=== PATIENT | female | born 1935 | race Caucasian/White ===

== ENCOUNTER 2016-05-12 19:58 | Inpatient (IN) | payer MEDICARE ==
[~2016-05-12] VITALS: Ht 167.6 cm; Wt 130.8 kg
[~2016-05-12 19:58] MED LIST: ALLO100 PO; ALLO100T PO; AMIO200T PO; BUME2TAB PO; CARV6.25 PO; KLOR20TA6 PO; LEVO.1 PO; LORTA5 PO; O2; OXYC-360 PO; PARO10TA PO; SPIR25 PO; SPIR25TA PO; SYNT100T PO; WARF-60 PO; WARF5TAB PO; WARF6 PO; bedside commode
[2016-05-12] MEDS ORDERED: SODIUM CHLORIDE 0.9% FLUSH 5 ML FLUSH IVF PRN (20:00)
[2016-05-12] MEDS ORDERED: FUROSEMIDE 40 MG/4 ML VIAL IVP ONE (20:00)
--- NOTE | 2016-05-12 20:09 | PD ---
HPI Chief Complaint: respiratory complaint Time Seen by Provider: 20:04 Travel History International Travel<30 days: No Contact w/Intl Traveler<30days: No Traveled to known affect area: No History of Present Illness HPI 80-year-old female presents to the emergency department by EMS transport from home for 6 hours of shortness of breath. Shortness of breath has been progressive. Patient has history of COPD and CHF. Patient uses supplemental oxygen 2 L per minute nasal cannula at all times at home. According to EMS her O2 saturations on 2 L/m nasal cannula was 86%. Patient was identified to have diffuse expiratory wheezes and diminished breath sounds and was placed on supplemental oxygen updraft treatments 2 and administer Solu-Medrol 125 mg. Patient's had no recent fever chills or productive cough. She denies chest pain. No report of referred neck jaw back shoulder arm or abdominal pain. No report of new lower from a pain or swelling. Patient is able to relay her history although does continue to complain of some shortness of breath. PFSH Past Medical History Narrative Medical CHF COPD mitral valve replacement endocarditis atrial fibrillation Coumadin therapy diabetes bowel obstruction renal insufficiency hypertension gouty arthritis hysterectomy hypothyroidism sleep apnea cholecystectomy appendectomy partial colectomy polypectomy malignant rectal cancer excision no tobacco use no alcohol use no substance use nursing notes reviewed Arthritis: Yes Asthma: No Atrial Fibrillation: Yes Heart Rhythm Problems: Yes (A-FIB) Cardiac Catheterization: Yes Cardiovascular Problems: Yes (MVR DUE TO ENDOCARDITIS) High Cholesterol: Yes Chest Pain: No Congestive Heart Failure: Yes COPD: Yes Diabetes: Yes Gastrointestinal Disorders: Yes (BOWEL OBSTRUCTION) Gout: Yes Genitourinary: Yes (RENAL INSUFFICIENCY A COMPLICATION OF HEART SURGERY) Hiatal Hernia: Yes Hypertension: Yes Immune Disorder: No Musculoskeletal: Yes (OSTEOARTHRITIS) Neurologic: No Psychiatric: No Reproductive: Yes (HYSTRECTOMY IN 1973) Respiratory: Yes Myocardial Infarction: No Pneumonia: Yes Renal Failure: Yes (CHRONIC RENAL INSUFFICENCY) Sleep Apnea: Yes Thyroid Disease: Yes Tubal Ligation: Yes Past Surgical History Abdominal Surgery: Yes (GALLBLADDER REMOVED 2000) Appendectomy: Yes Cardiac Surgery: Yes (MITRAL VALVE REPLACEMENT S/P ENDOCARDITIS) Cholecystectomy: Yes (2000) Coronary Artery Bypass Graft: No Ear Surgery: No Endocrine Surgery: No Eye Surgery: Yes (CATARACTS REMOVED 1998/ 2000/ 2001) Genitourinary Surgery: No Gynecologic Surgery: Yes (HYSTRECTOMY- 1973) Hysterectomy: Yes Oral Surgery: Yes (PLATES) Thoracic Surgery: No Tonsillectomy: Yes Other Surgery: Yes (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, COLON RESECTION, POLYPECTOMY) Social History Alcohol Use: No Tobacco Use: No Substance Use: No Allergies-Medications (Allergen,Severity, Reaction): Coded Allergies: Benzodiazepines (Verified Allergy, Severe, RAPID HEART BEAT, 05/12/16) Valium (Verified Allergy, Severe, Anxiety, 05/12/16) Clindamycin (Verified Adverse Reaction, Intermediate, chest pain, 05/12/16) Reported Meds & Prescriptions Reported Meds & Active Scripts Active Zyloprim (Allopurinol) 100 Mg Tab 100 Mg PO DAILY Bumex (Bumetanide) 2 Mg Tab 2 Mg PO DAILY 90 Days Synthroid 100 mcg (Levothyroxine Sodium) 100 Mcg Tab 100 Mcg PO DAILY 90 Days Coreg 6.25 mg (Carvedilol) 6.25 Mg Tab 6.25 Mg PO BID 90 Days [bedside commode] Dx: 278.01, 428 Reported Warfarin 2.5 Mg Tab 2.5 Mg PO SUNDAY Warfarin Sodium 5 Mg Tab 5 Mg PO EVERY DAY EXCEPT SUN Spironolactone 25 Mg Tab 25 Mg PO DAILY Hydrocodone/Acetaminophen 5 mg/325 mg 1 Tab Tab 1 Tab PO Q6H PRN Amiodarone Hcl (Amiodarone HCl) 200 Mg Tab 200 Mg PO DAILY Paroxetine Hcl 10 Mg Tab 10 Mg PO DAILYPRN K-Dur (Potassium Chloride) 20 Meq Tabcr 20 Meq PO DAILY [O2] 2 L PRN PRN Review of Systems Except as stated in HPI: all other systems reviewed are Neg General / Constitutional: No: Fever, Chills HENT: No: Congestion Cardiovascular: No: Chest Pain or Discomfort Respiratory: Positive: Shortness of Breath, Wheezing Gastrointestinal: No: Nausea, Vomiting, Abdominal Pain Genitourinary: No: Flank Pain Musculoskeletal: No: Myalgias, Arthralgias Skin: No Rash Neurologic: No: Weakness Psychiatric: No: Anxiety Hematologic/Lymphatic: No: Lymph Node Enlargement Physical Exam Narrative GENERAL: Well-developed well-nourished obese female in moderate respiratory distress able to convey her own history and speak and complete sentences. GCS 15. SKIN: Warm and dry. HEAD: Normocephalic. EYES: No scleral icterus. No injection or drainage. NECK: Supple, trachea midline. No JVD or lymphadenopathy. CARDIOVASCULAR: Regular rate and rhythm without murmurs, gallops, or rubs. RESPIRATORY: Breath sounds equal bilaterally markedly diminished bilaterally with extra wheezes and few rales right base. No accessory muscle use. GASTROINTESTINAL: Abdomen soft, non-tender, nondistended. MUSCULOSKELETAL: No cyanosis, or edema. BACK: Nontender without obvious deformity. No CVA tenderness. Data Data Last Documented VS Vital Signs Date Time Temp Pulse Resp B/P Pulse Ox O2 Delivery O2 Flow Rate FiO2 05/12/16 23:31 80 24 128/74 100 BiPAP 100 05/12/16 20:22 98.0 05/12/16 20:10 6.00 Orders Complete Blood Count With Diff (05/12/16 20:00) Basic Metabolic Panel (Bmp) (05/12/16 20:00) B-Type Natriuretic Peptide (05/12/16 20:00) Act Partial Throm Time (Ptt) (05/12/16 20:00) Prothrombin Time / Inr (Pt) (05/12/16 20:00) Magnesium (Mg) (05/12/16 20:00) Ckmb (Isoenzyme) Profile (05/12/16 20:00) Troponin I (05/12/16 20:00) Iv Access Insert/Monitor (05/12/16 20:00) Electrocardiogram (05/12/16 20:00) Ecg Monitoring (05/12/16 20:00) Oximetry (05/12/16 20:00) Oxygen Administration (05/12/16 20:00) Chest, Single Ap (05/12/16 20:00) Sodium Chloride 0.9% Flush (Ns Flush) (05/12/16 20:00) Furosemide Inj (Lasix Inj) (05/12/16 20:00) Albuterol-Ipratropium Neb (Duoneb Neb) (05/12/16 20:00) Urinary Catheter Insert/Apply (05/12/16 20:34) Arterial Blood Gas (Abg) (05/12/16 ) Albuterol-Ipratropium Neb (Duoneb Neb) (05/12/16 23:15) Resp Bipap / Cpap Non Invas Vt (05/12/16 ) Piperacil-Tazo 4.5 Gm Premix (Zosyn 4.5 (05/12/16 23:15) Blood Culture (05/12/16 23:05) Labs Laboratory Tests Test 05/12/16 20:20 White Blood Count 7.4 TH/MM3 Red Blood Count 3.91 MIL/MM3 Hemoglobin 12.9 GM/DL Hematocrit 38.8 % Mean Corpuscular Volume 99.3 FL Mean Corpuscular Hemoglobin 32.9 PG Mean Corpuscular Hemoglobin 33.1 % Concent Red Cell Distribution Width 16.1 % Platelet Count 186 TH/MM3 Mean Platelet Volume 10.0 FL Neutrophils (%) (Auto) 80.2 % Lymphocytes (%) (Auto) 7.8 % Monocytes (%) (Auto) 10.1 % Eosinophils (%) (Auto) 1.2 % Basophils (%) (Auto) 0.7 % Neutrophils # (Auto) 5.9 TH/MM3 Lymphocytes # (Auto) 0.6 TH/MM3 Monocytes # (Auto) 0.7 TH/MM3 Eosinophils # (Auto) 0.1 TH/MM3 Basophils # (Auto) 0.1 TH/MM3 CBC Comment DIFF FINAL Differential Comment Prothrombin Time 12.5 SEC Prothromb Time International 1.1 RATIO Ratio Activated Partial 23.3 SEC Thromboplast Time B-Type Natriuretic Peptide 191 PG/ML MDM Medical Decision Making Medical Screen Exam Complete: Yes Emergency Medical Condition: Yes Medical Record Reviewed: Yes Interpretation(s) EKG atrial fibrillation with controlled ventricular rate of 78 right bundle branch block pattern without acute ST elevation or acute injury pattern change noted Differential Diagnosis Dyspnea, exacerbation COPD, CHF, PE, pneumonia, ACS Narrative Course 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 Patient continues to deny any chest pain. O2 saturation on 2 L in the emergency department is 90% supplemental oxygen increased to 4 L/m nasal cannula @ 8:56 patient resting comfortably without work of breathing and O2 sats 92% 4 L /M NC @ 2135 patient at rest improved but marked dyspnea with minial exertion --plan for admission for CHF and copd exacerbation Diagnosis Primary Impression: COPD Additional Impressions: CHF (congestive heart failure) Qualified Code: I50.9 - Acute on chronic congestive heart failure, unspecified congestive heart failure type Pulmonary infiltrate Admitting Information Admitting Physician Requests: Admit Tasneem Alexander MD May 12, 2016 20:09
[2016-05-12 20:10] VITALS: O2SAT 97
[2016-05-12] MEDS ORDERED: WARF-18 PO (20:15)
[2016-05-12 20:18] VITALS: RESP 26; O2SAT 97
[2016-05-12 20:22] VITALS: BP 167/70; RESP 26; TEMP 98; O2SAT 97
[2016-05-12] MEDS: RESP: ALBUTEROL 2.5 MG/IPRATROPIUM 0.5 MG NEB (SCH) INH (20:22)
[2016-05-12 21:22] LABS: APTT (PATIENT) 23.3 SEC (24.3-30.1); INTERNATIONAL NORMALIZED RATIO 1.1 RATIO; PROTHROMBIN TIME - PATIENT 12.5 SEC (9.8-11.6)
--- NOTE | 2016-05-12 21:37 | RADRPT ---
EXAM DATE/TIME: 05/12/2016 20:13 [facility] COMPARISON: No previous studies available for comparison. INDICATIONS : SOB. MEDICAL HISTORY : Chronic obstructive pulmonary disease. SURGICAL HISTORY : CABG. ENCOUNTER: Initial ACUITY: 2 days PAIN SCORE: 0/10 LOCATION: chest FINDINGS: Heart size enlarged. Bilateral airspace disease predominantly left base and right upper lobe. Median sternotomy wires. No pneumothorax. Small effusions. CONCLUSION: 1. Global cardiomegaly with bilateral airspace disease most consolidative in the left lung base and r ight upper lobe. Primary differential diagnosis includes pneumonia and mild edema. Cyrus Espinoza MD on May 12, 2016 at 21:35 Board Certified Radiologist. This report was verified electronically.
[2016-05-12 21:39] LABS: AUTOMATED NEUTROPHIL # 5.9 TH/MM3 (1.8-7.7); BASOPHIL # 0.1 TH/MM3 (0-0.2); BASOPHIL % 0.7 % (0.0-2.0); EOSINOPHIL # 0.1 TH/MM3 (0-0.4); EOSINOPHIL % 1.2 % (0.0-4.0); HEMATOCRIT 38.8 % (35.0-46.0); HEMO FLAGS DIFF FINAL; LYMPH % 7.8 % (9.0-44.0); LYMPHOCYTE # 0.6 TH/MM3 (1.0-4.8); MEAN CELL VOLUME 99.3 FL (80.0-100.0); MEAN CORPUSCULAR HEMOGLOBIN 32.9 PG (27.0-34.0); MEAN CORPUSCULAR HGB CONC 33.1 % (32.0-36.0); MONO % 10.1 % (0.0-8.0); NEUT % 80.2 % (16.0-70.0); PLATELET COUNT 186 TH/MM3 (150-450); RED BLOOD COUNT 3.91 MIL/MM3 (4.00-5.30); RED CELL DISTRIBUTION WIDTH 16.1 % (11.6-17.2); WHITE BLOOD COUNT 7.4 TH/MM3 (4.0-11.0)
[2016-05-12 23:00] VITALS: O2SAT 100
[2016-05-12] MEDS ORDERED: RESP: ALBUTEROL 2.5 MG/IPRATROPIUM 0.5 MG NEB (SCH) NEB ONE (23:15)
[2016-05-12] MEDS ORDERED: PIPERACIL-TAZO 4.5 GM PREMIX 100 ML IV ONE (23:15)
[2016-05-12 23:31] VITALS: BP 128/74; PULSE 80; RESP 24; O2SAT 100
[2016-05-13] VITALS (13 sets, daily range): BP systolic 101–130; BP diastolic 50–77; PULSE 71–89; RESP 20–22; TEMP 97.7–98.7; O2SAT 91–99
[2016-05-13 00:11] LABS: BLOOD GAS BASE EXCESS 6.4 mmol/L (-2-2); BLOOD GAS CARBOXYHEMOGLOBIN 2.6 % (0-4); BLOOD GAS HCO3 32 mmol/L (22-26); BLOOD GAS METHEMOGLOBIN 1.7 % (0-2); BLOOD GAS O2 HGB SATURATION 96 % (90-100); BLOOD GAS OXYGEN CONTENT 17.8 Vol % (12.0-20.0); BLOOD GAS PCO2 58 mmHg (38-42); BLOOD GAS PO2 231 mmHG (61-120); BLOOD GAS TOTAL HGB 12.9 G/DL (12.0-16.0); TEMP CORR TO 98.6
[2016-05-13 00:11] LABS: BICARBONATE 32.3 MEQ/L (21.0-32.0); MAGNESIUM 2.1 MG/DL (1.5-2.5)
[2016-05-13 00:14] LABS: CRITICAL VALUE YES; OXYGEN DEVICE BiPAP
[2016-05-13 00:15] LABS: DRAW SITE LT RADIAL; FIO2 100 %; NUMBER OF ARTERIAL PUNCTURES 1; STAT YES; ULNAR PULSE PRESENT; VENT SETTINGS IPAP 14 /EPAP 5
[2016-05-13] MEDS ORDERED: BUMETANIDE INJ 1 MG/4 ML VIAL IV PUSH ONE (00:15)
[2016-05-13] MEDS ORDERED: SODIUM CHLORIDE 0.9% FLUSH 5 ML FLUSH IVF PRN ×2 (00:15→04:15)
[2016-05-13 00:16] LABS: POTASSIUM 5.2 MEQ/L (3.5-5.1)
[2016-05-13 01:01] LABS: BLOOD, URINE NEG (NEG); GLUCOSE,URINE NEG (NEG); KETONE, URINE NEG (NEG); MUCUS URINE FEW /lpf (OCC); NITRITE,URINE NEG (NEG); PH, URINE 5.5 (5.0-8.5); SQUAMOUS EPITHELIAL CELL URINE 1 /hpf (0-5); URINE COLOR YELLOW (YELLW/STRAW)
[2016-05-13 01:03] LABS: COMMENT (UR) CATH-CULT NOT IND; CULTURE IF INDICATED CATH CULTURE NOT IND
[2016-05-13] MEDS ORDERED: ONDANSETRON HCL 4 MG/2 ML VIAL IV PUSH ONE (01:30)
[2016-05-13] MEDS ORDERED: MORPHINE SULFATE 4 MG/ML INJ IV PUSH ONE (01:30)
[2016-05-13] MEDS ORDERED: CHLORHEXIDINE GLUCONATE 2 % 1 PACK (2 CLOTHS) TOP PRN (04:15)
[2016-05-13] MEDS ORDERED: ACETAMINOPHEN 325 MG TAB PO PRN (04:15)
[2016-05-13] MEDS ORDERED: MISCELLANEOUS NURSING INFORMATION XX SCH (04:15)
--- NOTE | 2016-05-13 04:41 | PD.CONS ---
[facility] Service Critical Care Medicine Consult Requested By Primary Care Physician Isac Chanel MD History of Present Illness HPI 80-year-old female presents to the emergency department by EMS transport from home for 6 hours of shortness of breath. Shortness of breath has been progressive. Patient has history of COPD and CHF. Patient uses supplemental oxygen 2 L per minute nasal cannula at all times at home. According to EMS her O2 saturations on 2 L/m nasal cannula was 86%. Patient was identified to have diffuse expiratory wheezes and diminished breath sounds and was placed on supplemental oxygen updraft treatments 2 and administer Solu-Medrol 125 mg. Patient's had no recent fever chills or productive cough. She denies chest pain. No report of referred neck jaw back shoulder arm or abdominal pain. No report of new lower from a pain or swelling. Patient is able to relay her history although does continue to complain of some shortness of breath. Patient was initiated on BiPAP. She was accepted by critical care medicine service for admission. When I evaluated the patient she was on BiPAP with full facemask. She had diuresed him 1 with Bumex. Stated that she is sleeping better. Denied any chest pain currently at the time of my evaluation. History PFSH Past Medical History Narrative Medical CHF COPD mitral valve replacement endocarditis atrial fibrillation Coumadin therapy diabetes bowel obstruction renal insufficiency hypertension gouty arthritis hysterectomy hypothyroidism sleep apnea cholecystectomy appendectomy partial colectomy polypectomy malignant rectal cancer excision no tobacco use no alcohol use no substance use nursing notes reviewed Arthritis: Yes Asthma: No Atrial Fibrillation: Yes Heart Rhythm Problems: Yes (A-FIB) Cardiac Catheterization: Yes Cardiovascular Problems: Yes (MVR DUE TO ENDOCARDITIS) High Cholesterol: Yes Chest Pain: No Congestive Heart Failure: Yes COPD: Yes Diabetes: Yes Gastrointestinal Disorders: Yes (BOWEL OBSTRUCTION) Gout: Yes Genitourinary: Yes (RENAL INSUFFICIENCY A COMPLICATION OF HEART SURGERY) Hiatal Hernia: Yes Hypertension: Yes Immune Disorder: No Musculoskeletal: Yes (OSTEOARTHRITIS) Neurologic: No Psychiatric: No Reproductive: Yes (HYSTRECTOMY IN 1973) Respiratory: Yes Myocardial Infarction: No Pneumonia: Yes Renal Failure: Yes (CHRONIC RENAL INSUFFICENCY) Sleep Apnea: Yes Thyroid Disease: Yes Tubal Ligation: Yes Past Surgical History Abdominal Surgery: Yes (GALLBLADDER REMOVED 2000) Appendectomy: Yes Cardiac Surgery: Yes (MITRAL VALVE REPLACEMENT S/P ENDOCARDITIS) Cholecystectomy: Yes (2000) Coronary Artery Bypass Graft: No Ear Surgery: No Endocrine Surgery: No Eye Surgery: Yes (CATARACTS REMOVED 2001) Genitourinary Surgery: No Gynecologic Surgery: Yes (HYSTRECTOMY- 1974) Hysterectomy: Yes Oral Surgery: Yes (PLATES) Thoracic Surgery: No Tonsillectomy: Yes Other Surgery: Yes (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, COLON RESECTION, POLYPECTOMY) Social History Alcohol Use: No Tobacco Use: No Substance Use: No Allergies-Medications Allergies-Medications (Allergen,Severity, Reaction): Coded Allergies: Benzodiazepines (Verified Allergy, Severe, RAPID HEART BEAT, 05/12/16) Valium (Verified Allergy, Severe, Anxiety, 05/12/16) Clindamycin (Verified Adverse Reaction, Intermediate, chest pain, 05/12/16) Reported Meds & Prescriptions Reported Meds & Active Scripts Active Zyloprim (Allopurinol) 100 Mg Tab 100 Mg PO DAILY Bumex (Bumetanide) 2 Mg Tab 2 Mg PO DAILY 90 Days Synthroid 100 mcg (Levothyroxine Sodium) 100 Mcg Tab 100 Mcg PO DAILY 90 Days Coreg 6.25 mg (Carvedilol) 6.25 Mg Tab 6.25 Mg PO BID 90 Days [bedside commode] Dx: 278.01, 428 Reported Warfarin 2.5 Mg Tab 2.5 Mg PO SUNDAY Warfarin Sodium 5 Mg Tab 5 Mg PO EVERY DAY EXCEPT SUN Spironolactone 25 Mg Tab 25 Mg PO DAILY Hydrocodone/Acetaminophen 5 mg/325 mg 1 Tab Tab 1 Tab PO Q6H PRN Amiodarone Hcl (Amiodarone HCl) 200 Mg Tab 200 Mg PO DAILY Paroxetine Hcl 10 Mg Tab 10 Mg PO DAILYPRN K-Dur (Potassium Chloride) 20 Meq Tabcr 20 Meq PO DAILY [O2] 2 L PRN PRN ROS Review of Systems Except as stated in HPI: all other systems reviewed are Neg General / Constitutional: No: Fever, Chills HENT: No: Congestion Cardiovascular: No: Chest Pain or Discomfort Respiratory: Positive: Shortness of Breath, Wheezing Gastrointestinal: No: Nausea, Vomiting, Abdominal Pain Genitourinary: No: Flank Pain Musculoskeletal: No: Myalgias, Arthralgias Skin: No Rash Neurologic: No: Weakness Psychiatric: No: Anxiety Hematologic/Lymphatic: No: Lymph Node Enlargement Past Family Social History Allergies: Coded Allergies: Benzodiazepines (Verified Allergy, Severe, RAPID HEART BEAT, 05/12/16) Valium (Verified Allergy, Severe, Anxiety, 05/12/16) Clindamycin (Verified Adverse Reaction, Intermediate, chest pain, 05/12/16) Physical Exam Vital Signs Vital Signs Date Time Temp Pulse Resp B/P Pulse Ox O2 Delivery O2 Flow Rate FiO2 05/13/16 04:09 97 60 05/13/16 02:47 18 05/13/16 01:52 82 22 102/75 97 BiPAP 100 05/13/16 00:10 95 50 05/12/16 23:31 80 24 128/74 100 BiPAP 100 05/12/16 23:00 100 100 05/12/16 20:31 26 98 Aerosol Mask 05/12/16 20:22 98.0 26 167/70 97 05/12/16 20:18 26 97 Aerosol Mask 05/12/16 20:18 Aerosol Mask 05/12/16 20:10 97 Nasal Cannula 6.00 Physical Exam Narrative GENERAL: Well-developed well-nourished obese female in moderate respiratory distress able to convey her own history and speak and complete sentences. GCS 15. SKIN: Warm and dry. HEAD: Normocephalic. EYES: No scleral icterus. No injection or drainage. NECK: Supple, trachea midline. No JVD or lymphadenopathy. CARDIOVASCULAR: Regular rate and rhythm without murmurs, gallops, or rubs. RESPIRATORY: Breath sounds equal bilaterally markedly diminished bilaterally with extra wheezes and few rales right base. No accessory muscle use. GASTROINTESTINAL: Abdomen soft, non-tender, nondistended. MUSCULOSKELETAL: No cyanosis, or edema. BACK: Nontender without obvious deformity. No CVA tenderness. Laboratory Laboratory Tests Test 05/12/16 05/12/16 05/12/16 20:20 23:20 23:59 White Blood Count 7.4 Red Blood Count 3.91 Hemoglobin 12.9 Hematocrit 38.8 Mean Corpuscular Volume 99.3 Mean Corpuscular Hemoglobin 32.9 Mean Corpuscular Hemoglobin 33.1 Concent Red Cell Distribution Width 16.1 Platelet Count 186 Mean Platelet Volume 10.0 Neutrophils (%) (Auto) 80.2 Lymphocytes (%) (Auto) 7.8 Monocytes (%) (Auto) 10.1 Eosinophils (%) (Auto) 1.2 Basophils (%) (Auto) 0.7 Neutrophils # (Auto) 5.9 Lymphocytes # (Auto) 0.6 Monocytes # (Auto) 0.7 Eosinophils # (Auto) 0.1 Basophils # (Auto) 0.1 CBC Comment DIFF FINAL Differential Comment Prothrombin Time 12.5 Prothromb Time International 1.1 Ratio Activated Partial 23.3 Thromboplast Time B-Type Natriuretic Peptide 191 Urine Color YELLOW Urine Turbidity CLEAR Urine pH 5.5 Urine Specific [place] 1.024 Urine Protein 30 Urine Glucose (UA) NEG Urine Ketones NEG Urine Occult Blood NEG Urine Nitrite NEG Urine Bilirubin NEG Urine Urobilinogen 2.0 Urine Leukocyte Esterase NEG Urine RBC 1 Urine WBC 1 Urine Squamous Epithelial 1 Cells Urine Mucus FEW Microscopic Urinalysis Comment CATH-CULT NOT IND Sodium Level 138 Potassium Level 5.2 Chloride Level 97 Carbon Dioxide Level 32.3 Anion Gap 9 Blood Urea Nitrogen 30 Creatinine 1.42 Estimat Glomerular Filtration 35 Rate Random Glucose 150 Calcium Level 8.9 Magnesium Level 2.1 Total Creatine Kinase 66 Troponin I 0.03 Blood Gas Puncture Site LT RADIAL Blood Gas Patient Temperature 98.6 Blood Gas HCO3 32 Blood Gas Base Excess 6.4 Blood Gas Oxygen Saturation 96 Arterial Blood pH 7.36 Arterial Blood Partial 58 Pressure CO2 Arterial Blood Partial 231 Pressure O2 Arterial Blood Oxygen Content 17.8 Arterial Blood 2.6 Carboxyhemoglobin Arterial Blood Methemoglobin 1.7 Blood Gas Hemoglobin 12.9 Oxygen Delivery Device BiPAP Blood Gas Ventilator Setting IPAP 14 /EPAP 5 Blood Gas Inspired Oxygen 100 Date/Time Procedure Status Source Growth 05/12/16 23:55 Aerobic Blood Culture Received Blood Peripheral Pending 05/12/16 23:55 Anaerobic Blood Culture Received Blood Peripheral Pending Result Diagram: 05/12/16201905/12/16 2320 Imaging Last Impressions Chest X-Ray 05/12/161999 Signed Impressions: Service Date/Time: Thursday, May 12, 2016 20:13 - CONCLUSION: 1. Global cardiomegaly with bilateral airspace disease most consolidative in the left lung base and right upper lobe. Primary differential diagnosis includes pneumonia and mild edema. Cyrus Espinoza MD Assessment and Plan Assessment and Plan 80-year-old female with: Acute respiratory failure requiring BiPAP CHF Suspected pneumonia COPD A. fib Diabetes mellitus Hypertension Gout History of mitral valve replacement for endocarditis History of A. fib Plan: Neuro: Follow neuro status, pain medications as needed. Cardiovascular: Diuresis with Bumex, strict intake output, watch for hypotension. Continue amiodarone, Coreg. Continue Coumadin for anticoagulation Pulmonary: Continue BiPAP for noninvasive positive pressure ventilation. Bronchodilators, Solu-Medrol GI/liver: Nothing by mouth for now. If respiratory status improves, initiated. Diet in a.m. /renal: Diurese with Bumex, strict intake output, monitor and replete electrolytes, follow BUN/creatinine ID: Empiric antibiotic coverage with IV cefepime for suspected pneumonia Endocrine: SSI for glycemic control Heme: Follow CBC Prophylaxis: PPI/SCDs/heparin. Coumadin to be continued. Condition critical Time spent on critical care excluding procedures 50 minutes Jayden Lawrence MD May 13, 2016 04:41
[2016-05-13] MEDS ORDERED: PARoxetine HCL 20 MG TAB PO PRN (04:45)
[2016-05-13] MEDS: LEVOTHYROXINE SODIUM 100 MCG TAB PO SCH (06:00)
[2016-05-13] MEDS: CEFEPIME INJ 1,000 MG in SODIUM CHLORIDE 0.9% INJ 100 ML IV SCH ×3 (06:04→21:06)
[2016-05-13] MEDS: HEPARIN SODIUM - SQ 10,000 UNITS/ML VIAL SQ SCH ×3 (06:04→21:05)
[2016-05-13] MEDS: INSULIN ASPART SUPPLEMENTAL SCALE SQ SCH ×4 (06:12→21:00)
[2016-05-13] MEDS: CHLORHEXIDINE 0.12% (ORAL KIT) 15 ML CUP MT SCH ×2 (08:00→20:00)
[2016-05-13] MEDS: BUMETANIDE INJ 1 MG/4 ML VIAL IV PUSH SCH ×2 (08:38→18:17)
[2016-05-13] MEDS: PANTOPRAZOLE SODIUM 40 MG VIAL IV SCH (08:38)
[2016-05-13] MEDS: SPIRONOLACTONE 25 MG TAB PO SCH (08:39)
[2016-05-13] MEDS: AMIODARONE 200 MG TAB PO SCH (08:39)
[2016-05-13] MEDS: methylPREDNISolone SOD SUCC 125 MG/2 ML VIAL IV PUSH SCH ×2 (08:39→21:05)
[2016-05-13] MEDS: CARVEDILOL 6.25 MG TAB PO SCH ×2 (08:39→21:07)
[2016-05-13] MEDS: ALLOPURINOL 100 MG TAB PO SCH (08:40)
[2016-05-13] MEDS: SODIUM CHLORIDE 0.9% FLUSH 5 ML FLUSH IVF SCH ×2 (08:40→21:07)
[2016-05-13] MEDS ORDERED: SODIUM CHLORIDE 0.9% FLUSH 5 ML FLUSH IVF SCH (09:00)
[2016-05-13 09:06] LABS: AUTOMATED NEUTROPHIL # 5.3 TH/MM3 (1.8-7.7); BASOPHIL % 0.3 % (0.0-2.0); HEMATOCRIT 38.1 % (35.0-46.0); HEMO FLAGS DIFF FINAL; LYMPH % 3.3 % (9.0-44.0); LYMPHOCYTE # 0.2 TH/MM3 (1.0-4.8); MEAN CELL VOLUME 99.9 FL (80.0-100.0); MEAN CORPUSCULAR HEMOGLOBIN 32.3 PG (27.0-34.0); MEAN CORPUSCULAR HGB CONC 32.4 % (32.0-36.0); MONO % 1.4 % (0.0-8.0); PLATELET COUNT 155 TH/MM3 (150-450); RED BLOOD COUNT 3.81 MIL/MM3 (4.00-5.30); RED CELL DISTRIBUTION WIDTH 15.9 % (11.6-17.2); WHITE BLOOD COUNT 5.6 TH/MM3 (4.0-11.0)
[2016-05-13 09:17] LABS: INTERNATIONAL NORMALIZED RATIO 1.2 RATIO; PROTHROMBIN TIME - PATIENT 12.9 SEC (9.8-11.6)
[2016-05-13 09:43] LABS: BICARBONATE 33.8 MEQ/L (21.0-32.0); MAGNESIUM 2.1 MG/DL (1.5-2.5); POTASSIUM 4.9 MEQ/L (3.5-5.1)
[2016-05-13] MEDS: ACETAMINOPHEN/HYDROcodone 325 MG/5 MG TAB PO PRN (18:17)
[2016-05-13] MEDS: WARFARIN SOD 5 MG TAB PO SCH (18:19)
[2016-05-14] VITALS (12 sets, daily range): BP systolic 105–144; BP diastolic 57–65; PULSE 55–75; RESP 20; TEMP 98–98.8; O2SAT 89–95
[2016-05-14] MEDS: CHLORHEXIDINE GLUCONATE 2 % 1 PACK (2 CLOTHS) TOP SCH (04:00)
[2016-05-14] MEDS: HEPARIN SODIUM - SQ 10,000 UNITS/ML VIAL SQ SCH ×3 (05:26→21:17)
[2016-05-14] MEDS: CEFEPIME INJ 1,000 MG in SODIUM CHLORIDE 0.9% INJ 100 ML IV SCH ×3 (05:26→21:18)
[2016-05-14] MEDS: LEVOTHYROXINE SODIUM 100 MCG TAB PO SCH (05:27)
[2016-05-14] MEDS: INSULIN ASPART SUPPLEMENTAL SCALE SQ SCH ×4 (05:59→21:18)
[2016-05-14 06:09] LABS: AUTOMATED NEUTROPHIL # 6.7 TH/MM3 (1.8-7.7); BASOPHIL % 0.1 % (0.0-2.0); HEMATOCRIT 37.5 % (35.0-46.0); HEMO FLAGS DIFF FINAL; LYMPH % 3.3 % (9.0-44.0); LYMPHOCYTE # 0.2 TH/MM3 (1.0-4.8); MEAN CELL VOLUME 100.7 FL (80.0-100.0); MEAN CORPUSCULAR HEMOGLOBIN 31.8 PG (27.0-34.0); MEAN CORPUSCULAR HGB CONC 31.6 % (32.0-36.0); MONO % 4.8 % (0.0-8.0); NEUT % 91.8 % (16.0-70.0); PLATELET COUNT 146 TH/MM3 (150-450); RED BLOOD COUNT 3.73 MIL/MM3 (4.00-5.30); WHITE BLOOD COUNT 7.3 TH/MM3 (4.0-11.0)
[2016-05-14 06:20] LABS: ALT (GPT) 22 U/L (10-53); ANION GAP 6 MEQ/L (5-15); AST (GOT) 19 U/L (15-37); BICARBONATE 33.4 MEQ/L (21.0-32.0); BLOOD UREA NITROGEN 46 MG/DL (7-18); CHLORIDE 98 MEQ/L (98-107); GLOMERULAR FILTRATION RATE 26 ML/MIN (>89); POTASSIUM 4.8 MEQ/L (3.5-5.1); SODIUM (NA) 137 MEQ/L (136-145)
[2016-05-14 06:23] LABS: ALKALINE PHOSPHATASE 48 U/L (45-117); TOTAL BILIRUBIN ADULT 0.7 MG/DL (0.2-1.0)
[2016-05-14] MEDS: ACETAMINOPHEN/HYDROcodone 325 MG/5 MG TAB PO PRN ×3 (06:38→19:39)
[2016-05-14] MEDS: CHLORHEXIDINE 0.12% (ORAL KIT) 15 ML CUP MT SCH ×2 (08:00→20:00)
[2016-05-14] MEDS: BUMETANIDE INJ 1 MG/4 ML VIAL IV PUSH SCH (09:02)
[2016-05-14] MEDS: SODIUM CHLORIDE 0.9% FLUSH 5 ML FLUSH IVF SCH ×2 (09:02→21:00)
[2016-05-14] MEDS: methylPREDNISolone SOD SUCC 125 MG/2 ML VIAL IV PUSH SCH ×2 (09:02→21:17)
[2016-05-14] MEDS: PANTOPRAZOLE SODIUM 40 MG VIAL IV SCH (09:02)
[2016-05-14] MEDS: CARVEDILOL 6.25 MG TAB PO SCH ×2 (09:03→21:00)
[2016-05-14] MEDS: SPIRONOLACTONE 25 MG TAB PO SCH (09:03)
[2016-05-14] MEDS: ALLOPURINOL 100 MG TAB PO SCH (09:03)
[2016-05-14] MEDS: AMIODARONE 200 MG TAB PO SCH (09:03)
--- NOTE | 2016-05-14 09:14 | HHI.CCPN ---
Subjective Remarks/Hospital Course 80-year-old female presents to the emergency department by EMS transport from home for 6 hours of shortness of breath. Shortness of breath has been progressive. Patient has history of COPD and CHF. Patient uses supplemental oxygen 2 L per minute nasal cannula at all times at home. According to EMS her O2 saturations on 2 L/m nasal cannula was 86%. Patient was identified to have diffuse expiratory wheezes and diminished breath sounds and was placed on supplemental oxygen updraft treatments 2 and administer Solu-Medrol 125 mg. Patient's had no recent fever chills or productive cough. She denies chest pain. No report of referred neck jaw back shoulder arm or abdominal pain. No report of new lower from a pain or swelling. Patient is able to relay her history although does continue to complain of some shortness of breath. Patient was initiated on BiPAP. She was accepted by critical care medicine service for admission. When I evaluated the patient she was on BiPAP with full facemask. She had diuresed him 1 with Bumex. Stated that she is sleeping better. Denied any chest pain currently at the time of my evaluation. 05/14 Patient was on BIPAP from 11p to 5am. Now on 50% VM. Afebrile. Objective Vital Signs Date Time Temp Pulse Resp B/P Pulse Ox O2 Delivery O2 Flow Rate FiO2 05/14/16 08:00 75 05/14/16 08:00 98.0 20 115/65 89 05/14/16 08:00 Venturi Mask 50 05/14/16 05:40 6.00 Intake and Output 05/13/16 05/13/16 05/14/16 08:00 16:00 00:00 Intake Total 100 ml 1000 ml Output Total 1000 ml 425 ml Balance -900 ml 575 ml Result Diagram: 05/14/16 0536 05/14/16 0536 Other Results Laboratory Tests Test 05/14/16 05:36 White Blood Count 7.3 TH/MM3 Red Blood Count 3.73 MIL/MM3 Hemoglobin 11.9 GM/DL Hematocrit 37.5 % Mean Corpuscular Volume 100.7 FL Mean Corpuscular Hemoglobin 31.8 PG Mean Corpuscular Hemoglobin 31.6 % Concent Red Cell Distribution Width 16.0 % Platelet Count 146 TH/MM3 Mean Platelet Volume 9.3 FL Neutrophils (%) (Auto) 91.8 % Lymphocytes (%) (Auto) 3.3 % Monocytes (%) (Auto) 4.8 % Eosinophils (%) (Auto) 0.0 % Basophils (%) (Auto) 0.1 % Neutrophils # (Auto) 6.7 TH/MM3 Lymphocytes # (Auto) 0.2 TH/MM3 Monocytes # (Auto) 0.4 TH/MM3 Eosinophils # (Auto) 0.0 TH/MM3 Basophils # (Auto) 0.0 TH/MM3 CBC Comment DIFF FINAL Differential Comment Sodium Level 137 MEQ/L Potassium Level 4.8 MEQ/L Chloride Level 98 MEQ/L Carbon Dioxide Level 33.4 MEQ/L Anion Gap 6 MEQ/L Blood Urea Nitrogen 46 MG/DL Creatinine 1.87 MG/DL Estimat Glomerular Filtration 26 ML/MIN Rate Random Glucose 145 MG/DL Calcium Level 8.4 MG/DL Total Bilirubin 0.7 MG/DL Aspartate Amino Transf 19 U/L (AST/SGOT) Alanine Aminotransferase 22 U/L (ALT/SGPT) Alkaline Phosphatase 48 U/L Total Protein 6.5 GM/DL Albumin 3.1 GM/DL Imaging Last Impressions Chest X-Ray 05/12/161999 Signed Impressions: Service Date/Time: Thursday, May 12, 2016 20:13 - CONCLUSION: 1. Global cardiomegaly with bilateral airspace disease most consolidative in the left lung base and right upper lobe. Primary differential diagnosis includes pneumonia and mild edema. Cyrus Espinoza MD Objective Remarks GENERAL: Patient is 80 yo lying in bed in mild resp distress SKIN: Warm and dry. HEAD: Normocephalic. EYES: No scleral icterus. No injection or drainage. NECK: Supple, trachea midline. No JVD or lymphadenopathy. CARDIOVASCULAR: Regular rate and rhythm without murmurs, gallops, or rubs. RESPIRATORY: Breath sounds equal bilaterally. No accessory muscle use. GASTROINTESTINAL: Abdomen soft, non-tender, nondistended. MUSCULOSKELETAL: No cyanosis, or edema. Neuro: Awake and alert A/P Assessment and Plan 80-year-old female with: Acute respiratory failure requiring BiPAP CHF Suspected pneumonia Gram positive bacteremia COPD A. fib Diabetes mellitus Hypertension Gout History of mitral valve replacement for endocarditis History of A. fib Plan: Neuro: Awake and alert, Monitor neuro status, CV: Monitor HR and BP keep MAP>65mmHg. Continue Amiodarone 200mg daily, Coreg 6.25mg BID. Continue Coumadin for anticoagulation Check 2D echo to eval LV function Pulm: Wean down oxygen as adriano keep sat >92% Bronchodilators, solumederol 60mg Q12 NIPPV PRN for resp distress GI/liver: On PO diet /renal: Monitor renal function, I/O's, electrolytes replacement as needed Decrease Bumex 1mg daily, renal function worse today with Cr: 1.87 from 1.58 ID: Empiric antibiotic coverage with IV cefepime for suspected pneumonia Add Vancomycin, pharmacy to dose per renal function. check BC x 2 sets 05/12 BC 05/27 bottles: [facility] Endocrine: SSI for glycemic control Heme: Monitor CBC, INR/PT- on coumadin Prophylaxis: PPI/SCDs/heparin. On Coumadin monitor INR/PT PT eval and treat Level 3 Lilly Kenney MD May 14, 2016 09:14
[2016-05-14] MEDS ORDERED: VANCOMYCIN INJ 1,000 MG in SODIUM CHLOR 0.9% 250 ML INJ 250 ML IV ONE (09:15)
[2016-05-14] MEDS ORDERED: Vancomycin Consult Pharmacy 1 EA OTHER SCH (09:15)
[2016-05-14 10:41] LABS: INTERNATIONAL NORMALIZED RATIO 1.3 RATIO
[2016-05-14] MEDS: RESP: ALBUTEROL 2.5 MG/IPRATROPIUM 0.5 MG NEB (SCH) NEB ×4 (11:36→23:32)
[2016-05-14] MEDS: WARFARIN SOD 5 MG TAB PO SCH (17:00)
[2016-05-15] VITALS (14 sets, daily range): BP systolic 113–137; BP diastolic 55–76; PULSE 53–61; RESP 18–24; TEMP 97.5–98.4; O2SAT 92–96
[2016-05-15] MEDS: CHLORHEXIDINE GLUCONATE 2 % 1 PACK (2 CLOTHS) TOP SCH ×2 (04:00→22:45)
[2016-05-15] MEDS: RESP: ALBUTEROL 2.5 MG/IPRATROPIUM 0.5 MG NEB (SCH) NEB ×3 (04:12→11:40)
[2016-05-15] MEDS: ACETAMINOPHEN/HYDROcodone 325 MG/5 MG TAB PO PRN ×4 (05:04→16:44)
[2016-05-15] MEDS: LEVOTHYROXINE SODIUM 100 MCG TAB PO SCH (05:04)
[2016-05-15] MEDS: HEPARIN SODIUM - SQ 10,000 UNITS/ML VIAL SQ SCH ×3 (05:04→20:04)
[2016-05-15] MEDS: CEFEPIME INJ 1,000 MG in SODIUM CHLORIDE 0.9% INJ 100 ML IV SCH ×3 (05:04→22:45)
--- NOTE | 2016-05-15 05:26 | RADRPT ---
EXAM DATE/TIME: 05/15/2016 04:54 [place] COMPARISON: CHEST SINGLE AP, May 12, 2016, 20:13. INDICATIONS : Shortness of breath, possible pulmonary disease. MEDICAL HISTORY : Chronic obstructive pulmonary disease. SURGICAL HISTORY : CABG. ENCOUNTER: Subsequent ACUITY: 4 - 6 days PAIN SCORE: 0/10 LOCATION: Bilateral chest FINDINGS: There continues to be consolidation in the left lower lung which is stable compared to prior study. T he right lung is grossly clear and well-aerated. The previously noted infiltrate in the right upper l mabel has resolved. No new infiltrates are demonstrated. There is evidence of previous cardiothoracic s urgery. Heart size is enlarged but stable. The bony structures are stable. CONCLUSION: 1. The previously noted infiltrate in the right upper lung has resolved. 2. Stable parenchymal consolidation the left lung base. Gerard Quick MD on May 15, 2016 at 5:23 Board Certified Radiologist. This report was verified electronically.
[2016-05-15] MEDS: INSULIN ASPART SUPPLEMENTAL SCALE SQ SCH ×4 (06:14→20:03)
[2016-05-15 07:19] LABS: AUTOMATED NEUTROPHIL # 7.7 TH/MM3 (1.8-7.7); HEMATOCRIT 36.7 % (35.0-46.0); HEMO FLAGS DIFF FINAL; INTERNATIONAL NORMALIZED RATIO 1.5 RATIO; LYMPH % 2.6 % (9.0-44.0); LYMPHOCYTE # 0.2 TH/MM3 (1.0-4.8); MEAN CELL VOLUME 99.1 FL (80.0-100.0); MEAN CORPUSCULAR HEMOGLOBIN 32.2 PG (27.0-34.0); MEAN CORPUSCULAR HGB CONC 32.5 % (32.0-36.0); MONO % 4.2 % (0.0-8.0); NEUT % 93.2 % (16.0-70.0); PLATELET COUNT 174 TH/MM3 (150-450); PROTHROMBIN TIME - PATIENT 16.5 SEC (9.8-11.6); RED CELL DISTRIBUTION WIDTH 15.9 % (11.6-17.2); WHITE BLOOD COUNT 8.2 TH/MM3 (4.0-11.0)
[2016-05-15 07:44] LABS: BICARBONATE 29.3 MEQ/L (21.0-32.0); POTASSIUM 4.8 MEQ/L (3.5-5.1)
[2016-05-15] MEDS: CHLORHEXIDINE 0.12% (ORAL KIT) 15 ML CUP MT SCH ×2 (08:00→20:00)
[2016-05-15] MEDS: ALLOPURINOL 100 MG TAB PO SCH (08:51)
[2016-05-15] MEDS: PANTOPRAZOLE SODIUM 40 MG VIAL IV SCH (08:51)
[2016-05-15] MEDS: AMIODARONE 200 MG TAB PO SCH (08:51)
[2016-05-15] MEDS: methylPREDNISolone SOD SUCC 125 MG/2 ML VIAL IV PUSH SCH (08:51)
[2016-05-15] MEDS: BUMETANIDE INJ 1 MG/4 ML VIAL IV PUSH SCH (08:51)
[2016-05-15] MEDS: SPIRONOLACTONE 25 MG TAB PO SCH (08:51)
[2016-05-15] MEDS: SODIUM CHLORIDE 0.9% FLUSH 5 ML FLUSH IVF SCH ×2 (08:52→20:04)
[2016-05-15] MEDS: CARVEDILOL 6.25 MG TAB PO SCH ×2 (09:00→20:04)
--- NOTE | 2016-05-15 09:50 | HHI.CCPN ---
Subjective Remarks/Hospital Course 80-year-old female presents to the emergency department by EMS transport from home for 6 hours of shortness of breath. Shortness of breath has been progressive. Patient has history of COPD and CHF. Patient uses supplemental oxygen 2 L per minute nasal cannula at all times at home. According to EMS her O2 saturations on 2 L/m nasal cannula was 86%. Patient was identified to have diffuse expiratory wheezes and diminished breath sounds and was placed on supplemental oxygen updraft treatments 2 and administer Solu-Medrol 125 mg. Patient's had no recent fever chills or productive cough. She denies chest pain. No report of referred neck jaw back shoulder arm or abdominal pain. No report of new lower from a pain or swelling. Patient is able to relay her history although does continue to complain of some shortness of breath. Patient was initiated on BiPAP. She was accepted by critical care medicine service for admission. When I evaluated the patient she was on BiPAP with full facemask. She had diuresed him 1 with Bumex. Stated that she is sleeping better. Denied any chest pain currently at the time of my evaluation. 05/14 Patient was on BIPAP from 11p to 5am. Now on 50% VM. Afebrile. 05/15: Off BiPAP now on high flow nasal cannula 40%. Chest x-ray on my review continues to show bibasilar infiltrates. Will check CT of the chest to better evaluate for infiltrate versus effusion. OOB to chair today Objective Vital Signs Date Time Temp Pulse Resp B/P Pulse Ox O2 Delivery O2 Flow Rate FiO2 05/15/16 07:30 98.0 53 20 127/67 93 05/15/16 07:17 High Flow Nasal Cannula 40.00 80 Intake and Output 05/14/16 05/14/16 05/15/16 08:00 16:00 00:00 Intake Total 640 ml Output Total 350 ml Balance 290 ml Result Diagram: 05/15/16 0540 05/15/1640 Imaging Last Impressions Chest X-Ray 05/12/161999 Signed Impressions: Service Date/Time: Thursday, May 12, 2016 20:13 - CONCLUSION: 1. Global cardiomegaly with bilateral airspace disease most consolidative in the left lung base and right upper lobe. Primary differential diagnosis includes pneumonia and mild edema. Cyrus Espinoza MD Objective Remarks GENERAL: Patient is 80 yo lying in bed in mild resp distress SKIN: Warm and dry. HEAD: Normocephalic. EYES: No scleral icterus. No injection or drainage. NECK: Supple, trachea midline. No JVD or lymphadenopathy. CARDIOVASCULAR: Regular rate and rhythm without murmurs, gallops, or rubs. RESPIRATORY: Breath sounds equal bilaterally. No accessory muscle use. Diminished air entry at bilateral bases GASTROINTESTINAL: Abdomen soft, non-tender, nondistended. MUSCULOSKELETAL: No cyanosis, or edema. Neuro: Awake and alert. No focal deficits Urinary Catheter: Yes Assessment to: Continue A/P Assessment and Plan 80-year-old female with: Acute respiratory failure requiring BiPAP Congestive heart failure, systolic Suspected pneumonia Gram positive bacteremia COPD Cardiomyopathy A. fib Diabetes mellitus Hypertension Gout History of mitral valve replacement for endocarditis History of A. fib Plan: Neuro: -Awake and alert, Monitor neuro status, CV: -Monitor HR and BP keep MAP>65mmHg. -Continue Amiodarone 200mg daily, Coreg 6.25mg BID. Continue Coumadin for anticoagulation -Check 2D echo to eval LV function. 2-D echo in 2007 showed EF 435-40% Pulm: -Wean down oxygen as adriano keep sat >92% -Bronchodilators, solumederol 60mg Q12 -NIPPV PRN for resp distress -Pulmonology consulted, continue broad-spectrum antibiotic GI/liver: -On PO diet /renal: -Monitor renal function, I/O's, electrolytes replacement as needed Bumex 1mg daily, renal function worse today with Cr: 2.1 from 1.87. Patient had CKD ID: -Empiric antibiotic coverage with IV cefepime, Vanc for suspected pneumonia -ID consulted for GPC in blood 3/4 bottles, await 2 D Echo Endocrine: -SSI for glycemic control Heme: -Monitor CBC, INR/PT- on coumadin Prophylaxis: -PPI/SCDs. On Coumadin monitor INR/PT PT eval and treat Level 3. Consult [facility] Dr. Ayala to assume care in Katy Aguilar MD May 15, 2016 09:50
[2016-05-15] MEDS ORDERED: PNEUMOCOCCAL POLYVALENT INJ 25 MCG/0.5 ML SYR IM ONE (10:00)
[2016-05-15] MEDS ORDERED: VANCOMYCIN INJ 1,500 MG in SODIUM CHLORID 0.9% 500 ML INJ 500 ML IV ONE (11:00)
--- NOTE | 2016-05-15 11:27 | PD.CONS ---
History of Present Illness Service Infectious disease Consult Requested By Dr Sammy Aguilar Reason for Consult Evaluate patient with positive blood culture Primary Care Physician Isac Chanel MD Diagnoses: History of Present Illness Patient seen and examined. Records reviewed. Patient is an 80-year-old female, with known history of oxygen dependent COPD, uses 4 L of nasal O2 24 hours a day, percent to the hospital with an acute onset of severe shortness of breath. States that she's been having on and off worsening of her shortness of breath over the last 5 days. She really didn't pay too much attention to it, and most of the time she is not doing anything that would require exertion. She walks around in the house with a cane and a walker, and she stays in the house and goes out mostly when she has a doctor's appointment. On the day of admission however she had severe shortness of breath and she was panting, so she was taken to the hospital for further evaluation and treatment. Her chest x-ray showed bibasilar consolidation. She has not been febrile. She denies any significant cough or congestion. Denies any chest pain. Has not really had any nausea or vomiting or any syncopal episode. Patient did note that she was getting dizzy when she was at home during her severe shortness of breath. She has not had any diaphoresis. Her white count on admission was normal. She has not been febrile. 2 blood cultures were done and they are now reported as growing gram-positive cocci. One of the blood culture has quite negative staph and the other blood culture is still pending. A shunt continues to be short of breath. However she is on facemask and prior to that she had been requiring BiPAP. She gets short of breath just with talking. 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 Infectious disease consultation has been requested to evaluate the patient with positive blood culture. Review of Systems Constitutional: COMPLAINS OF: Fatigue, DENIES: Fever, Chills, Night Sweats Eyes: DENIES: Eye pain Ears, nose, mouth, throat: DENIES: Nasal discharge, Oral lesions, Throat pain, Ear Pain, Sinus Pain, Toothache Respiratory: COMPLAINS OF: Shortness of breath, DENIES: Cough, Sputum production Cardiovascular: COMPLAINS OF: Dyspnea on Exertion, Lower Extremity Edema, DENIES: Chest pain, Palpitations, Syncope Gastrointestinal: DENIES: Abdominal pain, Diarrhea, Nausea, Vomiting, Difficulty Swallowing Genitourinary: DENIES: Urgency, Dysuria Musculoskeletal: COMPLAINS OF: Joint Swelling, DENIES: Muscle aches Integumentary: DENIES: Rash Neurologic: DENIES: Headache Psychiatric: DENIES: Anxiety, Confusion Past Family Social History Allergies: Coded Allergies: Benzodiazepines (Verified Allergy, Severe, RAPID HEART BEAT, 05/12/16) Valium (Verified Allergy, Severe, Anxiety, 05/12/16) Clindamycin (Verified Adverse Reaction, Intermediate, chest pain, 05/12/16) Past Medical History COPD, O2 dependent CHF Hypothyroidism History of arrhythmia Hypertension Renal insufficiency Lower extremity edema History of rectal cancer History of precancerous colonic polyp Past Surgical History MVR for endocarditis in 1990 Tonsillectomy Appendectomy Hysterectomy Partial colectomy for precancerous polyp Transanal resection of rectal cancer Exploratory laparotomy, lysis of adhesion, cholecystectomy, and repair of ventral hernia back in 2007 Active Ordered Medications Tylenol [place] Albuterol Allopurinol Cordarone Bumex Coreg Cefepime Heparin Insulin Synthroid Solu-Medrol Protonix [place] Aldactone Vancomycin Coumadin Social History Lives alone at home History of smoking quit when she was in her 40s Alcohol abuse No illicit drug use Physical Exam Vital Signs Vital Signs Date Time Temp Pulse Resp B/P Pulse Ox O2 Delivery O2 Flow Rate FiO2 05/15/16 10:15 95 Partial Non-Rebreather 70 05/15/16 07:30 98.0 53 20 127/67 93 05/15/16 07:17 93 High Flow Nasal Cannula 40.00 80 05/15/16 07:00 93 4.00 80 05/15/16 07:00 53 05/15/16 03:00 95 4.00 40 05/15/16 03:00 97.9 54 20 113/60 95 05/15/16 03:00 54 05/14/16 23:00 55 05/14/16 23:00 98.0 66 20 144/57 95 05/14/16 23:00 88 4.00 40 05/14/16 20:40 18 05/14/16 19:28 94 High Flow Nasal Cannula 40.00 80 05/14/16 19:00 91 4.00 40 05/14/16 19:00 57 05/14/16 19:00 98.3 57 20 129/57 91 05/14/16 16:00 58 05/14/16 16:00 98.8 58 20 105/60 90 05/14/16 16:00 90 Nasal Cannula 80 05/14/16 12:20 94 High Flow Nasal Cannula 40.00 80 05/14/16 12:00 92 Nasal Cannula 80 05/14/16 12:00 98.1 73 20 110/60 89 05/14/16 12:00 73 Physical Exam GENERAL: This is an obese, well-developed female, awake and alert, SOB at rest , on face mask. SKIN: Cool and dry. No generalized rash, no ecchymosis, no embolic lesions noted. HEAD: Atraumatic. Normocephalic. No temporal or scalp tenderness. EYES: [place] conjunctivae, no petechia or subconjunctival hemorrhage. Pupils equal round and reactive. Extraocular motions intact. No scleral icterus. No injection or drainage. ENT: Nose without bleeding, or purulent drainage. Moist oral mucosa. Throat without erythema, or exudate. Uvula midline. Airway patent. NECK: Trachea midline. No JVD or lymphadenopathy. Supple, nontender, no meningeal signs. CARDIOVASCULAR: Regular rate and rhythm without murmurs, gallops, or rubs. Soft heart sounds. RESPIRATORY: Breath sounds equal bilaterally. No wheezes, or rhonchi heard. Has decreased BS at bases GASTROINTESTINAL: Abdomen soft, obese, non-tender, nondistended. Healed scars compatible with her surgical history. Bowel sounds are present and hypoactive. No guarding. No rebound. MUSCULOSKELETAL: Extremities without clubbing, cyanosis. She has brownish pigmentation in both legs. Has bilateral pitting edema. No joint tenderness. No calf tenderness. Negative Homans sign bilaterally. NEUROLOGICAL: Awake and alert. Cranial nerves II through XII intact. Motor and sensory grossly within normal limits. Five out of 5 muscle strength in all muscle groups. Normal speech. PSYCH: Appropriate affect, calm and cooperative LINE: PIV with no evidence of infection : Tavares cath in place, urine looks clear Laboratory Laboratory Tests Test 05/14/16 05/15/16 15:43 05:40 Total Creatine Kinase 22 Troponin I 0.03 White Blood Count 8.2 Red Blood Count 3.70 Hemoglobin 11.9 Hematocrit 36.7 Mean Corpuscular Volume 99.1 Mean Corpuscular Hemoglobin 32.2 Mean Corpuscular Hemoglobin 32.5 Concent Red Cell Distribution Width 15.9 Platelet Count 174 Mean Platelet Volume 9.7 Neutrophils (%) (Auto) 93.2 Lymphocytes (%) (Auto) 2.6 Monocytes (%) (Auto) 4.2 Eosinophils (%) (Auto) 0.0 Basophils (%) (Auto) 0.0 Neutrophils # (Auto) 7.7 Lymphocytes # (Auto) 0.2 Monocytes # (Auto) 0.3 Eosinophils # (Auto) 0.0 Basophils # (Auto) 0.0 CBC Comment DIFF FINAL Differential Comment Prothrombin Time 16.5 Prothromb Time International 1.5 Ratio Sodium Level 134 Potassium Level 4.8 Chloride Level 96 Carbon Dioxide Level 29.3 Anion Gap 9 Blood Urea Nitrogen 59 Creatinine 2.11 Estimat Glomerular Filtration 22 Rate Random Glucose 141 Calcium Level 8.0 Random Vancomycin Level 7.6 Date/Time Procedure Status Source Growth 05/14/16 10:50 Gram Stain - Final Resulted Sputum Expectorated Sputum 05/14/16 10:50 Sputum Culture Resulted Sputum Expectorated Sputum Pending 05/14/16 10:06 Aerobic Blood Culture Received Blood Peripheral Pending 05/14/16 10:06 Anaerobic Blood Culture Received Blood Peripheral Pending 05/12/16 23:55 Aerobic Blood Culture - Final Resulted Blood Peripheral Staph Sp Coagulase Negative 05/12/16 23:55 Anaerobic Blood Culture - Preliminary Resulted Staph Sp Coagulase Negative 05/12/16 23:20 Aerobic Blood Culture - Preliminary Resulted Blood Peripheral NO GROWTH IN 2 DAYS 05/12/16 23:20 Anaerobic Blood Culture - Preliminary Resulted Gram Positive Cocci Result Diagram: 05/15/16 0540 05/15/16 0540 Imaging RADIOLOGY STUDIES/FILMS REVIEWED Chest X-Ray 05/15/16 0000 Signed Impressions: Service Date/Time: Sunday, May 15, 2016 04:54 - CONCLUSION: 1. The previously noted infiltrate in the right upper lung has resolved. 2. Stable parenchymal consolidation the left lung base. Gerard Quick MD Chest X-Ray 05/12/161999 Signed Impressions: Service Date/Time: Thursday, May 12, 2016 20:13 - CONCLUSION: 1. Global cardiomegaly with bilateral airspace disease most consolidative in the left lung base and right upper lobe. Primary differential diagnosis includes pneumonia and mild edema. Cyrus Espinoza MD Assessment and Plan Assessment and Plan IMPRESSION Positive BC, first set with 2 different Coag Neg Staph, second set still pending - likely contaminants Respiratory failure, has bilateral basilar consolidation, ?effusion, possibly due to CHF, ?exac COPD - not really having any significant PNA symptoms COPD, O2 dependent S/P MVR 1990, with tissue valve, ? if with problems Obesity RECOMMENDATION Follow C/S Agree with echo Patient in Vanco and Cefepime Check legionella and pneumococcal Ag Add Zithromax Agree with CT chest Monitor progress I will adjust Abx once work-up is completed I will follow along with you Thank you for this consultation Discussed Condition With Explained plan to patient D/W Charleen Black MD May 15, 2016 11:27
[2016-05-15] MEDS: AZITHROMYCIN 250 MG TAB PO SCH (13:58)
[2016-05-15] MEDS: WARFARIN SOD 5 MG TAB PO SCH (16:39)
--- NOTE | 2016-05-15 17:31 | MB ---
cc: CAROL TOM DATE OF CONSULTATION 05/15/2016 HISTORY OF THE PRESENT ILLNESS Ms. Michaels is an 80-year-old white female with a prior history of congestive heart failure, previous mitral valve replacement for endocarditis in 1990 and regular follow up with Dr. Zaldivar for her heart problems. She presented on May 12 with a 4-6 week history of gradually progressive dyspnea culminating in significant shortness of breath the day of admission. She also had increasing edema, orthopnea, PND, had been sleeping upright most of the time. She really did not experience much cough, certainly no purulent sputum. She has had no hemoptysis. She is on chronic anticoagulation after the valve surgery but on presentation her INR was 1.1. On presentation she was felt to be in heart failure and possibly have underlying COPD and pneumonia so was started on broad-spectrum antibiotics. Initial cultures revealed a staph organism and infectious disease is being consulted because of the valve and previous history of endocarditis. Two subsequent blood cultures have been negative. Her pulmonary history is rather vague. She was a former smoker of one to two packs per day for about 15-20 years but quit smoking at 38 and has never been hospitalized specifically for an exacerbation of COPD. She is not followed by a tentmaker regularly and is on no bronchodilators at home. She does use oxygen at home but it sounds like that may have been related to a diagnosis of obstructive sleep apnea many years ago when she did not tolerate C-PAP at night and was prescribed oxygen. She is feeling much better since admission post diuresis with antibiotics. She has also been on bronchodilators and IV corticosteroids. The patient has a longstanding history of obesity. LABORATORY DATA Initial labs included an arterial blood gas with pH 7.36, pCO2 58, pO2 of 231 that was on BiPap. She clearly has a compensated respiratory acidosis with a carbon dioxide of 33.8 on presentation. She also has underlying renal insufficiency presented with a creatinine of 1.6. Estimated GFR of 31. PAST MEDICAL HISTORY In addition to that noted above she has had: 1. Chronic atrial fibrillation. 2. Diabetes. 3. Renal insufficiency. 4. Hypertension. 5. She has had a previous hysterectomy. 6. She is hypothyroid. 7. She has had a cholecystectomy. 8. Appendectomy. 9. And some type of rectal tumor many years ago at about 28 years of age. ALLERGIES BENZODIAZEPINES, CLINDAMYCIN, VALIUM. MEDICATIONS Reviewed in the EMR. REVIEW OF SYSTEMS Other than that noted above she has had no chest pain or hemoptysis. No fever. No night sweats. No abdominal complaints. No pain, nausea, vomiting or recent change in bowel habits. There has been no recent travel. She has no animals at home. She lives alone. PHYSICAL EXAMINATION GENERAL: An obese white female lying comfortably at rest on a partial non-rebreather mask. VITAL SIGNS: She is afebrile. Blood pressure is 127/67, her pulse is 53, respirations are 18 and saturation is 95%. HEENT: Sclerae anicteric. Mucous membranes are moist. NECK: Veins are not distended. CHEST: Somewhat diminished at the bases but she has no wheezes, no congestion. Soft systolic murmur is noted. ABDOMEN: Very large soft, nontender, chronic venous stasis changes in the legs but minimal pitting edema pretibial. IMAGING Chest x-ray reveals probable bilateral lower lobe pleural effusions, infiltrates cannot be excluded. Heart is enlarged. Echocardiogram reveals an EF of 35%. Upper lobes are clear. White count was 7400 on presentation, 8200 presently. She has been started on subcu heparin prophylactically and Coumadin was resumed. DISCUSSION Mrs. Michaels presents with respiratory insufficiency, hypercarbia that appears chronic whether this is related to COPD from a distant prior smoking history, obesity hypoventilation is not clear at this point. It appears as though she probably presented with an element of heart failure and her blood cultures have been positive. I am going to cut back on her steroids and continue p.r.n. aerosol treatments, wean her oxygen as able and a noncontrast CT has been ordered to see if she has basilar infiltrates or if these basilar densities are predominantly related to fluid. Further diagnostic and/or therapeutic range will depend on her ongoing clinical course and response to therapy. R. MD DELANEY Gomez/PATRICIA /12:29 PM /5:05 PM
--- NOTE | 2016-05-15 18:56 | EKG ---
Date Performed: 05/14/2016 Time Performed: 15:16:42 PTAGE: 80 years EKG: Atrial fibrillation with slow ventricular response Right axis deviation Right bundle branch block Lateral infarct - age undetermined Inferior ST-T changes may be due to myocardial ischemia Low QRS voltages in limb leads Compared to prior tracing no significant change Abnormal ECG PREVIOUS TRACING : 05/12/2016 20.11 DOCTOR: Bao Hudson Interpretating Date/Time 05/15/2016 18:55:46
--- NOTE | 2016-05-15 20:08 | EC ---
Study Study Date:05/15/2016 STUDY CONCLUSIONS SUMMARY - Left ventricle: The cavity size was mildly dilated. Wall thickness was increased in a pattern of mild LVH. Systolic function was moderately reduced. The estimated ejection fraction was 35%. Wall motion was normal; there were no regional wall motion abnormalities. - Aortic valve: Mildly calcified annulus. Trileaflet; mildly thickened, mildly calcified leaflets. Mild regurgitation. 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 - Left atrium: The atrium was mildly dilated. - Right ventricle: The cavity size was severely dilated. Wall thickness was normal. - Right atrium: The atrium was dilated. - Tricuspid valve: Wide-open regurgitation. If LV function is below 40, please consider prescribing an ACEI or ARB or document rationale for non-use. PROCEDURE DATA STUDY STATUS: Elective. Procedure: Transthoracic echocardiography. Image quality was good. Scanning was performed from the parasternal, apical, and subcostal acoustic windows. Study completion: The patient tolerated the procedure well. Transthoracic echocardiography. M-mode, complete 2D, complete spectral Doppler, and color Doppler. Weight: Weight: 294.4lb. Patient status: Inpatient. CARDIAC ANATOMY LEFT VENTRICLE: The cavity size was mildly dilated. Wall thickness was increased in a pattern of mild LVH. Systolic function was moderately reduced. The estimated ejection fraction was 35%. Wall motion was normal; there were no regional wall motion abnormalities. AORTIC VALVE: Mildly calcified annulus. Trileaflet; mildly thickened, mildly calcified leaflets. Doppler: Transvalvular velocity was within the normal range. There was no stenosis. Mild regurgitation. Valve area: 2.09cm^2(VTI). Valve area: 2.28cm^2 (Vmax). Mean gradient: 4mm Hg (S). AORTA: Aortic root: The aortic root was normal in size. MITRAL VALVE: At least moderate stenosis of mitral valve prosthesis. Doppler: No regurgitation. Valve area by pressure half-time: 0.71cm^2. Valve area by continuity equation (using LVOT flow): 0.5cm^2. Mean gradient: 13mm Hg (D). Peak gradient: 22mm Hg (D). LEFT ATRIUM: The atrium was mildly dilated. RIGHT VENTRICLE: The cavity size was severely dilated. Wall thickness was normal. PULMONIC VALVE: Doppler: Transvalvular velocity was within the normal range. There was no evidence for stenosis. No regurgitation. TRICUSPID VALVE: Structurally normal valve. Doppler: Transvalvular velocity was within the normal range. Wide-open regurgitation. PULMONARY ARTERY: The main pulmonary artery was normal-sized. Systolic pressure was within the normal range. RIGHT ATRIUM: The atrium was dilated. PERICARDIUM: There was no pericardial effusion. SYSTEMIC VEINS: Inferior vena cava: The vessel was normal in size. Patient weight: 294.4lb _Ejection fraction:_ 65-75% _Fractional shortening:_ 32% up to 5Kg 5-11.5Kg 11.6-22.9Kg 23-45Kg 45-57Kg Aortic Root 7-13 <17 13-22 17-27 17-27 LA diam 6-13 <23 24-38 33-47 37-40 RVID 10-17 7-15 7-15 7-18 8-17 LVIDd 12-22 <32 24-38 33-47 37-40 LVPW 2-4 3-6 5-7 6-8 7-8 IVS 2-4 3-6 5-7 6-8 7-8 BASIC MEASUREMENTS ADULT NORMAL Left ventricle LV internal dimension, ED, chordal level, 47.3 mm 43-52 PLAX LV internal dimension, ES, chordal level, 33.9 mm 23-38 PLAX Fractional shortening, chordal level, PLAX *28 % >29 LV posterior wall thickness, ED 9.87 mm IVS/LVPW ratio, ED 1.01 <1.3 Ventricular septum Septal thickness, ED 9.94 mm Aortic valve Leaflet separation 16 mm 15-26 Aorta Root diameter, ED 30 mm Left atrium Anterior-posterior dimension 48 mm BASIC MEASUREMENTS ADULT NORMAL Aortic valve Leaflet separation 16 mm 15-26 DOPPLER MEASUREMENTS ADULT NORMAL Aortic valve Peak velocity, S 143 cm/s Mean velocity, S 95.9 cm/s VTI, S 122 cm Mean gradient, S 4 mm Hg Valve area, VTI 2.09 cm^2 Valve area, Vmax 2.28 cm^2 Mitral valve Peak E-wave velocity 229 cm/s Peak A-wave velocity 230 cm/s Mean velocity, D 168 cm/s Deceleration time *637 ms 150-230 Pressure half-time 309 ms Mean gradient, D 13 mm Hg Peak gradient, D 22 mm Hg Peak E/A ratio 1 Valve area, pressure half-time 0.71 cm^2 Valve area, LVOT continuity 0.5 cm^2 Tricuspid valve Regurgitant peak velocity 169 cm/s Peak RV-RA gradient, S 11 mm Hg Pulmonic valve Peak velocity, S 61.7 cm/s LEGEND: Mean values are shown as u=mean value. Asterisk (*) cardona values outside specified normal range. Debbie Gonzalez [id number]
--- NOTE | 2016-05-15 22:40 | EKG ---
Date Performed: 05/12/2016 Time Performed: 20:11:36 PTAGE: 80 years EKG: ATRIAL FIBRILLATION INTRAVENTRICULAR CONDUCTION DELAY RIGHT VENTRICULAR HYPERTROPHY ABNORMA L ECG INTERPRETATION BASED ON A DEFAULT AGE OF 40 YEARS PREVIOUS TRACING : 12/17/2007 13.53 Compared to the previous tracing, now RBBB DOCTOR: Terrence Vanegas Interpretating Date/Time 05/15/2016 22:40:20
[2016-05-16] VITALS (27 sets, daily range): BP systolic 112–123; BP diastolic 58–76; PULSE 54–83; RESP 20–27; TEMP 97.5–98.6; O2SAT 91–95
[2016-05-16] MEDS: CEFEPIME INJ 1,000 MG in SODIUM CHLORIDE 0.9% INJ 100 ML IV SCH ×2 (05:21→13:45)
[2016-05-16] MEDS: HEPARIN SODIUM - SQ 10,000 UNITS/ML VIAL SQ SCH ×3 (05:22→21:33)
[2016-05-16] MEDS: LEVOTHYROXINE SODIUM 100 MCG TAB PO SCH (05:23)
[2016-05-16] MEDS: ACETAMINOPHEN/HYDROcodone 325 MG/5 MG TAB PO PRN ×3 (05:28→23:06)
[2016-05-16] MEDS: INSULIN ASPART SUPPLEMENTAL SCALE SQ SCH ×4 (05:28→21:38)
[2016-05-16 06:58] LABS: BASOPHIL % 0.1 % (0.0-2.0); HEMATOCRIT 38.1 % (35.0-46.0); HEMO FLAGS DIFF FINAL; LYMPH % 2.9 % (9.0-44.0); LYMPHOCYTE # 0.2 TH/MM3 (1.0-4.8); MEAN CELL VOLUME 97.8 FL (80.0-100.0); MEAN CORPUSCULAR HEMOGLOBIN 31.9 PG (27.0-34.0); MEAN CORPUSCULAR HGB CONC 32.7 % (32.0-36.0); PLATELET COUNT 166 TH/MM3 (150-450); RED CELL DISTRIBUTION WIDTH 15.6 % (11.6-17.2)
[2016-05-16 07:08] LABS: INTERNATIONAL NORMALIZED RATIO 1.6 RATIO; PROTHROMBIN TIME - PATIENT 17.5 SEC (9.8-11.6)
--- NOTE | 2016-05-16 07:17 | RADRPT ---
EXAM DATE/TIME: 05/16/2016 06:24 [place] COMPARISON: CHEST SINGLE AP, May 15, 2016, 4:54. INDICATIONS : Respiratory disease. MEDICAL HISTORY : Chronic obstructive pulmonary disease. SURGICAL HISTORY : CABG. ENCOUNTER: Subsequent ACUITY: 2 days PAIN SCORE: Non-responsive. LOCATION: Bilateral chest FINDINGS: A single view of the chest demonstrates moderate cardiomegaly. Moderate left pleural effusion. Bilate ral perihilar airspace disease and probable layering right pleural effusion. Status post median garrison otomy and heart valve replacement. The cardiomediastinal contours are unremarkable. Osseous structur es are intact. CONCLUSION: 1. Cardiomegaly with moderate left pleural effusion and probable small right pleural effusion. 2. Bilateral perihilar airspace disease, likely CHF. 3. Previous heart valve replacement. Sammy Fish MD on May 16, 2016 at 7:14 Board Certified Radiologist. This report was verified electronically.
[2016-05-16 07:25] LABS: ALKALINE PHOSPHATASE 40 U/L (45-117); ALT (GPT) 30 U/L (10-53); ANION GAP 10 MEQ/L (5-15); AST (GOT) 25 U/L (15-37); BICARBONATE 30.4 MEQ/L (21.0-32.0); BLOOD UREA NITROGEN 71 MG/DL (7-18); CHLORIDE 94 MEQ/L (98-107); GLOMERULAR FILTRATION RATE 22 ML/MIN (>89); POTASSIUM 4.6 MEQ/L (3.5-5.1); SODIUM (NA) 134 MEQ/L (136-145); TOTAL BILIRUBIN ADULT 0.7 MG/DL (0.2-1.0)
[2016-05-16] MEDS: CHLORHEXIDINE 0.12% (ORAL KIT) 15 ML CUP MT SCH ×2 (08:00→20:00)
[2016-05-16] MEDS ORDERED: methylPREDNISolone SOD SUCC 40 MG/1 ML VIAL IV PUSH SCH (09:00)
[2016-05-16] MEDS: ALLOPURINOL 100 MG TAB PO SCH (09:52)
[2016-05-16] MEDS: BUMETANIDE INJ 1 MG/4 ML VIAL IV PUSH SCH (09:52)
[2016-05-16] MEDS: AZITHROMYCIN 250 MG TAB PO SCH (09:52)
[2016-05-16] MEDS: SODIUM CHLORIDE 0.9% FLUSH 5 ML FLUSH IVF SCH ×2 (09:52→21:34)
[2016-05-16] MEDS: PANTOPRAZOLE SODIUM 40 MG VIAL IV SCH (09:53)
[2016-05-16] MEDS: CARVEDILOL 6.25 MG TAB PO SCH ×3 (09:53→21:33)
[2016-05-16] MEDS: SPIRONOLACTONE 25 MG TAB PO SCH (09:53)
[2016-05-16] MEDS: AMIODARONE 200 MG TAB PO SCH (09:53)
[2016-05-16] MEDS ORDERED: PNEUMOCOCCAL POLYVALENT INJ 25 MCG/0.5 ML SYR IM ONE (11:15)
--- NOTE | 2016-05-16 13:40 | HHI.PR ---
Subjective Remarks Follow up for respiratory failure, suspected pneumonia, GPC bacteremia. Ms. Michaels is currently on non-rebreather and feels her breathing is about the same as yesterday. She has not been able to tolerate nasal cannula. CT chest without contrast pending. No fever, chills. Objective Vitals Vital Signs Date Time Temp Pulse Resp B/P Pulse Ox O2 Delivery O2 Flow Rate FiO2 05/16/16 12:00 61 05/16/16 11:00 98.5 58 20 114/68 95 05/16/16 11:00 60 05/16/16 11:00 60 05/16/16 11:00 95 Partial Non-Rebreather 05/16/16 10:00 57 05/16/16 09:00 57 05/16/16 08:06 91 Partial Rebreather 15.00 05/16/16 08:00 56 05/16/16 07:00 91 Partial Non-Rebreather 05/16/16 07:00 57 05/16/16 07:00 57 05/16/16 07:00 98.6 62 20 112/76 91 05/16/16 06:00 56 05/16/16 05:14 59 05/16/16 04:00 58 05/16/16 03:00 60 05/16/16 03:00 57 05/16/16 03:00 92 Partial Non-Rebreather 05/16/16 03:00 97.8 61 27 113/73 92 05/16/16 02:00 62 05/16/16 01:00 58 05/16/16 00:00 58 05/15/16 23:00 97.6 56 24 113/55 93 05/15/16 23:00 57 05/15/16 23:00 57 05/15/16 23:00 93 Partial Non-Rebreather 05/15/16 22:00 55 05/15/16 21:20 93 Partial Rebreather 05/15/16 21:00 57 05/15/16 20:00 57 05/15/16 19:00 97.8 61 22 125/60 94 05/15/16 19:00 56 05/15/16 19:00 94 Partial Non-Rebreather 05/15/16 19:00 56 05/15/16 18:00 57 05/15/16 17:00 57 05/15/16 15:00 96 Partial Non-Rebreather 05/15/16 15:00 57 05/15/16 15:00 98.4 57 18 136/63 96 I/O 05/15/16 05/15/16 05/15/16 05/16/16 05/16/16 05/16/16 07:00 15:00 23:00 07:00 15:00 23:00 Intake Total 920 ml 1560 ml 343 ml Output Total 375 ml 400 ml 575 ml Balance 545 ml 1160 ml -232 ml Intake Oral 720 ml 960 ml 240 ml IV Total 200 ml 600 ml 103 ml Output Urine Total 375 ml 400 ml 575 ml # Bowel Movements 0 Result Diagram: 05/16/16 0553 05/16/16 0553 Imaging Last Impressions Chest X-Ray 05/16/16 0600 Signed Impressions: Service Date/Time: Monday, May 16, 2016 06:24 - CONCLUSION: 1. Cardiomegaly with moderate left pleural effusion and probable small right pleural effusion. 2. Bilateral perihilar airspace disease, likely CHF. 3. Previous heart valve replacement. Sammy Fish MD Objective Remarks GENERAL: AOX3, NAD. SKIN: Warm and dry. HEAD: Normocephalic. EYES: No scleral icterus. No injection or drainage. NECK: Supple, trachea midline. No JVD or lymphadenopathy. CARDIOVASCULAR: Regular rate and rhythm without murmurs, gallops, or rubs. RESPIRATORY: Breath sounds equal bilaterally. No accessory muscle use. Breath sounds diminished in the bibasilar space. GASTROINTESTINAL: Abdomen soft, non-tender, nondistended. MUSCULOSKELETAL: No cyanosis, or edema. BACK: Nontender without obvious deformity. No CVA tenderness. Procedures None. A/P Assessment and Plan Ms. Michaels is a pleasant 80 year old female with a history of COPD, CHF who was admitted to the ICU due to worsening shortness of breath. She required BiPAP. She had hypercapnic and hypoxic respiratory failure. She was also found to have GPC bacteremia. - Acute respiratory failure hypercapnic and hpoxic. - s/p BiPAP use. Use BiPAP PRN IPAP 19, EPAP 5. - Continue Solu-medrol. DuoNeb. - CT chest pending. Pulmonary is following. - Atrial fibrillation - Continue Amiodarone 200mg daily, Coreg 6.25mg BID. Continue Coumadin for anticoagulation - Check 2D echo to eval LV function. 2-D echo in 2007 showed EF 435-40% - GPC bacteremia - ID consulted. Continue Cefepime, Vancomycin and Azithromycin. - Hyperglycemia - blood glucose well controlled. Continue sliding scale insulin. - Skin fungal lesion - below left breast. - Will order Nystatin powder. - JASON - Creatinine 1.42 on admission to 2.15 on 05/16/2016. Full code. Heparin SQ. Jessica Ayala DO May 16, 2016 13:40
[2016-05-16] MEDS: WARFARIN SOD 5 MG TAB PO SCH (16:46)
--- NOTE | 2016-05-16 16:46 | HHI.IDPN ---
Subjective Subjective Remarks Notes reviewed Temps ok SOB, on PNRB mask Not diuresing very well Creatinine rising Echo with LVH, EF 35%, RV dilated, has mod stenosis of her MVR No new (+) BC One Bc with 2 different Coag Neg Staph Second BC Coag Neg no ID yet CT chest not done yet Antibiotics Vanco Cefepime Zithromax Lines PIV Past Medical History COPD, O2 dependent CHF Hypothyroidism History of arrhythmia Hypertension Renal insufficiency Lower extremity edema History of rectal cancer History of precancerous colonic polyp Past Surgical History MVR for endocarditis in 1990 Tonsillectomy Appendectomy Hysterectomy Partial colectomy for precancerous polyp Transanal resection of rectal cancer Exploratory laparotomy, lysis of adhesion, cholecystectomy, and repair of ventral hernia back in 2007 Allergies: Coded Allergies: Benzodiazepines (Verified Allergy, Severe, RAPID HEART BEAT, 05/12/16) Valium (Verified Allergy, Severe, Anxiety, 05/12/16) Clindamycin (Verified Adverse Reaction, Intermediate, chest pain, 05/12/16) Objective . Vital Signs Date Time Temp Pulse Resp B/P Pulse Ox O2 Delivery O2 Flow Rate FiO2 05/16/16 15:00 97.5 57 20 121/62 94 05/16/16 15:00 57 05/16/16 15:00 94 Partial Non-Rebreather 05/16/16 15:00 55 05/16/16 14:00 62 05/16/16 13:00 63 05/16/16 12:00 61 05/16/16 11:00 98.5 58 20 114/68 95 05/16/16 11:00 60 05/16/16 11:00 60 05/16/16 11:00 95 Partial Non-Rebreather 05/16/16 10:00 57 05/16/16 09:00 57 05/16/16 08:06 91 Partial Rebreather 15.00 05/16/16 08:00 56 05/16/16 07:00 91 Partial Non-Rebreather 05/16/16 07:00 57 05/16/16 07:00 57 05/16/16 07:00 98.6 62 20 112/76 91 05/16/16 06:00 56 05/16/16 05:14 59 05/16/16 04:00 58 05/16/16 03:00 60 05/16/16 03:00 57 05/16/16 03:00 92 Partial Non-Rebreather 05/16/16 03:00 97.8 61 27 113/73 92 05/16/16 02:00 62 05/16/16 01:00 58 05/16/16 00:00 58 05/15/16 23:00 97.6 56 24 113/55 93 05/15/16 23:00 57 05/15/16 23:00 57 05/15/16 23:00 93 Partial Non-Rebreather 05/15/16 22:00 55 05/15/16 21:20 93 Partial Rebreather 05/15/16 21:00 57 05/15/16 20:00 57 05/15/16 19:00 97.8 61 22 125/60 94 05/15/16 19:00 56 05/15/16 19:00 94 Partial Non-Rebreather 05/15/16 19:00 56 05/15/16 18:00 57 05/15/16 17:00 57 05/15/16 05/15/16 05/16/16 15:00 23:00 07:00 Intake Total 1560 ml 343 ml Output Total 400 ml 575 ml Balance 1160 ml -232 ml Intake Oral 960 ml 240 ml IV Total 600 ml 103 ml Output Urine Total 400 ml 575 ml . Laboratory Tests Test 05/15/16 05/16/16 05:40 05:53 White Blood Count 8.2 TH/MM3 8.0 TH/MM3 Red Blood Count 3.70 MIL/MM3 3.90 MIL/MM3 Hemoglobin 11.9 GM/DL 12.5 GM/DL Hematocrit 36.7 % 38.1 % Mean Corpuscular Volume 99.1 FL 97.8 FL Mean Corpuscular Hemoglobin 32.2 PG 31.9 PG Mean Corpuscular Hemoglobin 32.5 % 32.7 % Concent Red Cell Distribution Width 15.9 % 15.6 % Platelet Count 174 TH/MM3 166 TH/MM3 Mean Platelet Volume 9.7 FL 10.1 FL Neutrophils (%) (Auto) 93.2 % 87.0 % Lymphocytes (%) (Auto) 2.6 % 2.9 % Monocytes (%) (Auto) 4.2 % 10.0 % Eosinophils (%) (Auto) 0.0 % 0.0 % Basophils (%) (Auto) 0.0 % 0.1 % Neutrophils # (Auto) 7.7 TH/MM3 7.0 TH/MM3 Lymphocytes # (Auto) 0.2 TH/MM3 0.2 TH/MM3 Monocytes # (Auto) 0.3 TH/MM3 0.8 TH/MM3 Eosinophils # (Auto) 0.0 TH/MM3 0.0 TH/MM3 Basophils # (Auto) 0.0 TH/MM3 0.0 TH/MM3 CBC Comment DIFF FINAL DIFF FINAL Differential Comment Laboratory Tests Test 05/15/16 05/16/16 05:40 05:53 Sodium Level 134 MEQ/L 134 MEQ/L Potassium Level 4.8 MEQ/L 4.6 MEQ/L Chloride Level 96 MEQ/L 94 MEQ/L Carbon Dioxide Level 29.3 MEQ/L 30.4 MEQ/L Anion Gap 9 MEQ/L 10 MEQ/L Blood Urea Nitrogen 59 MG/DL 71 MG/DL Creatinine 2.11 MG/DL 2.15 MG/DL Estimat Glomerular Filtration 22 ML/MIN 22 ML/MIN Rate Random Glucose 141 MG/DL 132 MG/DL Calcium Level 8.0 MG/DL 8.0 MG/DL Total Bilirubin 0.7 MG/DL Aspartate Amino Transf 25 U/L (AST/SGOT) Alanine Aminotransferase 30 U/L (ALT/SGPT) Alkaline Phosphatase 40 U/L Total Protein 6.5 GM/DL Albumin 3.1 GM/DL Microbiology Date/Time Procedure Status Source Growth 05/14/16 09:50 Aerobic Blood Culture - Preliminary Resulted Blood Peripheral NO GROWTH IN 2 DAYS 05/14/16 09:50 Anaerobic Blood Culture - Preliminary Resulted Blood Peripheral NO GROWTH IN 2 DAYS 05/14/16 10:06 Aerobic Blood Culture - Preliminary Resulted Blood Peripheral NO GROWTH IN 2 DAYS 05/14/16 10:06 Anaerobic Blood Culture - Preliminary Resulted Blood Peripheral NO GROWTH IN 2 DAYS 05/14/16 10:50 Gram Stain - Final Complete Sputum Expectorated Sputum 05/14/16 10:50 Sputum Culture - Final Complete Sputum Expectorated Sputum LIGHT GROWTH NORMAL RESPIRATORY FRENCH 05/15/16 14:30 Legionella Antigen - Final Complete Urine Catheterized Urine PRESUMPTIVE NEGATIVE FOR LEGIONELLA P... 05/15/16 14:30 Streptococcus pneumoniae Antigen (M - Final Complete Urine Catheterized Urine PRESUMPTIVE NEGATIVE FOR STREPTOCOCCU... Imaging Chest X-Ray 05/16/16 0600 Signed Impressions: Service Date/Time: Monday, May 16, 2016 06:24 - CONCLUSION: 1. Cardiomegaly with moderate left pleural effusion and probable small right pleural effusion. 2. Bilateral perihilar airspace disease, likely CHF. 3. Previous heart valve replacement. Sammy Fish MD Chest X-Ray 05/15/16 0000 Signed Impressions: Service Date/Time: Sunday, May 15, 2016 04:54 - CONCLUSION: 1. The previously noted infiltrate in the right upper lung has resolved. 2. Stable parenchymal consolidation the left lung base. Gerard Quick MD Physical Exam GENERAL: Obese female, awakens easily, get SOB easily on PNRB mask. SKIN: Cool and dry. No generalized rash HEENT: [place] conjunctivae, no petechia or subconjunctival hemorrhage. No scleral icterus. Moist oral mucosa. Throat without erythema, or exudate. NECK: Trachea midline. No JVD or lymphadenopathy. Supple, nontender, no meningeal signs. CARDIOVASCULAR: Regular rate and rhythm without murmurs, gallops, or rubs. Soft heart sounds. RESPIRATORY: Breath sounds equal bilaterally. No wheezes, or rhonchi heard. Has decreased BS at bases GASTROINTESTINAL: Abdomen soft, obese, non-tender, nondistended. Healed scars compatible with her surgical history. Bowel sounds are present and hypoactive. No guarding. No rebound. MUSCULOSKELETAL: Extremities without clubbing, cyanosis. She has brownish pigmentation in both legs. Has bilateral pitting edema, looks slightly better. No calf tenderness. NEUROLOGICAL: Non-focal PSYCH: Appropriate affect, calm and cooperative LINE: PIV with no evidence of infection : Tavares cath in place, urine looks clear Assessment & Plan Remarks IMPRESSION Positive BC, first set with 2 different Coag Neg Staph, second set with Coag Neg Staph ID pending - likely contaminants Respiratory failure, has bilateral basilar consolidation, ?effusion, possibly due to CHF, ?exac COPD - not really having any significant PNA symptoms COPD, O2 dependent S/P MVR 1990, with tissue valve, has moderate stenosis of tissue valve Renal insufficiency, worsening Obesity RECOMMENDATION Follow C/S Continue Cefepime Continue Zithromax Hold further Vanco Monitor progress Await CT chest Charleen Echols MD May 16, 2016 16:46
[2016-05-16] MEDS: NYSTATIN 100,000 U/GM PWD 15 GM BTL TOPICAL SCH ×2 (16:47→21:34)
[2016-05-17] VITALS (26 sets, daily range): BP systolic 118–155; BP diastolic 59–85; PULSE 52–102; RESP 20–30; TEMP 97.2–98.1; O2SAT 89–96
[2016-05-17] MEDS: CHLORHEXIDINE GLUCONATE 2 % 1 PACK (2 CLOTHS) TOP SCH (04:00)
[2016-05-17 06:41] LABS: INTERNATIONAL NORMALIZED RATIO 1.7 RATIO; PROTHROMBIN TIME - PATIENT 18.7 SEC (9.8-11.6)
[2016-05-17] MEDS: HEPARIN SODIUM - SQ 10,000 UNITS/ML VIAL SQ SCH ×3 (06:52→21:20)
[2016-05-17] MEDS: LEVOTHYROXINE SODIUM 100 MCG TAB PO SCH (06:52)
[2016-05-17] MEDS: NYSTATIN 100,000 U/GM PWD 15 GM BTL TOPICAL SCH ×3 (06:53→21:20)
[2016-05-17] MEDS: INSULIN ASPART SUPPLEMENTAL SCALE SQ SCH ×4 (06:53→21:00)
[2016-05-17] MEDS: CHLORHEXIDINE 0.12% (ORAL KIT) 15 ML CUP MT SCH ×2 (08:00→20:00)
[2016-05-17] MEDS: PANTOPRAZOLE SODIUM 40 MG VIAL IV SCH (09:51)
[2016-05-17] MEDS: AMIODARONE 200 MG TAB PO SCH (09:52)
[2016-05-17] MEDS: AZITHROMYCIN 250 MG TAB PO SCH (09:52)
[2016-05-17] MEDS: CARVEDILOL 6.25 MG TAB PO SCH ×2 (09:52→21:00)
[2016-05-17] MEDS: BUMETANIDE INJ 1 MG/4 ML VIAL IV PUSH SCH (09:52)
[2016-05-17] MEDS: SPIRONOLACTONE 25 MG TAB PO SCH (09:52)
[2016-05-17] MEDS: ALLOPURINOL 100 MG TAB PO SCH (09:52)
[2016-05-17] MEDS: SODIUM CHLORIDE 0.9% FLUSH 5 ML FLUSH IVF SCH ×2 (09:53→21:19)
--- NOTE | 2016-05-17 10:41 | HHI.IDPN ---
Subjective Subjective Remarks Notes reviewed Temps ok SOB, on PNRB mask Had better diuresis overnight Creatinine rising Echo with LVH, EF 35%, RV dilated, has mod stenosis of her MVR No new (+) BC One Bc with 2 different Coag Neg Staph Second BC Coag Neg vs anaerobic GPC, more info tomorrow Cardiology consult ordered Echo 2011 no mitral stenosis seen Antibiotics Cefepime Zithromax Lines PIV Past Medical History COPD, O2 dependent CHF Hypothyroidism History of arrhythmia Hypertension Renal insufficiency Lower extremity edema History of rectal cancer History of precancerous colonic polyp Past Surgical History MVR for endocarditis in 1990 Tonsillectomy Appendectomy Hysterectomy Partial colectomy for precancerous polyp Transanal resection of rectal cancer Exploratory laparotomy, lysis of adhesion, cholecystectomy, and repair of ventral hernia back in 2007 Allergies: Coded Allergies: Benzodiazepines (Verified Allergy, Severe, RAPID HEART BEAT, 05/12/16) Valium (Verified Allergy, Severe, Anxiety, 05/12/16) Clindamycin (Verified Adverse Reaction, Intermediate, chest pain, 05/12/16) Objective . Vital Signs Date Time Temp Pulse Resp B/P Pulse Ox O2 Delivery O2 Flow Rate FiO2 05/17/16 08:35 89 Partial Rebreather 15.00 05/17/16 07:00 98.1 55 28 128/70 93 05/17/16 06:00 54 05/17/16 05:00 54 05/17/16 04:00 57 05/17/16 03:00 92 Partial Non-Rebreather 15.00 40 05/17/16 03:00 97.8 56 20 128/59 92 05/17/16 03:00 55 05/17/16 02:00 54 05/17/16 01:00 56 05/17/16 00:00 56 05/16/16 23:00 92 Nasal Cannula 6.00 05/16/16 23:00 97.9 59 22 123/69 92 05/16/16 23:00 57 05/16/16 22:10 92 Nasal Cannula 5.00 05/16/16 22:00 56 05/16/16 22:00 55 05/16/16 21:00 55 05/16/16 21:00 55 05/16/16 20:00 59 05/16/16 20:00 59 05/16/16 19:27 97.7 54 23 119/58 94 05/16/16 19:27 54 05/16/16 19:00 54 05/16/16 19:00 94 Partial Non-Rebreather 05/16/16 18:00 56 05/16/16 17:00 54 05/16/16 16:00 83 05/16/16 15:00 97.5 57 20 121/62 94 05/16/16 15:00 57 05/16/16 15:00 94 Partial Non-Rebreather 05/16/16 15:00 55 05/16/16 14:00 62 05/16/16 13:00 63 05/16/16 12:00 61 05/16/16 11:00 98.5 58 20 114/68 95 05/16/16 11:00 60 05/16/16 11:00 60 05/16/16 11:00 95 Partial Non-Rebreather 05/16/16 05/16/16 05/17/16 15:00 23:00 07:00 Intake Total 1160 ml 720 ml Output Total 550 ml 475 ml Balance 610 ml 245 ml Intake Oral 960 ml 720 ml IV Total 200 ml Output Urine Total 550 ml 475 ml # Bowel Movements 1 1 . Laboratory Tests Test 05/16/16 05:53 White Blood Count 8.0 TH/MM3 Red Blood Count 3.90 MIL/MM3 Hemoglobin 12.5 GM/DL Hematocrit 38.1 % Mean Corpuscular Volume 97.8 FL Mean Corpuscular Hemoglobin 31.9 PG Mean Corpuscular Hemoglobin 32.7 % Concent Red Cell Distribution Width 15.6 % Platelet Count 166 TH/MM3 Mean Platelet Volume 10.1 FL Neutrophils (%) (Auto) 87.0 % Lymphocytes (%) (Auto) 2.9 % Monocytes (%) (Auto) 10.0 % Eosinophils (%) (Auto) 0.0 % Basophils (%) (Auto) 0.1 % Neutrophils # (Auto) 7.0 TH/MM3 Lymphocytes # (Auto) 0.2 TH/MM3 Monocytes # (Auto) 0.8 TH/MM3 Eosinophils # (Auto) 0.0 TH/MM3 Basophils # (Auto) 0.0 TH/MM3 CBC Comment DIFF FINAL Differential Comment Laboratory Tests Test 05/16/16 05:53 Sodium Level 134 MEQ/L Potassium Level 4.6 MEQ/L Chloride Level 94 MEQ/L Carbon Dioxide Level 30.4 MEQ/L Anion Gap 10 MEQ/L Blood Urea Nitrogen 71 MG/DL Creatinine 2.15 MG/DL Estimat Glomerular Filtration 22 ML/MIN Rate Random Glucose 132 MG/DL Calcium Level 8.0 MG/DL Total Bilirubin 0.7 MG/DL Aspartate Amino Transf 25 U/L (AST/SGOT) Alanine Aminotransferase 30 U/L (ALT/SGPT) Alkaline Phosphatase 40 U/L Total Protein 6.5 GM/DL Albumin 3.1 GM/DL Microbiology Date/Time Procedure Status Source Growth 05/14/16 10:50 Gram Stain - Final Complete Sputum Expectorated Sputum 05/14/16 10:50 Sputum Culture - Final Complete Sputum Expectorated Sputum LIGHT GROWTH NORMAL RESPIRATORY FRENCH 05/15/16 14:30 Legionella Antigen - Final Complete Urine Catheterized Urine PRESUMPTIVE NEGATIVE FOR LEGIONELLA P... 05/15/16 14:30 Streptococcus pneumoniae Antigen (M - Final Complete Urine Catheterized Urine PRESUMPTIVE NEGATIVE FOR STREPTOCOCCU... Imaging Chest X-Ray 05/16/16 0600 Signed Impressions: Service Date/Time: Monday, May 16, 2016 06:24 - CONCLUSION: 1. Cardiomegaly with moderate left pleural effusion and probable small right pleural effusion. 2. Bilateral perihilar airspace disease, likely CHF. 3. Previous heart valve replacement. Sammy Fish MD Chest X-Ray 05/15/16 0000 Signed Impressions: Service Date/Time: Sunday, May 15, 2016 04:54 - CONCLUSION: 1. The previously noted infiltrate in the right upper lung has resolved. 2. Stable parenchymal consolidation the left lung base. Gerard Quick MD Physical Exam GENERAL: Awake, SOB at rest, on PNRB SKIN: Cool and dry. No generalized rash HEENT: [place] conjunctivae, no petechia or subconjunctival hemorrhage. No scleral icterus. Moist oral mucosa. NECK: Supple, nontender, no meningeal signs. CARDIOVASCULAR: Regular rate and rhythm without murmurs, gallops, or rubs. Soft heart sounds. RESPIRATORY: Breath sounds equal bilaterally. No wheezes, or rhonchi heard. Has decreased BS at bases GASTROINTESTINAL: Abdomen soft, obese, non-tender, nondistended. Healed scars compatible with her surgical history. Bowel sounds are present and hypoactive. No guarding. No rebound. MUSCULOSKELETAL: Extremities without clubbing, cyanosis. She has brownish pigmentation in both legs. Has bilateral pitting edema, looks slightly better. No calf tenderness. NEUROLOGICAL: Non-focal PSYCH: Appropriate affect, calm and cooperative LINE: PIV with no evidence of infection : Tavares cath in place, urine looks clear Assessment & Plan Remarks IMPRESSION Positive BC, first set with 2 different Coag Neg Staph, second set with Coag Neg Staph vs anaerobic GPC - likely contaminants Respiratory failure, has bilateral basilar consolidation, ?effusion, possibly due to CHF, ?exac COPD - not really having any significant PNA symptoms COPD, O2 dependent S/P MVR 1990, with tissue valve, has moderate stenosis of tissue valve Renal insufficiency, worsening Obesity RECOMMENDATION Follow C/S Continue Cefepime Continue Zithromax Monitor progress Cardiology to Charleen Arauz MD May 17, 2016 10:41
[2016-05-17] MEDS: CEFEPIME INJ 1,000 MG in SODIUM CHLORIDE 0.9% INJ 100 ML IV SCH (13:21)
--- NOTE | 2016-05-17 14:29 | HHI.PR ---
Subjective Remarks Follow up for respiratory failure, suspected pneumonia, GPC bacteremia. Ms. Michaels remains on non-rebreather mask and does not report much improvements of her symptoms. Objective Vitals Vital Signs Date Time Temp Pulse Resp B/P Pulse Ox O2 Delivery O2 Flow Rate FiO2 05/17/16 08:35 89 Partial Rebreather 15.00 05/17/16 07:00 98.1 55 28 128/70 93 05/17/16 06:00 54 05/17/16 05:00 54 05/17/16 04:00 57 05/17/16 03:00 92 Partial Non-Rebreather 15.00 40 05/17/16 03:00 97.8 56 20 128/59 92 05/17/16 03:00 55 05/17/16 02:00 54 05/17/16 01:00 56 05/17/16 00:00 56 05/16/16 23:00 92 Nasal Cannula 6.00 05/16/16 23:00 97.9 59 22 123/69 92 05/16/16 23:00 57 05/16/16 22:10 92 Nasal Cannula 5.00 05/16/16 22:00 56 05/16/16 22:00 55 05/16/16 21:00 55 05/16/16 21:00 55 05/16/16 20:00 59 05/16/16 20:00 59 05/16/16 19:27 97.7 54 23 119/58 94 05/16/16 19:27 54 05/16/16 19:00 54 05/16/16 19:00 94 Partial Non-Rebreather 05/16/16 18:00 56 05/16/16 17:00 54 05/16/16 16:00 83 05/16/16 15:00 97.5 57 20 121/62 94 05/16/16 15:00 57 05/16/16 15:00 94 Partial Non-Rebreather 05/16/16 15:00 55 I/O 05/16/16 05/16/16 05/16/16 05/17/16 05/17/16 05/17/16 07:00 15:00 23:00 07:00 15:00 23:00 Intake Total 343 ml 1160 ml 720 ml Output Total 575 ml 550 ml 475 ml Balance -232 ml 610 ml 245 ml Intake Oral 240 ml 960 ml 720 ml IV Total 103 ml 200 ml Output Urine Total 575 ml 550 ml 475 ml # Bowel Movements 1 1 Result Diagram: 05/16/16 0553 05/16/16 0553 Imaging Last Impressions Chest X-Ray 05/16/16 0600 Signed Impressions: Service Date/Time: Monday, May 16, 2016 06:24 - CONCLUSION: 1. Cardiomegaly with moderate left pleural effusion and probable small right pleural effusion. 2. Bilateral perihilar airspace disease, likely CHF. 3. Previous heart valve replacement. Sammy Fish MD Objective Remarks GENERAL: AOX3, NAD. SKIN: Warm and dry. HEAD: Normocephalic. EYES: No scleral icterus. No injection or drainage. NECK: Supple, trachea midline. No JVD or lymphadenopathy. CARDIOVASCULAR: Regular rate and rhythm without murmurs, gallops, or rubs. RESPIRATORY: Breath sounds equal bilaterally. No accessory muscle use. Breath sounds diminished in the bibasilar space. GASTROINTESTINAL: Abdomen soft, non-tender, nondistended. MUSCULOSKELETAL: No cyanosis, or edema. BACK: Nontender without obvious deformity. No CVA tenderness. Procedures None. A/P Assessment and Plan Ms. Michaels is a pleasant 80 year old female with a history of COPD, CHF who was admitted to the ICU due to worsening shortness of breath. She required BiPAP. She had hypercapnic and hypoxic respiratory failure. She was also found to have GPC bacteremia. - Acute respiratory failure hypercapnic and hpoxic. - s/p BiPAP use. Use BiPAP PRN IPAP 19, EPAP 5. - Continue Solu-medrol. DuoNeb. - CT chest pending. Pulmonary is following. - Atrial fibrillation - Systolic congestive heart failure - Continue Amiodarone 200mg daily, Coreg 6.25mg BID. Continue Coumadin for anticoagulation - Echo --> EF 35%. - Continue Bumex IV 1mg Qday. - GPC bacteremia - ID consulted. Continue Cefepime, Azithromycin. - Hyperglycemia - blood glucose well controlled. Continue sliding scale insulin. - Skin fungal lesion - below left breast. - Continue Nystatin powder. - JASON - Creatinine 1.42 on admission to 2.15 on 05/16/2016. Full code. Heparin SQ. Warfarin INR 1.7. Jessica Ayala DO May 17, 2016 14:29
[2016-05-17] MEDS: ACETAMINOPHEN/HYDROcodone 325 MG/5 MG TAB PO PRN (17:49)
[2016-05-17] MEDS: WARFARIN SOD 5 MG TAB PO SCH (17:49)
[2016-05-18] VITALS (30 sets, daily range): BP systolic 118–144; BP diastolic 61–71; PULSE 55–61; RESP 22–24; TEMP 96–97.5; O2SAT 93–97
[2016-05-18] MEDS: CHLORHEXIDINE GLUCONATE 2 % 1 PACK (2 CLOTHS) TOP SCH (04:00)
[2016-05-18] MEDS: LEVOTHYROXINE SODIUM 100 MCG TAB PO SCH (05:57)
[2016-05-18] MEDS: INSULIN ASPART SUPPLEMENTAL SCALE SQ SCH ×4 (05:57→21:00)
[2016-05-18] MEDS: NYSTATIN 100,000 U/GM PWD 15 GM BTL TOPICAL SCH ×3 (05:57→21:18)
[2016-05-18] MEDS: HEPARIN SODIUM - SQ 10,000 UNITS/ML VIAL SQ SCH ×3 (05:57→21:18)
[2016-05-18 06:35] LABS: AUTOMATED NEUTROPHIL # 7.1 TH/MM3 (1.8-7.7); BASOPHIL % 0.2 % (0.0-2.0); EOSINOPHIL # 0.1 TH/MM3 (0-0.4); EOSINOPHIL % 1.2 % (0.0-4.0); HEMATOCRIT 40.3 % (35.0-46.0); HEMO FLAGS DIFF FINAL; LYMPH % 4.4 % (9.0-44.0); LYMPHOCYTE # 0.4 TH/MM3 (1.0-4.8); MEAN CELL VOLUME 98.7 FL (80.0-100.0); MEAN CORPUSCULAR HEMOGLOBIN 32.5 PG (27.0-34.0); MONO % 13.2 % (0.0-8.0); PLATELET COUNT 146 TH/MM3 (150-450); RED BLOOD COUNT 4.08 MIL/MM3 (4.00-5.30); RED CELL DISTRIBUTION WIDTH 15.9 % (11.6-17.2); WHITE BLOOD COUNT 8.8 TH/MM3 (4.0-11.0)
[2016-05-18 06:40] LABS: INTERNATIONAL NORMALIZED RATIO 1.8 RATIO; PROTHROMBIN TIME - PATIENT 20.4 SEC (9.8-11.6)
[2016-05-18 06:46] LABS: BICARBONATE 32.5 MEQ/L (21.0-32.0); POTASSIUM 4.3 MEQ/L (3.5-5.1)
[2016-05-18] MEDS: CHLORHEXIDINE 0.12% (ORAL KIT) 15 ML CUP MT SCH ×2 (08:00→20:00)
[2016-05-18] MEDS: AZITHROMYCIN 250 MG TAB PO SCH (08:28)
[2016-05-18] MEDS: ACETAMINOPHEN/HYDROcodone 325 MG/5 MG TAB PO PRN ×3 (08:28→23:07)
[2016-05-18] MEDS: ALLOPURINOL 100 MG TAB PO SCH (08:28)
[2016-05-18] MEDS: SPIRONOLACTONE 25 MG TAB PO SCH (08:28)
[2016-05-18] MEDS: AMIODARONE 200 MG TAB PO SCH (08:28)
[2016-05-18] MEDS: BUMETANIDE INJ 1 MG/4 ML VIAL IV PUSH SCH (08:29)
[2016-05-18] MEDS: PANTOPRAZOLE SODIUM 40 MG VIAL IV SCH (08:29)
[2016-05-18] MEDS: CARVEDILOL 6.25 MG TAB PO SCH ×2 (08:29→21:17)
[2016-05-18] MEDS: SODIUM CHLORIDE 0.9% FLUSH 5 ML FLUSH IVF SCH ×2 (08:35→21:18)
[2016-05-18] MEDS: CEFEPIME INJ 1,000 MG in SODIUM CHLORIDE 0.9% INJ 100 ML IV SCH (13:15)
--- NOTE | 2016-05-18 14:55 | HHI.IDPN ---
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 No new (+) BC One Bc with 2 different Coag Neg Staph Second BC anaerobic GPC Cardiology consult ordered Echo 2011 no mitral stenosis seen Antibiotics Cefepime Zithromax Lines PIV Past Medical History COPD, O2 dependent CHF Hypothyroidism History of arrhythmia Hypertension Renal insufficiency Lower extremity edema History of rectal cancer History of precancerous colonic polyp Past Surgical History MVR for endocarditis in 1990 Tonsillectomy Appendectomy Hysterectomy Partial colectomy for precancerous polyp Transanal resection of rectal cancer Exploratory laparotomy, lysis of adhesion, cholecystectomy, and repair of ventral hernia back in 2007 Allergies: Coded Allergies: Benzodiazepines (Verified Allergy, Severe, RAPID HEART BEAT, 05/12/16) Valium (Verified Allergy, Severe, Anxiety, 05/12/16) Clindamycin (Verified Adverse Reaction, Intermediate, chest pain, 05/12/16) Objective . Vital Signs Date Time Temp Pulse Resp B/P Pulse Ox O2 Delivery O2 Flow Rate FiO2 05/18/16 11:50 94 Partial Rebreather 12.00 05/18/16 11:41 94 Nasal Cannula 6.00 05/18/16 11:41 97.3 59 22 118/67 93 05/18/16 10:15 95 Nasal Cannula 6.00 05/18/16 08:14 95 Partial Non-Rebreather 10.00 05/18/16 08:14 97.4 55 24 125/71 97 05/18/16 06:00 60 05/18/16 05:00 57 05/18/16 04:03 59 05/18/16 03:00 55 05/18/16 03:00 97 Partial Non-Rebreather 15.00 40 05/18/16 03:00 97.3 55 24 139/71 94 05/18/16 02:00 58 05/18/16 01:00 55 05/18/16 00:28 57 05/17/16 23:00 55 05/17/16 23:00 97.5 56 26 121/63 96 05/17/16 23:00 96 Partial Non-Rebreather 15.00 40 05/17/16 22:00 57 05/17/16 21:46 93 Partial Rebreather 05/17/16 21:00 55 05/17/16 20:00 52 05/17/16 19:00 96 Partial Non-Rebreather 15.00 40 05/17/16 19:00 56 05/17/16 19:00 97.2 54 24 120/60 96 05/17/16 18:00 56 05/17/16 17:00 54 05/17/16 16:00 58 05/17/16 15:00 91 Partial Non-Rebreather 15.00 40 05/17/16 15:00 58 05/17/16 15:00 97.7 57 20 118/72 91 05/17/16 05/17/16 05/18/16 15:00 23:00 07:00 Intake Total 700 ml 240 ml Output Total 1050 ml 415 ml Balance -350 ml -175 ml Intake Oral 600 ml 240 ml IV Total 100 ml Output Urine Total 1050 ml 415 ml # Bowel Movements 1 0 . Laboratory Tests Test 05/18/16 05:45 White Blood Count 8.8 TH/MM3 Red Blood Count 4.08 MIL/MM3 Hemoglobin 13.3 GM/DL Hematocrit 40.3 % Mean Corpuscular Volume 98.7 FL Mean Corpuscular Hemoglobin 32.5 PG Mean Corpuscular Hemoglobin 33.0 % Concent Red Cell Distribution Width 15.9 % Platelet Count 146 TH/MM3 Mean Platelet Volume 10.0 FL Neutrophils (%) (Auto) 81.0 % Lymphocytes (%) (Auto) 4.4 % Monocytes (%) (Auto) 13.2 % Eosinophils (%) (Auto) 1.2 % Basophils (%) (Auto) 0.2 % Neutrophils # (Auto) 7.1 TH/MM3 Lymphocytes # (Auto) 0.4 TH/MM3 Monocytes # (Auto) 1.2 TH/MM3 Eosinophils # (Auto) 0.1 TH/MM3 Basophils # (Auto) 0.0 TH/MM3 CBC Comment DIFF FINAL Differential Comment Laboratory Tests Test 05/18/16 05:45 Sodium Level 138 MEQ/L Potassium Level 4.3 MEQ/L Chloride Level 97 MEQ/L Carbon Dioxide Level 32.5 MEQ/L Anion Gap 9 MEQ/L Blood Urea Nitrogen 79 MG/DL Creatinine 2.17 MG/DL Estimat Glomerular Filtration 22 ML/MIN Rate Random Glucose 119 MG/DL Calcium Level 8.2 MG/DL Imaging Chest X-Ray 05/16/16 0600 Signed Impressions: Service Date/Time: Monday, May 16, 2016 06:24 - CONCLUSION: 1. Cardiomegaly with moderate left pleural effusion and probable small right pleural effusion. 2. Bilateral perihilar airspace disease, likely CHF. 3. Previous heart valve replacement. Sammy Fish MD Chest X-Ray 05/15/16 0000 Signed Impressions: Service Date/Time: Sunday, May 15, 2016 04:54 - CONCLUSION: 1. The previously noted infiltrate in the right upper lung has resolved. 2. Stable parenchymal consolidation the left lung base. Gerard Quick MD Physical Exam GENERAL: Awake, looks more comfortable at rest, on nasal O2 SKIN: Cool and dry. No generalized rash HEENT: [place] conjunctivae, no petechia or subconjunctival hemorrhage. No scleral icterus. Moist oral mucosa. NECK: Supple, nontender, no meningeal signs. CARDIOVASCULAR: Regular rate and rhythm without murmurs, gallops, or rubs. Soft heart sounds. RESPIRATORY: Breath sounds equal bilaterally. Has decreased BS at bases GASTROINTESTINAL: Abdomen soft, obese, non-tender, nondistended. Healed scars compatible with her surgical history. Bowel sounds are present and hypoactive. No guarding. No rebound. MUSCULOSKELETAL: Extremities without clubbing, cyanosis. She has brownish pigmentation in both legs. Has bilateral pitting edema, looks slightly better. No calf tenderness. NEUROLOGICAL: Non-focal PSYCH: Appropriate affect, calm and cooperative LINE: PIV with no evidence of infection : T[place] cath in place, urine looks clear Assessment & Plan Remarks IMPRESSION Positive BC, first set with 2 different Coag Neg Staph, second set with anaerobic GPC - C/W contaminants Respiratory failure, has bilateral basilar consolidation, ?effusion, possibly due to CHF, ?exac COPD - not really having any significant PNA symptoms COPD, O2 dependent S/P MVR 1990, with tissue valve, has moderate stenosis of tissue valve Renal insufficiency, worsening Obesity RECOMMENDATION Follow C/S Continue Cefepime Continue Zithromax Monitor progress Cardiology to eval If same, will change cefepime to Levaquin tomorrow Charleen Echols MD May 18, 2016 14:55
[2016-05-18] MEDS: WARFARIN SOD 5 MG TAB PO SCH (16:08)
--- NOTE | 2016-05-18 17:49 | RADRPT ---
EXAM DATE/TIME: 05/18/2016 17:26 [facility] COMPARISON: CHEST SINGLE AP, May 16, 2016, 6:24. INDICATIONS : Short of breath. MEDICAL HISTORY : Congestive heart failure. SURGICAL HISTORY : CABG. ENCOUNTER: Initial ACUITY: 1 day PAIN SCORE: 0/10 LOCATION: Bilateral chest FINDINGS: The heart is enlarged. The patient is post median sternotomy and valvular replacement. There are bila teral effusions and diffuse interstitial edema consistent with congestive failure. These are stable c ompared to previous examination. The bony structures are grossly intact. CONCLUSION: 1. Bilateral effusions and cardiomegaly consistent with congestive failure. Unchanged from previous. Moise Russell MD on May 18, 2016 at 17:47 Board Certified Radiologist. This report was verified electronically.
--- NOTE | 2016-05-18 18:26 | HHI.PR ---
Subjective Remarks Patient seen and examined this morning. Follow up for respiratory failure, suspected pneumonia, GPC bacteremia. Patient is doing better today. She is on nasal cannula. About to start eating breakfast. Denies any chest pain, shortness of breath, fever or chills. Objective Vitals Vital Signs Date Time Temp Pulse Resp B/P Pulse Ox O2 Delivery O2 Flow Rate FiO2 05/18/16 17:04 57 05/18/16 16:14 95 Nasal Cannula 6.00 05/18/16 16:14 97.5 60 22 129/61 96 05/18/16 16:00 60 05/18/16 15:00 59 05/18/16 14:00 60 05/18/16 13:00 61 05/18/16 12:00 59 05/18/16 11:50 94 Partial Rebreather 12.00 05/18/16 11:41 94 Nasal Cannula 6.00 05/18/16 11:41 97.3 59 22 118/67 93 05/18/16 11:00 58 05/18/16 10:15 95 Nasal Cannula 6.00 05/18/16 10:00 58 05/18/16 09:00 57 05/18/16 08:14 95 Partial Non-Rebreather 10.00 05/18/16 08:14 97.4 55 24 125/71 97 05/18/16 08:00 57 05/18/16 07:00 57 05/18/16 06:00 60 05/18/16 05:00 57 05/18/16 04:03 59 05/18/16 03:00 55 05/18/16 03:00 97 Partial Non-Rebreather 15.00 40 05/18/16 03:00 97.3 55 24 139/71 94 05/18/16 02:00 58 05/18/16 01:00 55 05/18/16 00:28 57 05/17/16 23:00 55 05/17/16 23:00 97.5 56 26 121/63 96 05/17/16 23:00 96 Partial Non-Rebreather 15.00 40 05/17/16 22:00 57 05/17/16 21:46 93 Partial Rebreather 05/17/16 21:00 55 05/17/16 20:00 52 05/17/16 19:00 96 Partial Non-Rebreather 15.00 40 05/17/16 19:00 56 05/17/16 19:00 97.2 54 24 120/60 96 I/O 05/17/16 05/17/16 05/17/16 05/18/16 05/18/16 05/18/16 07:00 15:00 23:00 07:00 15:00 23:00 Intake Total 720 ml 700 ml 240 ml Output Total 475 ml 1050 ml 415 ml Balance 245 ml -350 ml -175 ml Intake Oral 720 ml 600 ml 240 ml IV Total 100 ml Output Urine Total 475 ml 1050 ml 415 ml # Bowel Movements 1 1 0 Result Diagram: 05/18/16 0545 05/18/16 0545 Imaging Last Impressions Chest X-Ray 05/18/16 0000 Signed Impressions: Service Date/Time: April 17:26 - CONCLUSION: 1. Bilateral effusions and cardiomegaly consistent with congestive failure. Unchanged from previous. Moise Russell MD Objective Remarks GENERAL: AOX3, NAD. SKIN: Warm and dry. HEAD: Normocephalic. EYES: No scleral icterus. No injection or drainage. NECK: Supple, trachea midline. No JVD or lymphadenopathy. CARDIOVASCULAR: Regular rate and rhythm without murmurs, gallops, or rubs. RESPIRATORY: Breath sounds equal bilaterally. No accessory muscle use. Breath sounds diminished in the bibasilar space. GASTROINTESTINAL: Abdomen soft, non-tender, nondistended. MUSCULOSKELETAL: No cyanosis, or edema. BACK: Nontender without obvious deformity. No CVA tenderness. Procedures None. A/P Assessment and Plan Ms. Michaels is a pleasant 80 year old female with a history of COPD, CHF who was admitted to the ICU due to worsening shortness of breath. She required BiPAP. She had hypercapnic and hypoxic respiratory failure. She was also found to have GPC bacteremia. - Acute respiratory failure hypercapnic and hpoxic. - Currently on Nasal cannula. Use BiPAP PRN IPAP 19, EPAP 5. - Continue Solu-medrol. DuoNeb. - Pulmonary, ID following. Currently on Cefepime and Azithromycin. - Atrial fibrillation - Systolic congestive heart failure - Continue Amiodarone 200mg daily, Coreg 6.25mg BID. Continue Coumadin for anticoagulation - Echo --> EF 35%. - Continue Bumex IV 1mg Qday. - GPC bacteremia with staph coag negative - ID following Continue Cefepime, Azithromycin. - Hyperglycemia - blood glucose well controlled. Continue sliding scale insulin. - Skin fungal lesion - below left breast. - Continue Nystatin powder. - JASON - Creatinine 1.42 on admission to 2.17 on 05/18/2016. Full code. Heparin SQ. Warfarin INR 1.8. Will likely discontinue Heparin SQ on 05/19/2016. Jessica Ayala DO May 18, 2016 18:26
[2016-05-19] VITALS (38 sets, daily range): BP systolic 102–148; BP diastolic 51–109; PULSE 51–66; RESP 17–28; TEMP 96–97.6; O2SAT 89–100
[2016-05-19] MEDS: RESP: ALBUTEROL 2.5 MG/IPRATROPIUM 0.5 MG NEB (PRN) NEB ×2 (01:49→20:34)
[2016-05-19] MEDS: CHLORHEXIDINE GLUCONATE 2 % 1 PACK (2 CLOTHS) TOP SCH (04:00)
[2016-05-19] MEDS: HEPARIN SODIUM - SQ 10,000 UNITS/ML VIAL SQ SCH ×3 (04:38→20:26)
[2016-05-19] MEDS: LEVOTHYROXINE SODIUM 100 MCG TAB PO SCH (05:33)
[2016-05-19] MEDS: NYSTATIN 100,000 U/GM PWD 15 GM BTL TOPICAL SCH ×3 (05:34→20:27)
[2016-05-19 06:05] LABS: INTERNATIONAL NORMALIZED RATIO 2.3 RATIO; PROTHROMBIN TIME - PATIENT 26.5 SEC (9.8-11.6)
--- NOTE | 2016-05-19 06:11 | MB ---
cc: JAZLYN MALONE M.D., HANSCY M.D. DATE OF CONSULTATION May 17 1016. REASON FOR CONSULTATION Shortness of breath. Heart failure. HISTORY OF PRESENT ILLNESS Mrs. Michaels is an 80-year-old female with COPD, morbid obesity, high blood pressure, hyperlipidemia, renal insufficiency, history of rectal cancer, admitted due to shortness of breath. During the hospitalization sepsis suspected. There is a positive blood culture, also uncompensated heart failure. I was consulted for further evaluation and management. The chart was reviewed. The patient was evaluated. ALLERGIES BENZODIAZEPINE CLINDAMYCIN VALIUM. SOCIAL HISTORY The patient denies smoking and drinking at this point. FAMILY HISTORY Noncontributory to her current medical condition. MEDICATIONS 1. Cefepime. 2. Coumadin. 3. Acetaminophen. 4. Albuterol. 5. Amiodarone. 6. Zithromax. 7. Bumex. 8. Coreg. 9. Heparin. 10. Nystatin. 11. Aldactone. REVIEW OF SYSTEMS Refers feeling better, less shortness of breath. No fever. No vomiting. PHYSICAL EXAMINATION GENERAL: Alert, fully oriented, in bed, pleasant as usual. VITAL SIGNS: Blood pressure 118/72, pulse 60, respiratory 18. LUNGS: Ventilated. CARDIOVASCULAR: S1, S2. Regular. ABDOMEN: Soft. No mass. Obese. EXTREMITIES: With no significant edema. ELECTROCARDIOGRAM Atrial fibrillation, right bundle-branch block, right axis. LABORATORY DATA Hemoglobin is 12.5, white blood cells 8.0. Potassium was 4.6, creatinine 2.15. INR 1.7. ASSESSMENT AND RECOMMENDATIONS Mrs. Michaels currently is stable. There is shortness of breath. She is in atrial fibrillation but on anticoagulation. Heart rate controlled. INR still low at 1.7. Coumadin will be modified. At this point my recommendation is to continue with current management. Case extensively discussed with the patient. I will be available on a p.r.n. basis. Akbar Zaldivar MD HS/SSB /5:38 PM /6:05 AM
[2016-05-19] MEDS: INSULIN ASPART SUPPLEMENTAL SCALE SQ SCH ×4 (06:26→20:26)
[2016-05-19 07:06] LABS: BLOOD GAS BASE EXCESS 5.2 mmol/L (-2-2); BLOOD GAS CARBOXYHEMOGLOBIN 1.6 % (0-4); BLOOD GAS HCO3 32 mmol/L (22-26); BLOOD GAS METHEMOGLOBIN 0.9 % (0-2); BLOOD GAS O2 HGB SATURATION 92 % (90-100); BLOOD GAS OXYGEN CONTENT 17.8 Vol % (12.0-20.0); BLOOD GAS PCO2 78 mmHg (38-42); BLOOD GAS PO2 82 mmHg (61-120); BLOOD GAS TOTAL HGB 13.8 G/DL (12.0-16.0); CRITICAL VALUE YES; DRAW SITE LT RADIAL; FIO2 100 %; LITER FLOW 15 L/M; TEMP CORR TO 98.6
[2016-05-19 07:07] LABS: NUMBER OF ARTERIAL PUNCTURES 1; STAT YES; ULNAR PULSE PRESENT
[2016-05-19] MEDS: CHLORHEXIDINE 0.12% (ORAL KIT) 15 ML CUP MT SCH ×2 (08:00→20:00)
[2016-05-19 09:37] LABS: BLOOD GAS BASE EXCESS 6.6 mmol/L (-2-2); BLOOD GAS CARBOXYHEMOGLOBIN 1.9 % (0-4); BLOOD GAS HCO3 31 mmol/L (22-26); BLOOD GAS METHEMOGLOBIN 0.9 % (0-2); BLOOD GAS O2 HGB SATURATION 92 % (90-100); BLOOD GAS OXYGEN CONTENT 16.6 Vol % (12.0-20.0); BLOOD GAS PCO2 52 mmHg (38-42); BLOOD GAS PO2 71 mmHg (61-120); BLOOD GAS TOTAL HGB 12.8 G/DL (12.0-16.0); TEMP CORR TO 98.6
[2016-05-19 09:39] LABS: CRITICAL VALUE YES; OXYGEN DEVICE BiPAP
[2016-05-19 09:40] LABS: DRAW SITE LT RADIAL; FIO2 75 %; NUMBER OF ARTERIAL PUNCTURES 2; STAT NO; ULNAR PULSE PRESENT; VENT SETTINGS IPAP15/EPAP5
[2016-05-19] MEDS: PANTOPRAZOLE SODIUM 40 MG VIAL IV SCH (10:05)
[2016-05-19] MEDS: BUMETANIDE INJ 1 MG/4 ML VIAL IV PUSH SCH ×2 (10:06→20:25)
[2016-05-19] MEDS: ACETAMINOPHEN/HYDROcodone 325 MG/5 MG TAB PO PRN ×2 (10:06→20:27)
[2016-05-19] MEDS: ALLOPURINOL 100 MG TAB PO SCH (10:06)
[2016-05-19] MEDS: CARVEDILOL 6.25 MG TAB PO SCH ×2 (10:06→20:26)
[2016-05-19] MEDS: AZITHROMYCIN 250 MG TAB PO SCH (10:06)
[2016-05-19] MEDS: AMIODARONE 200 MG TAB PO SCH (10:06)
[2016-05-19] MEDS: SODIUM CHLORIDE 0.9% FLUSH 5 ML FLUSH IVF SCH ×2 (10:06→20:26)
[2016-05-19] MEDS: SPIRONOLACTONE 25 MG TAB PO SCH (10:06)
--- NOTE | 2016-05-19 11:30 | HHI.PR ---
Subjective Remarks Follow up for respiratory failure, pneumonia, bacteremia. Ms. Michaels required to be back on BiPAP today. On BiPAP, patient is doing well. No fever, chills. Objective Vitals Vital Signs Date Time Temp Pulse Resp B/P Pulse Ox O2 Delivery O2 Flow Rate FiO2 05/19/16 11:12 97.6 51 17 120/57 100 05/19/16 11:12 100 Bi-Pap 75 05/19/16 10:45 99 75 05/19/16 08:06 94 75 05/19/16 07:49 95 Bi-Pap 90 05/19/16 07:49 96.4 53 18 108/55 95 05/19/16 06:05 140/89 05/19/16 06:00 52 20 145/109 96 05/19/16 06:00 52 05/19/16 05:00 52 20 148/66 98 05/19/16 05:00 52 05/19/16 04:55 93 95 05/19/16 04:00 52 05/19/16 04:00 52 24 104/51 97 05/19/16 03:00 53 05/19/16 03:00 98 Bi-Pap 100 05/19/16 03:00 96.0 53 24 124/60 96 05/19/16 02:30 94 100 05/19/16 02:00 56 05/19/16 02:00 56 28 117/57 91 05/19/16 01:00 54 28 107/52 89 05/19/16 01:00 54 05/19/16 00:05 20 05/19/16 00:00 57 05/19/16 00:00 57 24 135/65 94 05/18/16 23:00 97.4 57 24 144/64 94 05/18/16 23:00 57 05/18/16 23:00 94 Partial Non-Rebreather 10.00 05/18/16 22:00 57 05/18/16 21:00 58 05/18/16 20:52 94 Partial Rebreather 12.00 05/18/16 20:00 58 05/18/16 19:49 96.0 59 24 142/65 95 05/18/16 19:49 95 Partial Non-Rebreather 10.00 05/18/16 19:00 58 05/18/16 18:00 58 05/18/16 17:04 57 05/18/16 16:14 95 Nasal Cannula 6.00 05/18/16 16:14 97.5 60 22 129/61 96 05/18/16 16:00 60 05/18/16 15:00 59 05/18/16 14:00 60 05/18/16 13:00 61 05/18/16 12:00 59 05/18/16 11:50 94 Partial Rebreather 12.00 05/18/16 11:41 94 Nasal Cannula 6.00 05/18/16 11:41 97.3 59 22 118/67 93 I/O 05/18/16 05/18/16 05/18/16 05/19/16 05/19/16 05/19/16 07:00 15:00 23:00 07:00 15:00 23:00 Intake Total 240 ml 580 ml 200 ml Output Total 415 ml 750 ml 300 ml Balance -175 ml -170 ml -100 ml Intake Oral 240 ml 480 ml 200 ml IV Total 100 ml 0 ml Output Urine Total 415 ml 750 ml 300 ml # Bowel Movements 0 0 0 Result Diagram: 05/18/16 0545 05/18/16 0545 Imaging Last Impressions Chest X-Ray 05/18/16 0000 Signed Impressions: Service Date/Time: April 17:26 - CONCLUSION: 1. Bilateral effusions and cardiomegaly consistent with congestive failure. Unchanged from previous. Moise Russell MD Objective Remarks GENERAL: AOX3, NAD. SKIN: Warm and dry. HEAD: Normocephalic. EYES: No scleral icterus. No injection or drainage. NECK: Supple, trachea midline. No JVD or lymphadenopathy. CARDIOVASCULAR: Regular rate and rhythm without murmurs, gallops, or rubs. RESPIRATORY: Breath sounds equal bilaterally. No accessory muscle use. Breath sounds diminished in the bibasilar space. GASTROINTESTINAL: Abdomen soft, non-tender, nondistended. MUSCULOSKELETAL: No cyanosis, or edema. BACK: Nontender without obvious deformity. No CVA tenderness. Procedures None. A/P Assessment and Plan Ms. Michaels is a pleasant 80 year old female with a history of COPD, CHF who was admitted to the ICU due to worsening shortness of breath. She required BiPAP. She had hypercapnic and hypoxic respiratory failure. She was also found to have GPC bacteremia. - Acute respiratory failure hypercapnic and hpoxic. - Currently on BiPAP 16 over 5. ABG shows 7.40/52/71 on 75% O2 via BiPAP. - Continue Solu-medrol. DuoNeb. - Pulmonary, ID following. Currently on Cefepime and Azithromycin. - Atrial fibrillation - Systolic congestive heart failure - Continue Amiodarone 200mg daily, Coreg 6.25mg BID. Continue Coumadin for anticoagulation - continue Spironolactone 25mg Qday - Echo --> EF 35%. - Continue Bumex IV 1mg Qday. Will increase to Bumex 1mg IV Q12hrs. - GPC bacteremia with staph coag negative - ID following Continue Cefepime, Azithromycin. - Hyperglycemia - blood glucose well controlled. Continue sliding scale insulin. - Skin fungal lesion - below left breast. - Continue Nystatin powder. - JASON - Creatinine 1.42 on admission to 2.17 on 05/18/2016. Full code. Heparin SQ. Warfarin INR 2.3. D/C Heparin SQ today. Jessica Ayala DO May 19, 2016 11:30 am
[2016-05-19] MEDS: CEFEPIME INJ 1,000 MG in SODIUM CHLORIDE 0.9% INJ 100 ML IV SCH (14:52)
[2016-05-19] MEDS ORDERED: WARFARIN SOD 2.5 MG TAB PO SCH (16:00)
--- NOTE | 2016-05-19 16:08 | HHI.IDPN ---
Subjective Subjective Remarks Notes reviewed Temps ok Still with SOB Using BIPAP intermittently CXR 05/18 CHF no change Antibiotics Cefepime Zithromax Lines PIV Past Medical History COPD, O2 dependent CHF Hypothyroidism History of arrhythmia Hypertension Renal insufficiency Lower extremity edema History of rectal cancer History of precancerous colonic polyp Past Surgical History MVR for endocarditis in 1990 Tonsillectomy Appendectomy Hysterectomy Partial colectomy for precancerous polyp Transanal resection of rectal cancer Exploratory laparotomy, lysis of adhesion, cholecystectomy, and repair of ventral hernia back in 2007 Allergies: Coded Allergies: Benzodiazepines (Verified Allergy, Severe, RAPID HEART BEAT, 05/12/16) Valium (Verified Allergy, Severe, Anxiety, 05/12/16) Clindamycin (Verified Adverse Reaction, Intermediate, chest pain, 05/12/16) Objective . Vital Signs Date Time Temp Pulse Resp B/P Pulse Ox O2 Delivery O2 Flow Rate FiO2 05/19/16 13:52 90 Nasal Cannula 6.00 05/19/16 11:12 97.6 51 17 120/57 100 05/19/16 11:12 100 Bi-Pap 75 05/19/16 10:45 99 75 05/19/16 08:06 94 75 05/19/16 07:49 95 Bi-Pap 90 05/19/16 07:49 96.4 53 18 108/55 95 05/19/16 06:05 140/89 05/19/16 06:00 52 20 145/109 96 05/19/16 06:00 52 05/19/16 05:00 52 20 148/66 98 05/19/16 05:00 52 05/19/16 04:55 93 95 05/19/16 04:00 52 05/19/16 04:00 52 24 104/51 97 05/19/16 03:00 53 05/19/16 03:00 98 Bi-Pap 100 05/19/16 03:00 96.0 53 24 124/60 96 05/19/16 02:30 94 100 05/19/16 02:00 56 05/19/16 02:00 56 28 117/57 91 05/19/16 01:00 54 28 107/52 89 05/19/16 01:00 54 05/19/16 00:05 20 05/19/16 00:00 57 05/19/16 00:00 57 24 135/65 94 05/18/16 23:00 97.4 57 24 144/64 94 05/18/16 23:00 57 05/18/16 23:00 94 Partial Non-Rebreather 10.00 05/18/16 22:00 57 05/18/16 21:00 58 05/18/16 20:52 94 Partial Rebreather 12.00 05/18/16 20:00 58 05/18/16 19:49 96.0 59 24 142/65 95 05/18/16 19:49 95 Partial Non-Rebreather 10.00 05/18/16 19:00 58 05/18/16 18:00 58 05/18/16 17:04 57 05/18/16 16:14 95 Nasal Cannula 6.00 05/18/16 16:14 97.5 60 22 129/61 96 05/18/16 05/18/16 05/19/16 15:00 23:00 07:00 Intake Total 580 ml 200 ml Output Total 750 ml 300 ml Balance -170 ml -100 ml Intake Oral 480 ml 200 ml IV Total 100 ml 0 ml Output Urine Total 750 ml 300 ml # Bowel Movements 0 0 . Laboratory Tests Test 05/18/16 05:45 White Blood Count 8.8 TH/MM3 Red Blood Count 4.08 MIL/MM3 Hemoglobin 13.3 GM/DL Hematocrit 40.3 % Mean Corpuscular Volume 98.7 FL Mean Corpuscular Hemoglobin 32.5 PG Mean Corpuscular Hemoglobin 33.0 % Concent Red Cell Distribution Width 15.9 % Platelet Count 146 TH/MM3 Mean Platelet Volume 10.0 FL Neutrophils (%) (Auto) 81.0 % Lymphocytes (%) (Auto) 4.4 % Monocytes (%) (Auto) 13.2 % Eosinophils (%) (Auto) 1.2 % Basophils (%) (Auto) 0.2 % Neutrophils # (Auto) 7.1 TH/MM3 Lymphocytes # (Auto) 0.4 TH/MM3 Monocytes # (Auto) 1.2 TH/MM3 Eosinophils # (Auto) 0.1 TH/MM3 Basophils # (Auto) 0.0 TH/MM3 CBC Comment DIFF FINAL Differential Comment Laboratory Tests Test 05/18/16 05:45 Sodium Level 138 MEQ/L Potassium Level 4.3 MEQ/L Chloride Level 97 MEQ/L Carbon Dioxide Level 32.5 MEQ/L Anion Gap 9 MEQ/L Blood Urea Nitrogen 79 MG/DL Creatinine 2.17 MG/DL Estimat Glomerular Filtration 22 ML/MIN Rate Random Glucose 119 MG/DL Calcium Level 8.2 MG/DL Imaging Chest X-Ray 05/18/16 0000 Signed Impressions: Service Date/Time: April 17:26 - CONCLUSION: 1. Bilateral effusions and cardiomegaly consistent with congestive failure. Unchanged from previous. Moise Russell MD Chest X-Ray 05/16/16 0600 Signed Impressions: Service Date/Time: Monday, May 16, 2016 06:24 - CONCLUSION: 1. Cardiomegaly with moderate left pleural effusion and probable small right pleural effusion. 2. Bilateral perihilar airspace disease, likely CHF. 3. Previous heart valve replacement. Sammy Fish MD Chest X-Ray 05/15/16 0000 Signed Impressions: Service Date/Time: Sunday, May 15, 2016 04:54 - CONCLUSION: 1. The previously noted infiltrate in the right upper lung has resolved. 2. Stable parenchymal consolidation the left lung base. Gerard Quick MD Physical Exam GENERAL: Awake, looks more comfortable at rest, on nasal O2 SKIN: Cool and dry. No generalized rash HEENT: [place] conjunctivae, no petechia or subconjunctival hemorrhage. No scleral icterus. Moist oral mucosa. NECK: Supple, nontender, no meningeal signs. CARDIOVASCULAR: Regular rate and rhythm without murmurs, gallops, or rubs. Soft heart sounds. RESPIRATORY: Breath sounds equal bilaterally. Has decreased BS at bases GASTROINTESTINAL: Abdomen soft, obese, non-tender, nondistended. Healed scars compatible with her surgical history. Bowel sounds are present and hypoactive. MUSCULOSKELETAL: Extremities without clubbing, cyanosis. She has brownish pigmentation in both legs. Has bilateral pitting edema, looks slightly better. No calf tenderness. NEUROLOGICAL: Non-focal PSYCH: Appropriate affect, calm and cooperative LINE: PIV with no evidence of infection : [place] cath in place, urine looks clear Assessment & Plan Remarks IMPRESSION Positive BC, first set with 2 different Coag Neg Staph, second set with anaerobic GPC - C/W contaminants Respiratory failure, has bilateral basilar consolidation, ?effusion, possibly due to CHF, ?exac COPD - not really having any significant PNA symptoms COPD, O2 dependent S/P MVR 1990, with tissue valve, has moderate stenosis of tissue valve Renal insufficiency, stable Obesity RECOMMENDATION Change Cefepime to Levaquin Stop Zithromax Monitor progress Clinically stable from ID standpoint Charleen Echols MD May 19, 2016 16:08
[2016-05-20] VITALS (30 sets, daily range): BP systolic 83–124; BP diastolic 45–61; PULSE 51–93; RESP 18–28; TEMP 96.2–98.4; O2SAT 92–100
[2016-05-20] MEDS: CHLORHEXIDINE GLUCONATE 2 % 1 PACK (2 CLOTHS) TOP SCH (03:37)
[2016-05-20] MEDS: HEPARIN SODIUM - SQ 10,000 UNITS/ML VIAL SQ SCH (05:05)
[2016-05-20] MEDS: LEVOTHYROXINE SODIUM 100 MCG TAB PO SCH (05:05)
[2016-05-20] MEDS: NYSTATIN 100,000 U/GM PWD 15 GM BTL TOPICAL SCH ×3 (05:05→20:24)
[2016-05-20] MEDS: INSULIN ASPART SUPPLEMENTAL SCALE SQ SCH ×4 (05:09→20:24)
--- NOTE | 2016-05-20 07:23 | HHI.PR ---
Subjective Remarks Follow up for respiratory failure, pneumonia, bacteremia. Ms. Michaels reports feeling well, currently on nonrebreather. Denies any chest pain, fever or chills. Objective Vitals Vital Signs Date Time Temp Pulse Resp B/P Pulse Ox O2 Delivery O2 Flow Rate FiO2 05/20/16 06:00 51 05/20/16 05:00 51 24 118/58 99 05/20/16 05:00 51 05/20/16 04:00 51 05/20/16 04:00 51 24 113/61 100 05/20/16 03:24 100 80 05/20/16 03:10 100 Bi-Pap 80 05/20/16 03:00 51 05/20/16 03:00 96.2 51 20 113/61 100 05/20/16 02:00 52 28 112/58 98 05/20/16 02:00 52 05/20/16 01:00 51 05/20/16 01:00 51 20 103/61 94 05/20/16 00:00 51 05/20/16 00:00 52 20 108/55 96 05/20/16 00:00 97 Bi-Pap 80 05/20/16 00:00 52 05/19/16 23:02 94 80 05/19/16 23:00 95 Bi-Pap 80 05/19/16 23:00 97.0 52 20 107/55 95 05/19/16 23:00 52 05/19/16 22:23 95 Bi-Pap 60 05/19/16 22:22 94 60 05/19/16 22:00 55 20 111/59 95 05/19/16 22:00 55 05/19/16 21:27 20 05/19/16 21:00 53 05/19/16 21:00 53 20 107/55 93 05/19/16 20:34 97 Non-Rebreather 15.00 100 05/19/16 20:00 54 05/19/16 20:00 54 20 113/56 93 05/19/16 19:18 100 Partial Non-Rebreather 15.00 05/19/16 19:18 96.6 55 24 127/61 99 05/19/16 19:00 58 20 127/61 95 05/19/16 19:00 66 05/19/16 18:04 53 05/19/16 17:00 55 05/19/16 16:24 98 70 05/19/16 16:20 100 Bi-Pap 75 05/19/16 16:20 97.6 55 19 102/68 100 05/19/16 16:00 55 05/19/16 15:00 53 05/19/16 14:00 51 05/19/16 13:52 90 Nasal Cannula 6.00 05/19/16 13:00 51 05/19/16 12:00 53 05/19/16 11:12 97.6 51 17 120/57 100 05/19/16 11:12 100 Bi-Pap 75 05/19/16 11:00 57 05/19/16 10:45 99 75 05/19/16 10:00 58 05/19/16 09:00 53 05/19/16 08:06 94 75 05/19/16 08:00 51 05/19/16 07:49 95 Bi-Pap 90 05/19/16 07:49 96.4 53 18 108/55 95 I/O 05/19/16 05/19/16 05/19/16 05/20/16 05/20/16 05/20/16 07:00 15:00 23:00 07:00 15:00 23:00 Intake Total 200 ml 220 ml 240 ml Output Total 300 ml 675 ml 500 ml Balance -100 ml -455 ml -260 ml Intake Oral 200 ml 120 ml 240 ml IV Total 0 ml 100 ml 0 ml Output Urine Total 300 ml 675 ml 500 ml Emesis 0 ml # Bowel Movements 0 0 Result Diagram: 05/18/16 0545 05/18/16 0545 Imaging Last Impressions Chest X-Ray 05/18/16 0000 Signed Impressions: Service Date/Time: April 17:26 - CONCLUSION: 1. Bilateral effusions and cardiomegaly consistent with congestive failure. Unchanged from previous. Moise Russell MD Objective Remarks GENERAL: AOX3, NAD. SKIN: Warm and dry. HEAD: Normocephalic. EYES: No scleral icterus. No injection or drainage. NECK: Supple, trachea midline. No JVD or lymphadenopathy. CARDIOVASCULAR: Regular rate and rhythm without murmurs, gallops, or rubs. RESPIRATORY: Breath sounds equal bilaterally. No accessory muscle use. Breath sounds diminished in the bibasilar space. GASTROINTESTINAL: Abdomen soft, non-tender, nondistended. MUSCULOSKELETAL: No cyanosis. trace edema in bilateral lower ext, tender to palpation. BACK: Nontender without obvious deformity. No CVA tenderness. Procedures None. A/P Assessment and Plan Ms. Michaels is a pleasant 80 year old female with a history of COPD, CHF who was admitted to the ICU due to worsening shortness of breath. She required BiPAP. She had hypercapnic and hypoxic respiratory failure. She was also found to have GPC bacteremia. - Acute respiratory failure hypercapnic and hpoxic. - Currently on BiPAP 16 over 5. ABG shows 7.40/52/71 on 75% O2 via BiPAP. - Continue Solu-medrol. DuoNeb. - Pulmonary, ID following. Patient was on Cefepime and Azithromycin. ID switched abx to Levaquin 250mg PO Qday X 3 days. - Atrial fibrillation - Systolic congestive heart failure - Continue Amiodarone 200mg daily, Coreg 6.25mg BID. Continue Coumadin for anticoagulation - continue Spironolactone 25mg Qday - Echo --> EF 35%, wide open Tricuspid regurgitation. - Continue Bumex 1mg IV Q12hrs. - INR 2.3 on 05/19/2016. We'll discontinue heparin subcutaneous. - If there is nothing else to offer from cardiology, we'll consult palliative care for possible hospice. - GPC bacteremia with staph coag negative - ID following Continue Levaquin - Hyperglycemia - blood glucose well controlled. Continue sliding scale insulin. - Skin fungal lesion - below left breast. - Continue Nystatin powder. - JASON - Creatinine 1.42 on admission to 2.17 on 05/18/2016. Repeat CBC BMP on . - Hypothyroidism - continue levothyroxine 100 g by mouth daily. Full code. Heparin SQ. Warfarin INR 2.3. Jessica Ayala DO May 20, 2016 7:23 am
[2016-05-20] MEDS: CHLORHEXIDINE 0.12% (ORAL KIT) 15 ML CUP MT SCH ×2 (08:00→20:00)
[2016-05-20] MEDS: BUMETANIDE INJ 1 MG/4 ML VIAL IV PUSH SCH ×2 (09:06→20:20)
[2016-05-20] MEDS: SODIUM CHLORIDE 0.9% FLUSH 5 ML FLUSH IVF SCH ×2 (09:06→20:21)
[2016-05-20] MEDS: ALLOPURINOL 100 MG TAB PO SCH (09:08)
[2016-05-20] MEDS: CARVEDILOL 6.25 MG TAB PO SCH ×2 (09:08→20:20)
[2016-05-20] MEDS: PANTOPRAZOLE SODIUM 40 MG VIAL IV SCH (09:08)
[2016-05-20] MEDS: AMIODARONE 200 MG TAB PO SCH (09:08)
[2016-05-20] MEDS: SPIRONOLACTONE 25 MG TAB PO SCH (09:08)
[2016-05-20] MEDS: ACETAMINOPHEN/HYDROcodone 325 MG/5 MG TAB PO PRN ×2 (09:13→20:20)
--- NOTE | 2016-05-20 11:29 | PD.CARD.PN ---
Subjective Subjective Remarks no complaints or overnight events Objective Medications Current Medications Medications (Trade) Dose Ordered Sig/Yola Route Start Time Stop Time Status Last Admin (NS Flush) 2 ml UNSCH PRN IVF 05/13/16 04:15 (NS Flush) 2 ml BID IVF 05/13/16 09:00 05/20/16 09:06 (Tylenol) 650 mg Q6H PRN PO 05/13/16 04:15 (Peridex 0.12% Liq) 15 ml BID@08,20 MT 05/13/16 08:00 05/20/16 08:00 (Protonix Inj) 40 mg DAILY IV 05/13/16 09:00 05/20/16 09:08 Miscellaneous Information 1 Q361D XX 05/13/16 04:15 (Chlorhexidine 2% Cloth) Taper DAILY@04 TOP 05/14/16 04:00 05/10/17 03:59 05/15/16 04:00 (Chlorhexidine 2% Cloth) 3 pack UNSCH PRN TOP 05/13/16 04:15 (Zyloprim) 100 mg DAILY PO 05/13/16 09:00 05/20/16 09:08 (Cordarone) 200 mg DAILY PO 05/13/16 09:00 05/20/16 09:08 (Coreg) 6.25 mg BID PO 05/13/16 09:00 05/20/16 09:08 ([place] 5-325 Mg) 1 tab Q6H PRN PO 05/13/16 04:30 05/20/16 09:13 (Aldactone) 25 mg DAILY PO 05/13/16 09:00 05/20/16 09:08 (Synthroid) 100 mcg DAILY@06 PO 05/13/16 06:00 05/20/16 05:05 (Coumadin) 2.5 mg Fr@16 PO 05/19/16 16:00 05/19/16 19:09 (Coumadin) 5 mg SuMoTuWeThSa@16 PO 05/13/16 16:00 05/18/16 16:08 Paroxetine HCl 10 mg 10 mg DAILY PRN PO 05/13/16 04:45 (Coumadin Consult Pharmacy) 0 ml @ 0 mls/hr UNSCH OTHER 05/15/16 10:00 (Mycostatin Powder) 1 applic Q8HR TOPICAL 05/16/16 14:00 05/20/16 05:05 (Bumex Inj) 1 mg Q12H IV PUSH 05/19/16 21:00 05/20/16 09:06 (Levaquin) 250 mg DAILY@11 PO 05/20/16 11:00 05/23/16 10:59 Vital Signs / I&O Vital Signs Date Time Temp Pulse Resp B/P Pulse Ox O2 Delivery O2 Flow Rate FiO2 05/20/16 11:00 98.1 64 20 93/55 98 05/20/16 11:00 94 Nasal Cannula 5.00 05/20/16 11:00 93 05/20/16 10:00 54 05/20/16 09:59 98 Partial Non-Rebreather 15.00 05/20/16 09:03 Non-Rebreather 100 05/20/16 09:00 54 05/20/16 08:00 55 05/20/16 07:36 99 80 05/20/16 07:36 99 BiPAP 80 05/20/16 07:00 54 05/20/16 07:00 100 Bi-Pap 05/20/16 07:00 98.4 53 18 116/59 100 05/20/16 06:00 51 05/20/16 05:00 51 24 118/58 99 05/20/16 05:00 51 05/20/16 04:00 51 05/20/16 04:00 51 24 113/61 100 05/20/16 03:24 100 80 05/20/16 03:10 100 Bi-Pap 80 05/20/16 03:00 51 05/20/16 03:00 96.2 51 20 113/61 100 05/20/16 02:00 52 28 112/58 98 05/20/16 02:00 52 05/20/16 01:00 51 05/20/16 01:00 51 20 103/61 94 05/20/16 00:00 51 05/20/16 00:00 52 20 108/55 96 05/20/16 00:00 97 Bi-Pap 80 05/20/16 00:00 52 05/19/16 23:02 94 80 05/19/16 23:00 95 Bi-Pap 80 05/19/16 23:00 97.0 52 20 107/55 95 05/19/16 23:00 52 05/19/16 22:23 95 Bi-Pap 60 05/19/16 22:22 94 60 05/19/16 22:00 55 20 111/59 95 05/19/16 22:00 55 05/19/16 21:27 20 05/19/16 21:00 53 05/19/16 21:00 53 20 107/55 93 05/19/16 20:34 97 Non-Rebreather 15.00 100 05/19/16 20:00 54 05/19/16 20:00 54 20 113/56 93 05/19/16 19:18 100 Partial Non-Rebreather 15.00 05/19/16 19:18 96.6 55 24 127/61 99 05/19/16 19:00 58 20 127/61 95 05/19/16 19:00 66 05/19/16 18:04 53 05/19/16 17:00 55 05/19/16 16:24 98 70 05/19/16 16:20 100 Bi-Pap 75 05/19/16 16:20 97.6 55 19 102/68 100 05/19/16 16:00 55 05/19/16 15:00 53 05/19/16 14:00 51 05/19/16 13:52 90 Nasal Cannula 6.00 05/19/16 13:00 51 05/19/16 12:00 53 I/O 05/19/16 05/19/16 05/19/16 05/20/16 05/20/16 05/20/16 07:00 15:00 23:00 07:00 15:00 23:00 Intake Total 200 ml 220 ml 240 ml Output Total 300 ml 675 ml 500 ml Balance -100 ml -455 ml -260 ml Intake Oral 200 ml 120 ml 240 ml IV Total 0 ml 100 ml 0 ml Output Urine Total 300 ml 675 ml 500 ml Emesis 0 ml # Bowel Movements 0 0 Physical Exam GENERAL: Well-nourished, well-developed patient. SKIN: Warm and dry. HEAD: Normocephalic. EYES: No scleral icterus. No injection or drainage. NECK: Supple, trachea midline. No JVD or lymphadenopathy. CARDIOVASCULAR: Irr Irr without murmurs, gallops, or rubs. RESPIRATORY: Breath sounds equal bilaterally. No accessory muscle use. GASTROINTESTINAL: Obese, Abdomen soft, non-tender, nondistended. EXTREMITIES: No cyanosis Imaging Last Impressions Chest X-Ray 05/18/16 0000 Signed Impressions: Service Date/Time: April 17:26 - CONCLUSION: 1. Bilateral effusions and cardiomegaly consistent with congestive failure. Unchanged from previous. Moise Russell MD Assessment and Plan Problem List: (1) CHF (congestive heart failure) Assessment and Plan: Cont rate controlled and OAC for Afib Cont medical management Sign off (2) Atrial fibrillation (3) COPD Problem Qualifiers (1) CHF (congestive heart failure): Qualified Code: I50.9 - Acute on chronic congestive heart failure, unspecified congestive heart failure type Dom Lew MD May 20, 2016 11:29
[2016-05-20 12:13] LABS: INTERNATIONAL NORMALIZED RATIO 2.6 RATIO; PROTHROMBIN TIME - PATIENT 30.4 SEC (9.8-11.6)
[2016-05-20] MEDS: LEVOFLOXACIN 250 MG TAB PO SCH (12:30)
[2016-05-20] MEDS ORDERED: WARFARIN SOD 2.5 MG TAB PO ONE (16:00)
[2016-05-21] VITALS (30 sets, daily range): BP systolic 100–132; BP diastolic 1–71; PULSE 56–83; RESP 20–24; TEMP 96.5–98.4; O2SAT 92–99
[2016-05-21] MEDS: CHLORHEXIDINE GLUCONATE 2 % 1 PACK (2 CLOTHS) TOP SCH ×2 (02:36→21:42)
[2016-05-21 04:38] LABS: AUTOMATED NEUTROPHIL # 7.3 TH/MM3 (1.8-7.7); BASOPHIL % 0.2 % (0.0-2.0); EOSINOPHIL # 0.2 TH/MM3 (0-0.4); EOSINOPHIL % 2.4 % (0.0-4.0); HEMATOCRIT 38.4 % (35.0-46.0); HEMO FLAGS DIFF FINAL; LYMPHOCYTE # 0.5 TH/MM3 (1.0-4.8); MEAN CELL VOLUME 98.6 FL (80.0-100.0); MEAN CORPUSCULAR HEMOGLOBIN 32.4 PG (27.0-34.0); MEAN CORPUSCULAR HGB CONC 32.8 % (32.0-36.0); MONO % 11.2 % (0.0-8.0); NEUT % 81.2 % (16.0-70.0); PLATELET COUNT 137 TH/MM3 (150-450); RED BLOOD COUNT 3.89 MIL/MM3 (4.00-5.30); RED CELL DISTRIBUTION WIDTH 15.8 % (11.6-17.2)
[2016-05-21 04:55] LABS: BICARBONATE 30.7 MEQ/L (21.0-32.0)
[2016-05-21 05:00] LABS: PROTHROMBIN TIME - PATIENT 34.8 SEC (9.8-11.6)
[2016-05-21] MEDS: NYSTATIN 100,000 U/GM PWD 15 GM BTL TOPICAL SCH ×3 (05:51→21:42)
[2016-05-21] MEDS: LEVOTHYROXINE SODIUM 100 MCG TAB PO SCH (05:51)
[2016-05-21] MEDS: ACETAMINOPHEN/HYDROcodone 325 MG/5 MG TAB PO PRN (05:53)
[2016-05-21] MEDS: INSULIN ASPART SUPPLEMENTAL SCALE SQ SCH ×4 (06:10→21:00)
[2016-05-21] MEDS: CHLORHEXIDINE 0.12% (ORAL KIT) 15 ML CUP MT SCH ×2 (08:00→20:00)
[2016-05-21] MEDS: PANTOPRAZOLE SODIUM 40 MG VIAL IV SCH (08:43)
[2016-05-21] MEDS: BUMETANIDE INJ 1 MG/4 ML VIAL IV PUSH SCH ×2 (08:44→21:41)
[2016-05-21] MEDS: CARVEDILOL 6.25 MG TAB PO SCH ×2 (08:44→21:41)
[2016-05-21] MEDS: SODIUM CHLORIDE 0.9% FLUSH 5 ML FLUSH IVF SCH ×2 (08:44→21:41)
[2016-05-21] MEDS: AMIODARONE 200 MG TAB PO SCH (08:44)
[2016-05-21] MEDS: SPIRONOLACTONE 25 MG TAB PO SCH (08:44)
[2016-05-21] MEDS: ALLOPURINOL 100 MG TAB PO SCH (10:10)
[2016-05-21] MEDS: LEVOFLOXACIN 250 MG TAB PO SCH (11:33)
--- NOTE | 2016-05-21 12:25 | HHI.PR ---
Subjective Remarks Follow up for respiratory failure, pneumonia, bacteremia. Ms. Michaels is currently on BiPAP. Denies any chest pain, fever or chills. Objective Vitals Vital Signs Date Time Temp Pulse Resp B/P Pulse Ox O2 Delivery O2 Flow Rate FiO2 05/21/16 10:00 56 05/21/16 09:12 93 60 05/21/16 09:00 83 05/21/16 08:00 67 05/21/16 07:29 97 BiPAP 60 05/21/16 07:29 97 60 05/21/16 07:00 68 05/21/16 07:00 98 Bi-Pap 05/21/16 07:00 98.4 68 20 107/60 98 05/21/16 06:33 20 05/21/16 06:00 69 24 110/1 96 05/21/16 06:00 69 05/21/16 05:00 67 24 100/63 97 05/21/16 05:00 67 05/21/16 04:00 67 05/21/16 04:00 67 24 111/63 99 05/21/16 04:00 99 Bi-Pap 60 05/21/16 03:33 95 60 05/21/16 03:00 65 05/21/16 03:00 96.5 65 24 115/60 95 05/21/16 02:00 67 05/21/16 02:00 67 24 106/57 93 05/21/16 01:10 96 60 05/21/16 01:00 66 05/21/16 01:00 66 24 112/61 96 05/21/16 00:49 66 24 114/59 95 05/21/16 00:00 64 05/20/16 23:37 97 Bi-Pap 60 05/20/16 23:32 97.5 65 28 91/54 97 05/20/16 23:00 66 05/20/16 22:54 98 60 05/20/16 22:00 63 05/20/16 21:00 64 05/20/16 21:00 93 Bi-Pap 70 05/20/16 21:00 64 24 83/45 93 05/20/16 20:00 65 24 124/57 93 05/20/16 20:00 92 60 05/20/16 20:00 93 Bi-Pap 60 05/20/16 20:00 65 05/20/16 19:15 95 Partial Non-Rebreather 15.00 05/20/16 19:00 68 05/20/16 19:00 97.4 68 28 120/59 94 05/20/16 18:00 66 05/20/16 17:00 66 05/20/16 16:00 66 05/20/16 15:35 97 60 05/20/16 15:00 76 05/20/16 15:00 98.4 66 20 96/53 99 05/20/16 15:00 99 Bi-Pap 05/20/16 14:00 68 05/20/16 13:10 92 70 05/20/16 13:00 68 I/O 05/20/16 05/20/16 05/20/16 05/21/16 05/21/16 05/21/16 07:00 15:00 23:00 07:00 15:00 23:00 Intake Total 240 ml 1200 ml 360 ml Output Total 500 ml 675 ml 500 ml Balance -260 ml 525 ml -140 ml Intake Oral 240 ml 1200 ml 360 ml IV Total 0 ml 0 ml Output Urine Total 500 ml 675 ml 500 ml Emesis 0 ml 0 ml # Bowel Movements 0 1 0 Result Diagram: 05/21/16 0320 05/21/16 0320 Imaging Last Impressions Chest X-Ray 05/18/16 0000 Signed Impressions: Service Date/Time: April 17:26 - CONCLUSION: 1. Bilateral effusions and cardiomegaly consistent with congestive failure. Unchanged from previous. Moise Russell MD Objective Remarks GENERAL: AOX3, NAD. SKIN: Warm and dry. HEAD: Normocephalic. EYES: No scleral icterus. No injection or drainage. NECK: Supple, trachea midline. No JVD or lymphadenopathy. CARDIOVASCULAR: Regular rate and rhythm without murmurs, gallops, or rubs. RESPIRATORY: Breath sounds equal bilaterally. No accessory muscle use. Breath sounds diminished in the bibasilar space. GASTROINTESTINAL: Abdomen soft, non-tender, nondistended. MUSCULOSKELETAL: No cyanosis. trace edema in bilateral lower ext, tender to palpation. BACK: Nontender without obvious deformity. No CVA tenderness. Procedures Echocardiogram 05/15/2016 SUMMARY - Left ventricle: The cavity size was mildly dilated. Wall thickness was increased in a pattern of mild LVH. Systolic function was moderately reduced. The estimated ejection fraction was 35%. Wall motion was normal; there were no regional wall motion abnormalities. - Aortic valve: Mildly calcified annulus. Trileaflet; mildly thickened, mildly calcified leaflets. Mild regurgitation. 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 - Left atrium: The atrium was mildly dilated. - Right ventricle: The cavity size was severely dilated. Wall thickness was normal. - Right atrium: The atrium was dilated. - Tricuspid valve: Wide-open regurgitation. A/P Assessment and Plan Ms. Michaels is a pleasant 80 year old female with a history of COPD, CHF who was admitted to the ICU due to worsening shortness of breath. She required BiPAP. She had hypercapnic and hypoxic respiratory failure. She was also found to have GPC bacteremia. - Acute respiratory failure hypercapnic and hpoxic. - Currently on BiPAP 16 over 5. ABG shows 7.40/52/71 on 75% O2 via BiPAP. - Continue Solu-medrol. DuoNeb. - Pulmonary, ID following. Patient was on Cefepime and Azithromycin. ID switched abx to Levaquin 250mg PO Qday X 3 days. - Atrial fibrillation - Systolic congestive heart failure - Continue Amiodarone 200mg daily, Coreg 6.25mg BID. Continue Coumadin for anticoagulation - continue Spironolactone 25mg Qday - Echo --> EF 35%, wide open Tricuspid regurgitation. - Continue Bumex 1mg IV Q12hrs. - INR 2.3 on 05/19/2016. We'll discontinue heparin subcutaneous. - No significant recommendations from Cardiology. Cardiology signed off on . - Will consult Palliative care team to help us with possibility of hospice care. - GPC bacteremia with staph coag negative - ID following Continue Levaquin - Hyperglycemia - blood glucose well controlled. Continue sliding scale insulin. - Skin fungal lesion - below left breast. - Continue Nystatin powder. - JASON - Creatinine 1.42 on admission to 2.17 --> 2.25 on 05/21/2016. - Hypothyroidism - continue levothyroxine 100 g by mouth daily. Full code. Warfarin INR 3.0. Jessica Ayala DO May 21, 2016 12:25 pm
[2016-05-22] VITALS (30 sets, daily range): BP systolic 101–123; BP diastolic 65–76; PULSE 68–89; RESP 20–32; TEMP 96–98.4; O2SAT 92–96
[2016-05-22] MEDS: NYSTATIN 100,000 U/GM PWD 15 GM BTL TOPICAL SCH ×3 (05:38→22:00)
[2016-05-22] MEDS: INSULIN ASPART SUPPLEMENTAL SCALE SQ SCH ×4 (05:40→20:30)
[2016-05-22] MEDS: LEVOTHYROXINE SODIUM 100 MCG TAB PO SCH (05:42)
[2016-05-22] MEDS: ACETAMINOPHEN/HYDROcodone 325 MG/5 MG TAB PO PRN ×2 (05:46→12:23)
[2016-05-22] MEDS: CHLORHEXIDINE 0.12% (ORAL KIT) 15 ML CUP MT SCH ×2 (08:00→20:00)
[2016-05-22 08:04] LABS: INTERNATIONAL NORMALIZED RATIO 3.1 RATIO; PROTHROMBIN TIME - PATIENT 35.8 SEC (9.8-11.6)
[2016-05-22] MEDS: ALLOPURINOL 100 MG TAB PO SCH (09:47)
[2016-05-22] MEDS: PANTOPRAZOLE SODIUM 40 MG VIAL IV SCH (09:47)
[2016-05-22] MEDS: CARVEDILOL 6.25 MG TAB PO SCH ×2 (09:47→20:29)
[2016-05-22] MEDS: BUMETANIDE INJ 1 MG/4 ML VIAL IV PUSH SCH (09:47)
[2016-05-22] MEDS: SPIRONOLACTONE 25 MG TAB PO SCH (09:47)
[2016-05-22] MEDS: SODIUM CHLORIDE 0.9% FLUSH 5 ML FLUSH IVF SCH ×2 (09:48→20:28)
[2016-05-22] MEDS: AMIODARONE 200 MG TAB PO SCH (09:48)
--- NOTE | 2016-05-22 10:29 | HHI.IDPN ---
Subjective Subjective Remarks Notes reviewed Temps ok Still with SOB On BIPAP right now CXR 05/18 CHF no change Antibiotics Levaquin Lines PIV Past Medical History COPD, O2 dependent CHF Hypothyroidism History of arrhythmia Hypertension Renal insufficiency Lower extremity edema History of rectal cancer History of precancerous colonic polyp Past Surgical History MVR for endocarditis in 1990 Tonsillectomy Appendectomy Hysterectomy Partial colectomy for precancerous polyp Transanal resection of rectal cancer Exploratory laparotomy, lysis of adhesion, cholecystectomy, and repair of ventral hernia back in 2007 Allergies: Coded Allergies: Benzodiazepines (Verified Allergy, Severe, RAPID HEART BEAT, 05/12/16) Valium (Verified Allergy, Severe, Anxiety, 05/12/16) Clindamycin (Verified Adverse Reaction, Intermediate, chest pain, 05/12/16) Objective . Vital Signs Date Time Temp Pulse Resp B/P Pulse Ox O2 Delivery O2 Flow Rate FiO2 05/22/16 09:15 94 60 05/22/16 09:00 72 05/22/16 08:08 92 Bi-Pap 60 05/22/16 08:08 70 05/22/16 08:08 98.4 71 25 115/68 92 05/22/16 07:00 71 05/22/16 06:00 72 05/22/16 05:00 73 05/22/16 04:00 94 Bi-Pap 05/22/16 04:00 70 05/22/16 04:00 97.8 70 20 123/71 94 05/22/16 03:45 94 60 05/22/16 02:00 68 05/22/16 01:30 94 60 05/22/16 01:00 68 05/22/16 00:00 69 05/22/16 00:00 97.5 69 20 120/68 92 05/21/16 23:00 94 Bi-Pap 05/21/16 23:00 69 05/21/16 22:00 69 05/21/16 21:00 69 05/21/16 20:00 96 Bi-Pap 05/21/16 20:00 97.5 69 20 104/64 96 05/21/16 20:00 69 05/21/16 18:00 69 05/21/16 17:00 69 05/21/16 16:30 99 55 05/21/16 16:00 69 05/21/16 15:00 97.4 73 24 132/71 92 05/21/16 15:00 92 Bi-Pap 05/21/16 15:00 71 05/21/16 14:00 68 05/21/16 13:00 69 05/21/16 12:55 92 60 05/21/16 12:00 66 05/21/16 11:00 98.3 67 20 109/58 97 05/21/16 11:00 70 05/21/16 11:00 97 Bi-Pap 05/21/16 05/21/16 05/22/16 15:00 23:00 07:00 Intake Total 480 ml 400 ml Output Total 500 ml 300 ml Balance -20 ml 100 ml Intake Oral 480 ml 400 ml IV Total 0 ml Output Urine Total 500 ml 300 ml # Bowel Movements 0 . Laboratory Tests Test 05/21/16 03:20 White Blood Count 9.0 TH/MM3 Red Blood Count 3.89 MIL/MM3 Hemoglobin 12.6 GM/DL Hematocrit 38.4 % Mean Corpuscular Volume 98.6 FL Mean Corpuscular Hemoglobin 32.4 PG Mean Corpuscular Hemoglobin 32.8 % Concent Red Cell Distribution Width 15.8 % Platelet Count 137 TH/MM3 Mean Platelet Volume 10.8 FL Neutrophils (%) (Auto) 81.2 % Lymphocytes (%) (Auto) 5.0 % Monocytes (%) (Auto) 11.2 % Eosinophils (%) (Auto) 2.4 % Basophils (%) (Auto) 0.2 % Neutrophils # (Auto) 7.3 TH/MM3 Lymphocytes # (Auto) 0.5 TH/MM3 Monocytes # (Auto) 1.0 TH/MM3 Eosinophils # (Auto) 0.2 TH/MM3 Basophils # (Auto) 0.0 TH/MM3 CBC Comment DIFF FINAL Differential Comment Laboratory Tests Test 05/21/16 03:20 Sodium Level 138 MEQ/L Potassium Level 4.0 MEQ/L Chloride Level 100 MEQ/L Carbon Dioxide Level 30.7 MEQ/L Anion Gap 7 MEQ/L Blood Urea Nitrogen 81 MG/DL Creatinine 2.25 MG/DL Estimat Glomerular Filtration 21 ML/MIN Rate Random Glucose 132 MG/DL Calcium Level 8.3 MG/DL Imaging Chest X-Ray 05/18/16 0000 Signed Impressions: Service Date/Time: April 17:26 - CONCLUSION: 1. Bilateral effusions and cardiomegaly consistent with congestive failure. Unchanged from previous. Moise Russell MD Chest X-Ray 05/16/16 0600 Signed Impressions: Service Date/Time: Monday, May 16, 2016 06:24 - CONCLUSION: 1. Cardiomegaly with moderate left pleural effusion and probable small right pleural effusion. 2. Bilateral perihilar airspace disease, likely CHF. 3. Previous heart valve replacement. Sammy Fish MD Chest X-Ray 05/15/16 0000 Signed Impressions: Service Date/Time: Sunday, May 15, 2016 04:54 - CONCLUSION: 1. The previously noted infiltrate in the right upper lung has resolved. 2. Stable parenchymal consolidation the left lung base. Gerard Quick MD Physical Exam GENERAL: Awake, on BIPAP SKIN: Cool and dry. No generalized rash HEENT: [place] conjunctivae, no petechia or subconjunctival hemorrhage. No scleral icterus. Moist oral mucosa. NECK: Supple, nontender, no meningeal signs. CARDIOVASCULAR: Regular rate and rhythm without murmurs, gallops, or rubs. Soft heart sounds. RESPIRATORY: Breath sounds equal bilaterally. Has decreased BS at bases GASTROINTESTINAL: Abdomen soft, obese, non-tender, nondistended. Healed scars compatible with her surgical history. MUSCULOSKELETAL: Extremities without clubbing, cyanosis. Has bilateral pitting edema. No calf tenderness. 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
[2016-05-22] MEDS ORDERED: BUMETANIDE INJ 1 MG/4 ML VIAL IV PUSH ONE (11:15)
--- NOTE | 2016-05-22 11:15 | HHI.PR ---
Subjective Remarks Patient c/o sob whenoff bipap as per RN patient gets anxious when taken off of bipap no fevers or chills creatinine trending up urine output decreasing positive fluid balance Objective Vitals Vital Signs Date Time Temp Pulse Resp B/P Pulse Ox O2 Delivery O2 Flow Rate FiO2 05/22/16 09:15 94 60 05/22/16 09:00 72 05/22/16 08:08 92 Bi-Pap 60 05/22/16 08:08 70 05/22/16 08:08 98.4 71 25 115/68 92 05/22/16 07:00 71 05/22/16 06:00 72 05/22/16 05:00 73 05/22/16 04:00 94 Bi-Pap 05/22/16 04:00 70 05/22/16 04:00 97.8 70 20 123/71 94 05/22/16 03:45 94 60 05/22/16 02:00 68 05/22/16 01:30 94 60 05/22/16 01:00 68 05/22/16 00:00 69 05/22/16 00:00 97.5 69 20 120/68 92 05/21/16 23:00 94 Bi-Pap 05/21/16 23:00 69 05/21/16 22:00 69 05/21/16 21:00 69 05/21/16 20:00 96 Bi-Pap 05/21/16 20:00 97.5 69 20 104/64 96 05/21/16 20:00 69 05/21/16 18:00 69 05/21/16 17:00 69 05/21/16 16:30 99 55 05/21/16 16:00 69 05/21/16 15:00 97.4 73 24 132/71 92 05/21/16 15:00 92 Bi-Pap 05/21/16 15:00 71 05/21/16 14:00 68 05/21/16 13:00 69 05/21/16 12:55 92 60 05/21/16 12:00 66 I/O 05/21/16 05/21/16 05/21/16 05/22/16 05/22/16 05/22/16 07:00 15:00 23:00 07:00 15:00 23:00 Intake Total 360 ml 480 ml 400 ml Output Total 500 ml 500 ml 300 ml Balance -140 ml -20 ml 100 ml Intake Oral 360 ml 480 ml 400 ml IV Total 0 ml 0 ml Output Urine Total 500 ml 500 ml 300 ml Emesis 0 ml # Bowel Movements 0 0 Result Diagram: 05/21/16 0320 05/21/16 0320 Imaging Last Impressions Chest X-Ray 05/18/16 0000 Signed Impressions: Service Date/Time: April 17:26 - CONCLUSION: 1. Bilateral effusions and cardiomegaly consistent with congestive failure. Unchanged from previous. Moise Russell MD Reviewed by me Objective Remarks GENERAL: AOX3, NAD. SKIN: Warm and dry. HEAD: Normocephalic. EYES: No scleral icterus. No injection or drainage. NECK: Supple, trachea midline. No JVD or lymphadenopathy. CARDIOVASCULAR: Regular rate and rhythm without murmurs, gallops, or rubs. RESPIRATORY: Breath sounds equal bilaterally. No accessory muscle use. Breath sounds diminished in the bibasilar space. GASTROINTESTINAL: Abdomen soft, non-tender, nondistended. MUSCULOSKELETAL: No cyanosis. trace edema in bilateral lower ext, tender to palpation. BACK: Nontender without obvious deformity. No CVA tenderness. Procedures Echocardiogram 05/15/2016 SUMMARY - Left ventricle: The cavity size was mildly dilated. Wall thickness was increased in a pattern of mild LVH. Systolic function was moderately reduced. The estimated ejection fraction was 35%. Wall motion was normal; there were no regional wall motion abnormalities. - Aortic valve: Mildly calcified annulus. Trileaflet; mildly thickened, mildly calcified leaflets. Mild regurgitation. 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 - Left atrium: The atrium was mildly dilated. - Right ventricle: The cavity size was severely dilated. Wall thickness was normal. - Right atrium: The atrium was dilated. - Tricuspid valve: Wide-open regurgitation. Medications and IVs Current Medications Medications (Trade) Dose Ordered Sig/Yola Route Start Time Stop Time Status Last Admin (NS Flush) 2 ml UNSCH PRN IVF 05/13/16 04:15 (NS Flush) 2 ml BID IVF 05/13/16 09:00 05/22/16 09:48 (Tylenol) 650 mg Q6H PRN PO 05/13/16 04:15 (Peridex 0.12% Liq) 15 ml BID@08,20 MT 05/13/16 08:00 05/21/16 08:00 (Protonix Inj) 40 mg DAILY IV 05/13/16 09:00 05/22/16 09:47 Miscellaneous Information 1 Q361D XX 05/13/16 04:15 (Chlorhexidine 2% Cloth) Taper DAILY@04 TOP 05/14/16 04:00 05/10/17 03:59 05/15/16 04:00 (Chlorhexidine 2% Cloth) 3 pack UNSCH PRN TOP 05/13/16 04:15 (Zyloprim) 100 mg DAILY PO 05/13/16 09:00 05/22/16 09:47 (Cordarone) 200 mg DAILY PO 05/13/16 09:00 05/22/16 09:48 (Coreg) 6.25 mg BID PO 05/13/16 09:00 05/22/16 09:47 ([place] 5-325 Mg) 1 tab Q6H PRN PO 05/13/16 04:30 05/22/16 05:46 (Aldactone) 25 mg DAILY PO 05/13/16 09:00 05/22/16 09:47 (Synthroid) 100 mcg DAILY@06 PO 05/13/16 06:00 05/22/16 05:42 (Coumadin) 2.5 mg Fr@16 PO 05/19/16 16:00 05/19/16 19:09 (Coumadin) 5 mg SuMoTuWeThSa@16 PO 05/13/16 16:00 Hold 05/18/16 16:08 Paroxetine HCl 10 mg 10 mg DAILY PRN PO 05/13/16 04:45 (Coumadin Consult Pharmacy) 0 ml @ 0 mls/hr UNSCH OTHER 05/15/16 10:00 (Mycostatin Powder) 1 applic Q8HR TOPICAL 05/16/16 14:00 05/22/16 05:38 (Levaquin) 250 mg DAILY@11 PO 05/20/16 11:00 05/23/16 10:59 05/21/16 11:33 Bumetanide 2 mg 2 mg NOW ONCE IV PUSH 05/22/16 11:15 05/22/16 11:16 (Bumex Inj) 100 ml @ 2 mls/hr CONTINUOUS IV 05/22/16 13:15 Urinary Catheter: Yes Assessment to: Continue Tavares insert reason: Measure Accurate Output Vascular Central Line Catheter: No A/P Problem List: (1) Acute hypoxemic respiratory failure ICD Code: J96.01 Status: Acute Plan: Currently on bipap - continue sp Solumedrol treatment - no wheezing at this time Pulmonary and ID Following. Patient sp Rx with Cefepime and Azithromycin. ID switched abx to Levaquin 250 mg po Q 3 days. Check CXR - shows bilateral effusions and cardiomegaly. Will order CT chest. (2) Acute systolic congestive heart failure ICD Code: I50.21 Status: Acute Plan: Patient bweing diuresed on Bumex 1 mg IV BID, patient with decreasing urine output and positive fluid balance. Will DC IV bumex and start in IV Bumex drip. Continue to monitor strict I's and O's. (3) Coag negative Staphylococcus bacteremia ICD Code: R78.81 Status: Acute Plan: fu ID recommendations Patient with Levaquin as per ID (4) Hyperglycemia ICD Code: R73.9 Status: Acute Plan: Blood sugars stable - Continue SSI with insulin (5) Fungal infection of skin ICD Code: B36.9 Status: Acute Plan: Continue statin - seems to be improved (6) JASON (acute kidney injury) ICD Code: N17.9 Status: Acute Plan: wosening JASON. At this point will place on Bumex drip which might worsen renal function on expense of getting fluid off of the patient. Will consult nephrology. (7) Hypothyroid ICD Code: E03.9 Status: Acute Plan: continue levothyroxine Ayaan Chavez MD May 22, 2016 11:15
--- NOTE | 2016-05-22 11:18 | PD.CONS ---
Consult Service Palliative Care Consult Requested By Dr Ayala . Primary Care Physician Isac Chanel MD Reason for Consultation a. To assist with evaluation and management of symptoms including: Dyspnea, anxiety, chronic pain b. To assist medical decision maker(s) with: better understanding of current medical conditions; weighing benefits/burdens of medical treatment options; making medical treatment decisions. HPI History of Present Illness 80-year-old female presented to the ED on 05/12/16 via EMS, from home. Reporting 6 hours of shortness of breath, progressive. She uses home O2 2 L at all times. EMS reported O2 sats on 2 L 86%. He also reported diffuse expiratory wheezing and decreased breath sounds they increased O2 in administered Solu-Medrol. Patient reports no fever or chills or cough. Denied chest pain. Denied neck or jaw or back or arm or abdominal pains. No swelling reported. * ED course: EKG findings of atrial fibrillation controlled rate. No acute injury identified. IV access obtained. Patient comfortable on nasal cannula-- later required BiPAP. Dyspnea with exertion. Receiving Bumex. CXR= global cardiomegaly with bilateral airspace disease most consolidative in left lung base and right upper lobe. Primary differential diagnosis included pneumonia and mild edema. Initiated on empiric IV antibiotics cefepime. CBC unremarkable. CMP : Hyperkalemia 5.2, BUN 30/creatinine 1.42. GFR 35. Admitted to cardiac unit, for further evaluation and management of CHF, COPD exacerbation/suspected pneumonia. * 05/15-continues to be on and off of BiPAP alternating with high flow nasal cannula. CXR still with bibasilar infiltrates. pulmonology consulted. Noncontrast CT chest pending able to wean her oxygen requirements, to evaluate basilar infiltrates vs densities r/t fluid. 2D echo = EF 35%, wall motion normal. Aortic valve mildly calcified mild regurg. Mitral valve moderate stenosis of valve prosthesis. Left atrium mildly to dilated, right ventricle severely dilated. Right Atrium dilated. Tricuspid wide open regurg. ID also consulted -- Positive BC, first set with 2 different Coag Neg Staph, second set still pending--> likely contaminants // Pt on Vanco, cefepime, on Zithromax , Cefepime, following cultures.. * 05/18 improving slightly, now on [place] o2. Eating some. Noted to be FULL CODE . Cardiology consulted--notes patient stable, atrial fib controlled recommends continue current management. Cardiology to follow as needed. * 05/21--patient clinically stable however continues to require intermittent high levels of oxygen nonrebreather. Palliative care consulted to assist with clarification of goals of treatment. Patient seen in room no visitors present. [employer] medical student Karine Thrasher present for visit. Patient alert, on BiPAP mask, 60% FiO2. Limited verbalization due to BiPAP, explore with her if she desires to try to switch to a regular facemask to assist with talking she indicates that she currently feels too short of breath to try to switch. She is oriented, cooperative appears to have reasonable insight. Moves all 4 extremities with generalized weakness. Limited discussion due to dyspnea, endorses her breathing feels worse with too much talking. Goals of this time are aggressive-see conference for additional detail. Endorses generalized aches and pains, related to arthritis, also appears visibly anxious and tachypneic with conversation. Assisted her to complete healthcare surrogate designation naming her niece Bela. She indicates she does have this documentation somewhere at home possibly; but in light of not currently having documents assisted her to complete new here. Offered to call her niece to provide an update she declines for me to do this at this time. Function/Cognitive Trajectory Lives in a senior apartment complex at [facility]. Reported to be mostly independent, utilized a walker and O2 prior to admission. Not clear based on consultation today if she was actually able to complete shopping and other activities needed to sustain herself. Review of Systems ROS Limitations: Other (short of breath, BiPAP mask) Constitutional: COMPLAINS OF: Pain (generalized, aches), DENIES: Fever, Chills , Change in appetite Respiratory: COMPLAINS OF: Shortness of breath, DENIES: Sputum production Cardiovascular: DENIES: Chest pain, Lower Extremity Edema Gastrointestinal: DENIES: Abdominal pain, Nausea, Vomiting Musculoskeletal: COMPLAINS OF: Joint pain (generalized aches and pains) Psychiatric: COMPLAINS OF: Anxiety Past Family Social History Coded Allergies: Benzodiazepines (Verified Allergy, Severe, RAPID HEART BEAT, 05/12/16) Valium (Verified Allergy, Severe, Anxiety, 05/12/16) Clindamycin (Verified Adverse Reaction, Intermediate, chest pain, 05/12/16) Past Medical History CHF COPD 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 Reported Medications Zyloprim (Allopurinol) 100 Mg Tab 100 Mg PO DAILY Bumex (Bumetanide) 2 Mg Tab 2 Mg PO DAILY 90 Days Synthroid 100 mcg (Levothyroxine Sodium) 100 Mcg Tab 100 Mcg PO DAILY 90 Days Coreg 6.25 mg (Carvedilol) 6.25 Mg Tab 6.25 Mg PO BID 90 Days [bedside commode] Dx: 278.01, 428 Warfarin 2.5 Mg Tab 2.5 Mg PO SUNDAY Warfarin Sodium 5 Mg Tab 5 Mg PO EVERY DAY EXCEPT SUN Spironolactone 25 Mg Tab 25 Mg PO DAILY Hydrocodone/Acetaminophen 5 mg/325 mg 1 Tab Tab 1 Tab PO Q6H PRN Amiodarone Hcl (Amiodarone HCl) 200 Mg Tab 200 Mg PO DAILY Paroxetine Hcl 10 Mg Tab 10 Mg PO DAILYPRN K-Dur (Potassium Chloride) 20 Meq Tabcr 20 Meq PO DAILY [O2] 2 L PRN PRN Current Medications Medications (Trade) Dose Ordered Sig/Yola Route Start Time Stop Time Status Last Admin (NS Flush) 2 ml UNSCH PRN IVF 05/13/16 04:15 (NS Flush) 2 ml BID IVF 05/13/16 09:00 05/22/16 09:48 (Tylenol) 650 mg Q6H PRN PO 05/13/16 04:15 (Peridex 0.12% Liq) 15 ml BID@08,20 MT 05/13/16 08:00 05/21/16 08:00 (Protonix Inj) 40 mg DAILY IV 05/13/16 09:00 05/22/16 09:47 Miscellaneous Information 1 Q361D XX 05/13/16 04:15 (Chlorhexidine 2% Cloth) Taper DAILY@04 TOP 05/14/16 04:00 05/10/17 03:59 05/15/16 04:00 (Chlorhexidine 2% Cloth) 3 pack UNSCH PRN TOP 05/13/16 04:15 (Zyloprim) 100 mg DAILY PO 05/13/16 09:00 05/22/16 09:47 (Cordarone) 200 mg DAILY PO 05/13/16 09:00 05/22/16 09:48 (Coreg) 6.25 mg BID PO 05/13/16 09:00 05/22/16 09:47 ([place] 5-325 Mg) 1 tab Q6H PRN PO 05/13/16 04:30 05/22/16 05:46 (Aldactone) 25 mg DAILY PO 05/13/16 09:00 05/22/16 09:47 (Synthroid) 100 mcg DAILY@06 PO 05/13/16 06:00 05/22/16 05:42 (Coumadin) 2.5 mg Fr@16 PO 05/19/16 16:00 05/19/16 19:09 (Coumadin) 5 mg SuMoTuWeThSa@16 PO 05/13/16 16:00 Hold 05/18/16 16:08 Paroxetine HCl 10 mg 10 mg DAILY PRN PO 05/13/16 04:45 (Coumadin Consult Pharmacy) 0 ml @ 0 mls/hr UNSCH OTHER 05/15/16 10:00 (Mycostatin Powder) 1 applic Q8HR TOPICAL 05/16/16 14:00 05/22/16 05:38 (Bumex Inj) 1 mg Q12H IV PUSH 05/19/16 21:00 05/22/16 09:47 (Levaquin) 250 mg DAILY@11 PO 05/20/16 11:00 05/23/16 10:59 05/21/16 11:33 Family History Per EMR family history notable for CVA and colon cancer in father, heart disease in mother--father of [place] at age 57, a sister also had heart failure, [place] Substance Use Tobacco: Former smoker 12 PPD times 1520 years, quit smoking at age 38. Alcohol: Prescription med abuse: Illicits: Psychosocial History Lived in an apartment locally. Supported by her niece Elif. . Spiritual/Cultural Factors No spiritual preference does not want computer programming manager visits Living Will: Completed, but not made available Health Care Surrogate: Completed, but not made available (completed new healthcare surrogate today 05/22 naming hardik Cramer) Date completed: 05/22/16 Health Care Surrogate(s): completed new healthcare surrogate today 05/22 naming hardik Cramer Ethical and Legal Issues Patient is currently able to participate and make her own decisions. She does have healthcare surrogate documents at home unable to access those at this time. Completed new designation today 05/22 naming her niece Bela as healthcare surrogate. Physical Exam Vital Signs Date Time Temp Pulse Resp B/P Pulse Ox O2 Delivery O2 Flow Rate FiO2 05/22/16 09:15 94 60 05/22/16 09:00 72 05/22/16 08:08 92 Bi-Pap 60 05/22/16 08:08 70 05/22/16 08:08 98.4 71 25 115/68 92 05/22/16 07:00 71 05/22/16 06:00 72 05/22/16 05:00 73 05/22/16 04:00 94 Bi-Pap 05/22/16 04:00 70 05/22/16 04:00 97.8 70 20 123/71 94 05/22/16 03:45 94 60 05/22/16 02:00 68 05/22/16 01:30 94 60 05/22/16 01:00 68 05/22/16 00:00 69 05/22/16 00:00 97.5 69 20 120/68 92 05/21/16 23:00 94 Bi-Pap 05/21/16 23:00 69 05/21/16 22:00 69 05/21/16 21:00 69 05/21/16 20:00 96 Bi-Pap 05/21/16 20:00 97.5 69 20 104/64 96 05/21/16 20:00 69 05/21/16 18:00 69 05/21/16 17:00 69 05/21/16 16:30 99 55 05/21/16 16:00 69 05/21/16 15:00 97.4 73 24 132/71 92 05/21/16 15:00 92 Bi-Pap 05/21/16 15:00 71 05/21/16 14:00 68 05/21/16 13:00 69 05/21/16 12:55 92 60 05/21/16 12:00 66 05/21/16 11:00 98.3 67 20 109/58 97 05/21/16 11:00 70 05/21/16 11:00 97 Bi-Pap 05/21/16 05/22/16 19:00 07:00 Intake Total 480 ml 400 ml Output Total 500 ml 300 ml Balance -20 ml 100 ml Intake Oral 480 ml 400 ml IV Total 0 ml Output Urine Total 500 ml 300 ml # Bowel Movements 0 Exam CONSTITUTIONAL/GENERAL: This is an obese patient, in ICU, on specialty bed, tachypneic and anxious appearing TUBES/LINES/DRAINS: Peripheral IV right forearm, Tavares catheter, specialty air bed, bIPAP mask SKIN: No jaundice, rashes, or lesions. Multiple areas of ecchymosis on upper extremities. No wounds seen anteriorly. Skin temperature appropriate. Slight cyanosis to fingernails beds. HEAD: Atraumatic. Normocephalic. EYES: Pupils equal and round and reactive. Extraocular motions intact. No scleral icterus. No injection or drainage. Fundi not examined. ENT: Hearing grossly normal. Nose without bleeding or purulent drainage. Oropharynx exam deferred due to BiPAP mask. Visible mucous membranes appear pink, dry. NECK: Trachea midline. Supple, nontender. No palpable thyroid enlargement or nodularity. CARDIOVASCULAR: Irregular rate and rhythm, heart sounds difficult to auscultate over breath sounds. Peripheral pulses symmetric. + General edema to peripheral. RESPIRATORY/CHEST: Symmetric, mildly labored respirations on BiPAP. Tachypneic. Course air movement throughout, decreased breath sounds to bases, though no wheezes or crackles heard. Breath sounds equal bilaterally. GASTROINTESTINAL: Abdomen soft, obese, nontender, nondistended. No hepato- splenomegaly, or palpable masses. No guarding. Bowel sounds present. GENITOURINARY: Without palpable bladder distension. Tavares catheter in place clear concentrated yellow urine. MUSCULOSKELETAL: Extremities without clubbing. Slight cyanosis to fingernails beds. Trace general peripheral edema. No joint tenderness or effusion noted. No mottling or clubbing. NEUROLOGICAL: Awake and alert. Mostly Oriented, appropriate seems to have reasonable insight. Limited verbalization/conversation due to BiPAP mask. Cooperative. Moves all 4 extremities with generalized weakness. PSYCHIATRIC: + Obvious anxiety/tachypnea. No apparent hallucinations or other psychotic thought process. Diagnostic Tests Laboratory Laboratory Tests Test 05/20/16 05/21/16 05/22/16 11:02 03:20 07:30 Prothrombin Time 30.4 SEC 34.8 SEC 35.8 SEC (9.8-11.6) (9.8-11.6) (9.8-11.6) Prothromb Time International 2.6 RATIO 3.0 RATIO 3.1 RATIO Ratio White Blood Count 9.0 TH/MM3 (4.0-11.0) Red Blood Count 3.89 MIL/MM3 (4.00-5.30) Hemoglobin 12.6 GM/DL (11.6-15.3) Hematocrit 38.4 % (35.0-46.0) Mean Corpuscular Volume 98.6 FL (80.0-100.0) Mean Corpuscular Hemoglobin 32.4 PG (27.0-34.0) Mean Corpuscular Hemoglobin 32.8 % Concent (32.0-36.0) Red Cell Distribution Width 15.8 % (11.6-17.2) Platelet Count 137 TH/MM3 (150-450) Mean Platelet Volume 10.8 FL (7.0-11.0) Neutrophils (%) (Auto) 81.2 % (16.0-70.0) Lymphocytes (%) (Auto) 5.0 % (9.0-44.0) Monocytes (%) (Auto) 11.2 % (0.0-8.0) Eosinophils (%) (Auto) 2.4 % (0.0-4.0) Basophils (%) (Auto) 0.2 % (0.0-2.0) Neutrophils # (Auto) 7.3 TH/MM3 (1.8-7.7) Lymphocytes # (Auto) 0.5 TH/MM3 (1.0-4.8) Monocytes # (Auto) 1.0 TH/MM3 (0-0.9) Eosinophils # (Auto) 0.2 TH/MM3 (0-0.4) Basophils # (Auto) 0.0 TH/MM3 (0-0.2) CBC Comment DIFF FINAL Differential Comment Sodium Level 138 MEQ/L (136-145) Potassium Level 4.0 MEQ/L (3.5-5.1) Chloride Level 100 MEQ/L (98-107) Carbon Dioxide Level 30.7 MEQ/L (21.0-32.0) Anion Gap 7 MEQ/L (5-15) Blood Urea Nitrogen 81 MG/DL (7-18) Creatinine 2.25 MG/DL (0.50-1.00) Estimat Glomerular Filtration 21 ML/MIN (>89) Rate Random Glucose 132 MG/DL (74-106) Calcium Level 8.3 MG/DL (8.5-10.1) Result Diagram: 05/21/16 0320 05/21/16 0320 Microbiology 05/15urinenegative for Legionella, negative Streptococcus 05/14sputumgrowth normal respiratory adonis 05/14blood cultureno growth 5 days 05/12blood culturestaff coagulase negative aerobic, anaerobic 05/12blood culture anaerobic gram-positive cocci Imaging Last Impressions Chest X-Ray 05/18/16 0000 Signed Impressions: Service Date/Time: April 17:26 - CONCLUSION: 1. Bilateral effusions and cardiomegaly consistent with congestive failure. Unchanged from previous. Moise Russell MD Patient/Family Conference Present at Family Conference: Patient Family Conference Time (mins): 25 Family Conference Location: Bedside Issues Discussed: Limited discussion with patient at bedside [limited due to tachypnea, dyspnea, anxiety]. Discussion included: * Palliative care role, purpose, approach * Brief review of medical, psychosocial, and spiritual history--she does not desire computer programming manager support does not indicate any confucianist or spiritual preference * Patients general health, functional status, in the months leading up to the current hospitalization--limited exploration of this patient indicated had been living in a senior apartment essentially on her own using assistive device of walker ambulating short distances. Not certain if she had additional help for shopping, meals etc. She indicated that she did things on her own. * Patient/family understanding of the current medical problems-brief review of current diagnoses and reason for hospitalization, she seems to understand this. * Patient/family understanding of prognosis-limited review, gently explore that medical team trying to maximize current treatments in place, but that she has at risk for worsening respiratory status and could require intubation and mechanical vent * Patients goals of care as best understood from advance directives and/or conversations and/or values-limited reviewfor now patient would want to try mechanical ventilation if necessary, though hopes to avoid this. Wishes to maximize current medical therapies to return to baseline status prior to admission. * CODE STATUS-elects full code * Legal decision maker/advance directives-patient indicates that she has completed such documents a though does not currently have with her. Niece is designated as HCS, completed new [facility] designation with her at this time. * Questions answered to the best of my ability--patient does not have very many questions, she indicates feeling short of breath and anxious. * Palliative care contact information provided Assessment and Plan Disease Oriented Problem List: (1) Pulmonary infiltrate (2) Atrial fibrillation (3) CHF (congestive heart failure) (4) COPD (5) Acute respiratory failure (6) Hypothyroid (7) Acute on chronic kidney failure (8) Coag negative Staphylococcus bacteremia Symptom Scale: (1) Anxiety 0-10 Scale: Unable to quantify (2) Dyspnea 0-10 Scale: Unable to quantify (3) Pain 0-10 Scale: Unable to quantify Pertinent Non-Medical Issues Psychosocial: . Lives in an adult senior apartment building. Supported by her niece Bela. Spiritual: Does not desire computer programming manager support. Legal:Patient is currently able to participate and make her own decisions. She does have healthcare surrogate documents at home unable to access those at this time. Completed new designation today 05/22 naming her niece Bela as healthcare surrogate. Ethical issues impacting care: Important Contacts Hardik Smithmick [phone] . Prognosis This patient was admitted for CHF exacerbation, systolic heart failure. Respiratory status has fluctuated requiring BiPAP alternating with high FiO2 (60 %). On chronic O2 at home. Remains high risk for further complications and respiratory setback including intubation. May be appropriate for hospice if goals compatible. . Code Status: Full Code Plan * Legal decision maker: Patient currently capacitated and able to make her own decisions. Has designated her niece Bela as HCS. * Goals: Goals are currently aggressive, patient wishes to continue to maximize medical treatments available to return to prior state. She does with to avoid intubation however is in agreement with a trial of mechanical ventilation if her condition requires. * CODE STATUS: Full code * SYMPTOMS: --Anxiety-multifactorial, likely related to COPD, worsening respiratory failure during acute hospitalization requiring BiPAP. Noted patient on Paxil regularly at home. Patient allergies reported as all benzodiazepines, Valium. Not sure if this is true allergy?//Reaction is rapid heartbeat. Could consider low-dose opiates ie 0.25mg hydromorphone Q 6-8 hours PRN to treat tachypnea, decrease respiratory drive which may in turn decrease associated anxiety.Home paxil has been continued-- > consider increasing dose to 20 mg. -- tachypnea: Multifactorial, patient with acute heart failure,+ COPD. Ongoing Tachypnea/anxiety. Continue maximize medical treatment, Bumex drip being added today by medical attending. on BIPAP FiO2 60%. Could consider low- dose opiates prn in lieu of benzodiazepine. (See above). CT chest pending. --Pain: History of arthritis, note does not report on any chronic pain medications. Reports chronic, generalized aches and pains. Has available prn [place]--sparing use 1-2 doses per day, will continue to monitor requirements/ effectiveness. Today during my exam endorses generalized pain though unable to reach or further qualify. Indicates pain pill effective. * Palliative care will continue to follow during hospital course as condition evolves, to assist patient/decision-maker with understanding of medical conditions, weighing benefits/burdens of treatment options, for clarification of goals of treatment. Additionally will assist with any symptoms of palliative concern Time Spent Total Floor Time (mins): 60 Face to Face Time (mins): 30 >50% Counseling/Coord of Care: Yes (discussed with medical attending, primary nurse) Thank you for the opportunity to participate in the care of Ms. Michaels. Attestation To help prompt me to consider important information that might be impacting today's encounter and assessment, information from prior notes written by myself or my colleagues may have been "brought forward" into today's note. My signature on this note, however, is an attestation that I personally performed the exam, history, and/or decision-making noted today, and, unless otherwise indicated, the interactions with patient, family, and staff as well as the review of records all occurred today. I also attest that the listed assessment and stated plan reflect my best clinical judgment today based on the combination of historical information, prior notes, and today's exam/ interactions. When time spent is documented, it refers only to time spent today by the signer, or if indicated, combined time spent today by collaborating physician/nurse practitioner. Debbie Rodríguez May 22, 2016 11:18
[2016-05-22] MEDS: LEVOFLOXACIN 250 MG TAB PO SCH (12:23)
[2016-05-22] MEDS ORDERED: BUMETANIDE INJ 100 ML IV SCH (13:15)
--- NOTE | 2016-05-22 14:51 | RADRPT ---
EXAM DATE/TIME: 05/22/2016 13:22 [facility] COMPARISON: CHEST SINGLE AP, May 16, 2016, 6:24. INDICATIONS: Short of breath. MEDICAL HISTORY: Chronic obstructive pulmonary disease. SURGICAL HISTORY: CABG. ENCOUNTER: Initial ACUITY: 1 week PAIN SCORE: Non-responsive. LOCATION: Bilateral chest FINDINGS: Sternal wires from previous biopsy are noted. Valvular prosthesis is evident. Heart is enlarged. M ild interstitial edema is present. Minimal consolidative changes are seen in the left base. CONCLUSION: 1. Cardiomegaly with mild congestive failure. 2. Consolidative changes left base. Luis Miguel Russell MD FACR on May 22, 2016 at 14:43 Board Certified Radiologist. This report was verified electronically.
--- NOTE | 2016-05-22 16:27 | PD.CONS ---
HPI Service Nephrology Consult Requested By Dr. Canseco Reason for Consult CKD Primary Care Physician Isac Chanel MD History of Present Illness 80 year old white female with COPD, O2 dependant, Atrial fibrillation, CHF came in with increasing shortness of breath currently in congestive heart failure, on Bipap, short of breath her creatinine has been 2.1-2.5 range and she is passing urine, started on Bumex drip at 0.5 mg /hr. Review of Systems Constitutional: COMPLAINS OF: Fatigue Respiratory: COMPLAINS OF: Shortness of breath Cardiovascular: COMPLAINS OF: Dyspnea on Exertion, Lower Extremity Edema Neurologic: COMPLAINS OF: Localized weakness Psychiatric: COMPLAINS OF: Anxiety Past Family Social History Allergies: Coded Allergies: Benzodiazepines (Verified Allergy, Severe, RAPID HEART BEAT, 05/12/16) Valium (Verified Allergy, Severe, Anxiety, 05/12/16) Clindamycin (Verified Adverse Reaction, Intermediate, chest pain, 05/12/16) Past Medical History COPD, O2 dependent CHF Hypothyroidism History of arrhythmia Hypertension Renal insufficiency Lower extremity edema History of rectal cancer History of precancerous colonic polyp Past Surgical History MVR for endocarditis in 1990 Tonsillectomy Appendectomy Hysterectomy Partial colectomy for precancerous polyp Transanal resection of rectal cancer Exploratory laparotomy, lysis of adhesion, cholecystectomy, and repair of ventral hernia back in 2007 Reported Medications Reported Meds & Active Scripts Active Zyloprim (Allopurinol) 100 Mg Tab 100 Mg PO DAILY Bumex (Bumetanide) 2 Mg Tab 2 Mg PO DAILY 90 Days Synthroid 100 mcg (Levothyroxine Sodium) 100 Mcg Tab 100 Mcg PO DAILY 90 Days Coreg 6.25 mg (Carvedilol) 6.25 Mg Tab 6.25 Mg PO BID 90 Days [bedside commode] Dx: 278.01, 428 Reported Warfarin 2.5 Mg Tab 2.5 Mg PO SUNDAY Warfarin Sodium 5 Mg Tab 5 Mg PO EVERY DAY EXCEPT SUN Spironolactone 25 Mg Tab 25 Mg PO DAILY Hydrocodone/Acetaminophen 5 mg/325 mg 1 Tab Tab 1 Tab PO Q6H PRN Amiodarone Hcl (Amiodarone HCl) 200 Mg Tab 200 Mg PO DAILY Paroxetine Hcl 10 Mg Tab 10 Mg PO DAILYPRN K-Dur (Potassium Chloride) 20 Meq Tabcr 20 Meq PO DAILY [O2] 2 L PRN PRN Active Ordered Medications Current Medications Medications (Trade) Dose Ordered Sig/Yola Route Start Time Stop Time Status Last Admin (NS Flush) 2 ml UNSCH PRN IVF 05/13/16 04:15 (NS Flush) 2 ml BID IVF 05/13/16 09:00 05/22/16 09:48 (Tylenol) 650 mg Q6H PRN PO 05/13/16 04:15 (Peridex 0.12% Liq) 15 ml BID@08,20 MT 05/13/16 08:00 05/21/16 08:00 (Protonix Inj) 40 mg DAILY IV 05/13/16 09:00 05/22/16 09:47 Miscellaneous Information 1 Q361D XX 05/13/16 04:15 (Chlorhexidine 2% Cloth) Taper DAILY@04 TOP 05/14/16 04:00 05/10/17 03:59 05/15/16 04:00 (Chlorhexidine 2% Cloth) 3 pack UNSCH PRN TOP 05/13/16 04:15 (Zyloprim) 100 mg DAILY PO 05/13/16 09:00 05/22/16 09:47 (Cordarone) 200 mg DAILY PO 05/13/16 09:00 05/22/16 09:48 (Coreg) 6.25 mg BID PO 05/13/16 09:00 05/22/16 09:47 (Davis 5-325 Mg) 1 tab Q6H PRN PO 05/13/16 04:30 05/22/16 12:23 (Aldactone) 25 mg DAILY PO 05/13/16 09:00 05/22/16 09:47 (Synthroid) 100 mcg DAILY@06 PO 05/13/16 06:00 05/22/16 05:42 (Coumadin) 2.5 mg Fr@16 PO 05/19/16 16:00 Hold 05/19/16 19:09 (Coumadin) 5 mg SuMoTuWeThSa@16 PO 05/13/16 16:00 Hold 05/18/16 16:08 Paroxetine HCl 10 mg 10 mg DAILY PRN PO 05/13/16 04:45 (Coumadin Consult Pharmacy) 0 ml @ 0 mls/hr UNSCH OTHER 05/15/16 10:00 (Mycostatin Powder) 1 applic Q8HR TOPICAL 05/16/16 14:00 05/22/16 15:28 Levofloxacin 250 mg 250 mg DAILY@11 PO 05/20/16 11:00 05/23/16 10:59 05/22/16 12:23 (Bumex Inj) 100 ml @ 2 mls/hr CONTINUOUS IV 05/22/16 13:15 05/22/16 15:28 Family History noncontributory Social History denies smoking or ETOH use Physical Exam Vital Signs Vital Signs Date Time Temp Pulse Resp B/P Pulse Ox O2 Delivery O2 Flow Rate FiO2 05/22/16 16:06 96 60 05/22/16 14:00 71 05/22/16 13:00 72 05/22/16 12:00 71 05/22/16 11:53 97.4 71 32 114/70 94 05/22/16 11:51 94 Bi-Pap 60 05/22/16 11:00 72 05/22/16 10:00 72 05/22/16 09:15 94 60 05/22/16 09:00 72 05/22/16 08:08 92 Bi-Pap 60 05/22/16 08:08 70 05/22/16 08:08 98.4 71 25 115/68 92 05/22/16 07:00 71 05/22/16 06:00 72 05/22/16 05:00 73 05/22/16 04:00 94 Bi-Pap 05/22/16 04:00 70 05/22/16 04:00 97.8 70 20 123/71 94 05/22/16 03:45 94 60 05/22/16 02:00 68 05/22/16 01:30 94 60 05/22/16 01:00 68 05/22/16 00:00 69 05/22/16 00:00 97.5 69 20 120/68 92 05/21/16 23:00 94 Bi-Pap 05/21/16 23:00 69 05/21/16 22:00 69 05/21/16 21:00 69 05/21/16 20:00 96 Bi-Pap 05/21/16 20:00 97.5 69 20 104/64 96 05/21/16 20:00 69 05/21/16 18:00 69 05/21/16 17:00 69 05/21/16 16:30 99 55 Physical Exam GENERAL: Well-nourished, well-developed patient.on Bipap SKIN: Warm and dry. HEAD: Normocephalic. EYES: No scleral icterus. No injection or drainage. NECK: Supple, trachea midline. No JVD or lymphadenopathy. CARDIOVASCULAR: irregular RESPIRATORY: Breath sounds diminished at bases GASTROINTESTINAL: Abdomen soft, non-tender, nondistended. EXTREMITIES: No cyanosis, 1 plus edema. NEUROLOGICAL: Awake, alert, and oriented x 3. Non-focal. Laboratory Laboratory Tests Test 05/22/16 07:30 Prothrombin Time 35.8 Prothromb Time International 3.1 Ratio Result Diagram: 05/21/16 0320 05/21/16 0320 Imaging Last Impressions Chest X-Ray 05/18/16 0000 Signed Impressions: Service Date/Time: April 17:26 - CONCLUSION: 1. Bilateral effusions and cardiomegaly consistent with congestive failure. Unchanged from previous. Moise Russell MD Assessment and Plan Problem List: (1) JASON (acute kidney injury) Plan: she has renal dysfunction, I will continue to observe get Kidney US ADRIEN/SPEP She needs diuresis will follow the results avoid Nephrotoxins check urine sodium/creatinine/protein started on Bumex drip (2) Acute systolic congestive heart failure Plan: 35% EF (3) Coag negative Staphylococcus bacteremia Plan: ID following Levaquin (4) COPD Plan: On O2 (5) CHF (congestive heart failure) Plan: EF 35% Problem Qualifiers (1) CHF (congestive heart failure): Qualified Code: I50.9 - Acute on chronic congestive heart failure, unspecified congestive heart failure type Jennifer Young MD May 22, 2016 16:27
--- NOTE | 2016-05-22 22:22 | RADRPT ---
EXAM DATE/TIME: 05/22/2016 20:51 [facility] COMPARISON: No previous studies available for comparison. INDICATIONS : Abnormal labs. MEDICAL HISTORY : Hyperthyroidism. Hypercholesterolemia. Chronic obstructive pulmonary disease. CHF. Endocarditis. Morb idly obese. Hypertension. A-Fib. Gout. SURGICAL HISTORY : Tonsillectomy. section. Tubal ligation. Cholecystectomy. Hysterectomy. ENCOUNTER: Initial ACUITY: 1 day PAIN SCORE: 1/10 LOCATION: Bilateral flank MEASUREMENTS: RIGHT KIDNEY: 11.8 x 4.5 x 5.0 cm LEFT KIDNEY: 14.8 x 9.5 cm FINDINGS: The kidneys are hyperechoic characteristic of medical renal disease. 1.4 cm cyst midpole right kidney . No hydronephrosis. CONCLUSION: 1. Hyperechoic kidneys characteristic of medical renal disease. No hydronephrosis. Cyrus Espinoza MD on May 22, 2016 at 22:19 Board Certified Radiologist. This report was verified electronically.
[2016-05-23] VITALS (31 sets, daily range): BP systolic 98–118; BP diastolic 55–87; PULSE 68–88; RESP 25–30; TEMP 95.8–97.6; O2SAT 90–96
[2016-05-23] MEDS: CHLORHEXIDINE GLUCONATE 2 % 1 PACK (2 CLOTHS) TOP SCH (04:00)
[2016-05-23 05:54] LABS: INTERNATIONAL NORMALIZED RATIO 3.2 RATIO; PROTHROMBIN TIME - PATIENT 37.5 SEC (9.8-11.6)
[2016-05-23] MEDS: NYSTATIN 100,000 U/GM PWD 15 GM BTL TOPICAL SCH ×3 (06:00→22:00)
[2016-05-23 06:04] LABS: BICARBONATE 31.1 MEQ/L (21.0-32.0); POTASSIUM 4.5 MEQ/L (3.5-5.1)
[2016-05-23 06:05] LABS: TOTAL PROTEIN SPE 6.1 GM/DL (6.0-7.6)
[2016-05-23] MEDS: INSULIN ASPART SUPPLEMENTAL SCALE SQ SCH ×4 (06:14→21:00)
[2016-05-23] MEDS: LEVOTHYROXINE SODIUM 100 MCG TAB PO SCH (06:24)
[2016-05-23 07:13] LABS: BASOPHIL # 0.1 TH/MM3 (0-0.2); BASOPHIL % 0.7 % (0.0-2.0); EOSINOPHIL # 0.1 TH/MM3 (0-0.4); EOSINOPHIL % 1.3 % (0.0-4.0); HEMO FLAGS DIFF FINAL; LYMPH % 5.4 % (9.0-44.0); LYMPHOCYTE # 0.5 TH/MM3 (1.0-4.8); MEAN CORPUSCULAR HEMOGLOBIN 32.4 PG (27.0-34.0); MEAN CORPUSCULAR HGB CONC 33.4 % (32.0-36.0); MONO % 8.9 % (0.0-8.0); NEUT % 83.7 % (16.0-70.0); PLATELET COUNT 145 TH/MM3 (150-450); RED BLOOD COUNT 4.23 MIL/MM3 (4.00-5.30); RED CELL DISTRIBUTION WIDTH 15.7 % (11.6-17.2); WHITE BLOOD COUNT 9.6 TH/MM3 (4.0-11.0)
[2016-05-23] MEDS: CHLORHEXIDINE 0.12% (ORAL KIT) 15 ML CUP MT SCH (08:00)
[2016-05-23] MEDS: SPIRONOLACTONE 25 MG TAB PO SCH (09:43)
[2016-05-23] MEDS: AMIODARONE 200 MG TAB PO SCH (09:43)
[2016-05-23] MEDS: CARVEDILOL 6.25 MG TAB PO SCH ×2 (09:43→22:36)
[2016-05-23] MEDS: ALLOPURINOL 100 MG TAB PO SCH (09:43)
[2016-05-23] MEDS: ACETAMINOPHEN/HYDROcodone 325 MG/5 MG TAB PO PRN (09:44)
[2016-05-23] MEDS: PANTOPRAZOLE SODIUM 40 MG VIAL IV SCH (09:44)
[2016-05-23] MEDS: SODIUM CHLORIDE 0.9% FLUSH 5 ML FLUSH IVF SCH ×2 (09:44→22:39)
[2016-05-23 10:08] LABS: ALBUMIN SPE 3.39 GM/DL (3.50-5.00)
[2016-05-23 10:09] LABS: ALPHA 1 GLOBULIN 0.27 GM/DL (0.11-0.29); ALPHA 2 GLOBULIN 0.97 GM/DL (0.22-1.00); BETA GLOBULINS (SPE) 0.75 GM/DL (0.53-1.03)
[2016-05-23] MEDS ORDERED: diphenhydrAMINE HCL 25 MG CAP PO ONE (13:30)
--- NOTE | 2016-05-23 13:38 | HHI.HCPN ---
Reason for visit a. To assist with evaluation and management of symptoms including: Dyspnea, anxiety, chronic pain b. To assist medical decision maker(s) with: better understanding of current medical conditions; weighing benefits/burdens of medical treatment options; making medical treatment decisions. Subjective/Interval History Pt seen today to follow up on anxiety/comfort, goals of treatment. She has remained in ICU, on bipap 60% fio2. Nursing reports only tolerates being off bipap a minute or so before desaturating, worsening dyspnea. Has not been able to obtain CT chest due to unable to tolerate laying flat for. Nephrology consulted yesterday for CKD. Cont. Bumex drip, also ordered renal u/ s. U/s =Hyperechoic kidneys characteristic of medical renal disease. No hydronephrosis . ADRIEN pending. CBC today unremarkable, no changes. BUN today 89/ creatinine 2.45. Urine output remains low. Patient seen in room no visitors present. She is on BiPAP which significantly limits her conversation. Nursing indicates significant desaturation with removal. Discussed with her as best as possible while still on BiPAP. Review with her past 24 hours of events, addition of Bumex, the current therapies are maximized and we are not seeing clinical improvement. She agrees and seems to understand that she is not getting better. I gently explore with her that I am concerned given current maximized therapies and lack of improvement thus far that she may continue to experience clinical decline leading to mechanical ventilation. Further explore that I'm not certain that medical mechanical ventilation would correct underlying medical issues and could result in prolonged time on mechanical vent and possibly tracheostomy; gently explore that alternatively if she continued to have clinical deterioration then she would also have the option to forego further aggressive/invasive treatments and elect comfort/hospice treatments. She endorses that she would still want to continue on mechanical vent however has not thought about any timeframe or limitation of prolonged ventilation. She endorses feeling the same as yesterday, no better nor worse. She endorses no appetite, too short of breath today. No apparent anxiety. She has been drinking some fluids. I offered to call and update her health care surrogate, her niece. She indicates that her niece does know that she is in the hospital but she has not spoken with her niece in the past day or so. I strongly recommended conversation with her niece regarding current clinical condition and risk for deterioration and possible intubation. I again offered to call her niece, she declined and told me that I may call her tomorrow. Discussed with primary nurse. . Advance Directives Living Will: Completed, but not made available Health Care Surrogate: Completed, but not made available (completed new healthcare surrogate today 05/22 naming niece Bela) Advance Directive Specifics Date completed: 05/22/16 Health Care Surrogate(s): completed new healthcare surrogate today 05/22 naming nidianna Cramer Objective Vital Signs Date Time Temp Pulse Resp B/P Pulse Ox O2 Delivery O2 Flow Rate FiO2 05/23/16 07:46 93 60 05/23/16 07:00 95.9 74 28 118/64 96 05/23/16 07:00 70 05/23/16 07:00 96 Bi-Pap 15.00 60 05/23/16 06:13 70 05/23/16 05:00 69 05/23/16 04:50 92 60 05/23/16 04:08 88 05/23/16 03:37 95 Bi-Pap 15.00 60 05/23/16 03:00 97.6 70 30 105/87 93 05/23/16 03:00 71 05/23/16 02:00 70 05/23/16 01:00 68 05/23/16 00:42 92 60 05/23/16 00:00 69 05/22/16 23:02 70 05/22/16 23:00 97.8 70 26 101/65 93 05/22/16 23:00 95 Bi-Pap 15.00 60 05/22/16 22:00 89 05/22/16 21:00 72 05/22/16 20:55 95 BiPAP 60 05/22/16 20:55 95 60 05/22/16 20:00 95 Bi-Pap 15.00 60 05/22/16 20:00 71 05/22/16 20:00 97.8 71 26 118/69 95 05/22/16 19:00 71 05/22/16 18:00 71 05/22/16 17:00 71 05/22/16 16:06 96 60 05/22/16 16:00 71 05/22/16 15:00 71 05/22/16 15:00 96.0 73 25 106/76 93 05/22/16 15:00 93 Bi-Pap 15.00 60 05/22/16 14:00 71 Intake & Output 05/23/16 05/23/16 07:00 19:00 Intake Total 264 ml Output Total 150 ml Balance 114 ml Intake Oral 240 ml IV Total 24 ml Output Urine Total 150 ml # Bowel Movements 0 Physical Exam CONSTITUTIONAL/GENERAL: This is an obese patient, in ICU, on specialty bed, tachypneic, no apparent distress. TUBES/LINES/DRAINS: Peripheral IV right forearm, Tavares catheter, specialty air bed, bIPAP mask SKIN: No jaundice, rashes, or lesions. Multiple areas of ecchymosis on upper extremities. No wounds seen anteriorly. Skin temperature appropriate. Slight cyanosis to fingernails beds. NECK: Trachea midline. Supple, nontender. No palpable thyroid enlargement or nodularity. CARDIOVASCULAR: Irregular rate and rhythm, heart sounds difficult to auscultate over breath sounds. Peripheral pulses symmetric. + General edema to peripheral. RESPIRATORY/CHEST: Symmetric, mildly labored respirations on BiPAP. Tachypneic. Course air movement throughout, decreased breath sounds to bases, though no wheezes or crackles heard. Breath sounds equal bilaterally. GASTROINTESTINAL: Abdomen soft, obese, nontender, nondistended. No hepato- splenomegaly, or palpable masses. No guarding. Bowel sounds present. GENITOURINARY: Without palpable bladder distension. Tavares catheter in place clear concentrated yellow urine. NEUROLOGICAL: Awake and alert. Mostly Oriented, appropriate seems to have reasonable insight. Limited verbalization/conversation due to BiPAP mask. Cooperative. Moves all 4 extremities with generalized weakness. PSYCHIATRIC: + Obvious tachypnea. No apparent hallucinations or other psychotic thought process. Diagnostic Tests Laboratory Laboratory Tests Test 05/21/16 05/22/16 05/23/16 03:20 07:30 05:15 White Blood Count 9.0 TH/MM3 9.6 TH/MM3 (4.0-11.0) (4.0-11.0) Red Blood Count 3.89 MIL/MM3 4.23 MIL/MM3 (4.00-5.30) (4.00-5.30) Hemoglobin 12.6 GM/DL 13.7 GM/DL (11.6-15.3) (11.6-15.3) Hematocrit 38.4 % 41.0 % (35.0-46.0) (35.0-46.0) Mean Corpuscular Volume 98.6 FL 97.0 FL (80.0-100.0) (80.0-100.0) Mean Corpuscular Hemoglobin 32.4 PG 32.4 PG (27.0-34.0) (27.0-34.0) Mean Corpuscular Hemoglobin 32.8 % 33.4 % Concent (32.0-36.0) (32.0-36.0) Red Cell Distribution Width 15.8 % 15.7 % (11.6-17.2) (11.6-17.2) Platelet Count 137 TH/MM3 145 TH/MM3 (150-450) (150-450) Mean Platelet Volume 10.8 FL 11.0 FL (7.0-11.0) (7.0-11.0) Neutrophils (%) (Auto) 81.2 % 83.7 % (16.0-70.0) (16.0-70.0) Lymphocytes (%) (Auto) 5.0 % 5.4 % (9.0-44.0) (9.0-44.0) Monocytes (%) (Auto) 11.2 % 8.9 % (0.0-8.0) (0.0-8.0) Eosinophils (%) (Auto) 2.4 % (0.0-4.0) 1.3 % (0.0-4.0) Basophils (%) (Auto) 0.2 % (0.0-2.0) 0.7 % (0.0-2.0) Neutrophils # (Auto) 7.3 TH/MM3 8.0 TH/MM3 (1.8-7.7) (1.8-7.7) Lymphocytes # (Auto) 0.5 TH/MM3 0.5 TH/MM3 (1.0-4.8) (1.0-4.8) Monocytes # (Auto) 1.0 TH/MM3 0.8 TH/MM3 (0-0.9) (0-0.9) Eosinophils # (Auto) 0.2 TH/MM3 0.1 TH/MM3 (0-0.4) (0-0.4) Basophils # (Auto) 0.0 TH/MM3 0.1 TH/MM3 (0-0.2) (0-0.2) CBC Comment DIFF FINAL DIFF FINAL Differential Comment Prothrombin Time 34.8 SEC 35.8 SEC 37.5 SEC (9.8-11.6) (9.8-11.6) (9.8-11.6) Prothromb Time International 3.0 RATIO 3.1 RATIO 3.2 RATIO Ratio Sodium Level 138 MEQ/L 139 MEQ/L (136-145) (136-145) Potassium Level 4.0 MEQ/L 4.5 MEQ/L (3.5-5.1) (3.5-5.1) Chloride Level 100 MEQ/L 98 MEQ/L (98-107) (98-107) Carbon Dioxide Level 30.7 MEQ/L 31.1 MEQ/L (21.0-32.0) (21.0-32.0) Anion Gap 7 MEQ/L (5-15) 10 MEQ/L (5-15) Blood Urea Nitrogen 81 MG/DL (7-18) 89 MG/DL (7-18) Creatinine 2.25 MG/DL 2.45 MG/DL (0.50-1.00) (0.50-1.00) Estimat Glomerular Filtration 21 ML/MIN (>89) 19 ML/MIN (>89) Rate Random Glucose 132 MG/DL 136 MG/DL (74-106) (74-106) Calcium Level 8.3 MG/DL 8.7 MG/DL (8.5-10.1) (8.5-10.1) Hematology Comments Phosphorus Level 3.9 MG/DL (2.5-4.9) Total Protein 6.1 GM/DL (6.0-7.6) Albumin 3.39 GM/DL (3.50-5.00) Albumin/Globulin Ratio 1.25 (1.39-2.23) Snbca-8-Vxckmloyx 0.27 GM/DL (0.11-0.29) Jzjaq-3-Iejtapvbw 0.97 GM/DL (0.22-1.00) Beta Globulins 0.75 GM/DL (0.53-1.03) Gamma Globulins 0.71 GM/DL (0.50-1.39) Result Diagram: 05/23/16 0515 05/23/16 0515 Imaging Last Impressions Renal Ultrasound 05/22/16 0000 Signed Impressions: Service Date/Time: Sunday, May 22, 2016 20:51 - CONCLUSION: 1. Hyperechoic kidneys characteristic of medical renal disease. No hydronephrosis. Cyrus Espinoza MD Chest X-Ray 05/22/16 0000 Signed Impressions: Service Date/Time: Sunday, May 22, 2016 13:22 - CONCLUSION: 1. Cardiomegaly with mild congestive failure. 2. Consolidative changes left base. Luis Miguel Russell MD FACR Assessment and Plan Disease Oriented Problem List: (1) Pulmonary infiltrate (2) Atrial fibrillation (3) CHF (congestive heart failure) (4) COPD (5) Acute respiratory failure (6) Hypothyroid (7) Acute on chronic kidney failure (8) Coag negative Staphylococcus bacteremia Symptom Scale: (1) Anxiety 0-10 Scale: Unable to quantify (2) Dyspnea 0-10 Scale: Unable to quantify (3) Pain 0-10 Scale: Unable to quantify Pertinent Non-Medical Issues Psychosocial: . Lives in an adult senior apartment building. Supported by her niece Bela. 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 Legal:Patient is currently able to participate and make her own decisions. She does have healthcare surrogate documents at home unable to access those at this time. Completed new designation today 05/22 naming her niece Bela as healthcare surrogate. Ethical issues impacting care: Important Contacts Minda Mead [phone] . Prognosis This patient was admitted for CHF exacerbation, systolic heart failure. Respiratory status has fluctuated requiring BiPAP alternating with high FiO2 (60 %). On chronic O2 at home. Remains high risk for further complications and respiratory setback including intubation. May be appropriate for hospice if goals compatible. . Code Status: Full Code Plan * Legal decision maker: Patient currently capacitated and able to make her own decisions. Has designated her niece Bela as HCS. * Goals: Goals are currently aggressive, patient wishes to continue to maximize medical treatments available to return to prior state. She does with to avoid intubation however is in agreement with a trial of mechanical ventilation if her condition requires. She is not certain how long she would want to continue the ventilator course if required. She agrees to let me call her niece to provide medical update tomorrow. * CODE STATUS: Full code * SYMPTOMS: --Anxiety-multifactorial, likely related to COPD, worsening respiratory failure during acute hospitalization requiring BiPAP. Noted patient on Paxil regularly at home. Patient allergies reported as all benzodiazepines, Valium. Not sure if this is true allergy?//Reaction is rapid heartbeat. Could consider low-dose opiates ie 0.25mg hydromorphone Q 6-8 hours PRN to treat tachypnea, decrease respiratory drive which may in turn decrease associated anxiety.Home paxil has been continued-- > consider increasing dose to 20 mg, though this will not offer any relief in the short term -- tachypnea: Multifactorial, patient with acute heart failure,+ COPD. Ongoing Tachypnea/anxiety. Continue maximize medical treatment, Bumex drip being added today by medical attending. on BIPAP FiO2 60%. Could consider low- dose opiates prn in lieu of benzodiazepine. (See above). CT chest pending-- pt unable to tolerate lying flat currently. --Pain: History of arthritis, note does not report on any chronic pain medications. Reports chronic, generalized aches and pains. Has available prn [place]--sparing use 1-2 doses per day, will continue to monitor requirements/ effectiveness. Today during my exam endorses generalized pain though unable to reach or further qualify. Indicates pain pill effective. * Palliative care will continue to follow during hospital course as condition evolves, to assist patient/decision-maker with understanding of medical conditions, weighing benefits/burdens of treatment options, for clarification of goals of treatment. Additionally will assist with any symptoms of palliative concern Attestation To help prompt me to consider important information that might be impacting today's encounter and assessment, information from prior notes written by myself or my colleagues may have been "brought forward" into today's note. My signature on this note, however, is an attestation that I personally performed the exam, history, and/or decision-making noted today, and, unless otherwise indicated, the interactions with patient, family, and staff as well as the review of records all occurred today. I also attest that the listed assessment and stated plan reflect my best clinical judgment today based on the combination of historical information, prior notes, and today's exam/ interactions. When time spent is documented, it refers only to time spent today by the signer, or if indicated, combined time spent today by collaborating physician/nurse practitioner. Debbie Rodríguez May 23, 2016 13:38
--- NOTE | 2016-05-23 17:33 | HHI.PR ---
Subjective Remarks Patient still complaining of shortness of breath Patient is still on BiPAP. Creatinine is trending up. Patient feels anxious. During output seems to be decreasing Objective Vitals Vital Signs Date Time Temp Pulse Resp B/P Pulse Ox O2 Delivery O2 Flow Rate FiO2 05/23/16 15:00 71 05/23/16 14:00 72 05/23/16 13:00 71 05/23/16 12:00 71 05/23/16 11:00 95.8 71 25 98/63 93 05/23/16 11:00 93 Bi-Pap 15.00 60 05/23/16 11:00 71 05/23/16 10:00 72 05/23/16 09:00 76 05/23/16 08:00 73 05/23/16 07:46 93 60 05/23/16 07:00 95.9 74 28 118/64 96 05/23/16 07:00 70 05/23/16 07:00 96 Bi-Pap 15.00 60 05/23/16 06:13 70 05/23/16 05:00 69 05/23/16 04:50 92 60 05/23/16 04:08 88 05/23/16 03:37 95 Bi-Pap 15.00 60 05/23/16 03:00 97.6 70 30 105/87 93 05/23/16 03:00 71 05/23/16 02:00 70 05/23/16 01:00 68 05/23/16 00:42 92 60 05/23/16 00:00 69 05/22/16 23:02 70 05/22/16 23:00 97.8 70 26 101/65 93 05/22/16 23:00 95 Bi-Pap 15.00 60 05/22/16 22:00 89 05/22/16 21:00 72 05/22/16 20:55 95 BiPAP 60 05/22/16 20:55 95 60 05/22/16 20:00 95 Bi-Pap 15.00 60 05/22/16 20:00 71 05/22/16 20:00 97.8 71 26 118/69 95 05/22/16 19:00 71 05/22/16 18:00 71 I/O 05/22/16 05/22/16 05/22/16 05/23/16 05/23/16 05/23/16 07:00 15:00 23:00 07:00 15:00 23:00 Intake Total 400 ml 704 ml 264 ml Output Total 300 ml 350 ml 150 ml Balance 100 ml 354 ml 114 ml Intake Oral 400 ml 600 ml 240 ml IV Total 0 ml 104 ml 24 ml Output Urine Total 300 ml 350 ml 150 ml # Bowel Movements 0 0 0 Result Diagram: 05/23/16 0515 05/23/16 0515 Imaging Last Impressions Renal Ultrasound 05/22/16 0000 Signed Impressions: Service Date/Time: Sunday, May 22, 2016 20:51 - CONCLUSION: 1. Hyperechoic kidneys characteristic of medical renal disease. No hydronephrosis. Cyrus Espinoza MD Chest X-Ray 05/22/16 0000 Signed Impressions: Service Date/Time: Sunday, May 22, 2016 13:22 - CONCLUSION: 1. Cardiomegaly with mild congestive failure. 2. Consolidative changes left base. Luis Miguel Russell MD FACR Objective Remarks GENERAL: AOX3, NAD. SKIN: Warm and dry. HEAD: Normocephalic. EYES: No scleral icterus. No injection or drainage. NECK: Supple, trachea midline. No JVD or lymphadenopathy. CARDIOVASCULAR: Regular rate and rhythm without murmurs, gallops, or rubs. RESPIRATORY: Breath sounds equal bilaterally. No accessory muscle use. Breath sounds diminished in the bibasilar space. GASTROINTESTINAL: Abdomen soft, non-tender, nondistended. MUSCULOSKELETAL: No cyanosis. trace edema in bilateral lower ext, tender to palpation. BACK: Nontender without obvious deformity. No CVA tenderness. Procedures Echocardiogram 05/15/2016 SUMMARY - Left ventricle: The cavity size was mildly dilated. Wall thickness was increased in a pattern of mild LVH. Systolic function was moderately reduced. The estimated ejection fraction was 35%. Wall motion was normal; there were no regional wall motion abnormalities. - Aortic valve: Mildly calcified annulus. Trileaflet; mildly thickened, mildly calcified leaflets. Mild regurgitation. 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 - Left atrium: The atrium was mildly dilated. - Right ventricle: The cavity size was severely dilated. Wall thickness was normal. - Right atrium: The atrium was dilated. - Tricuspid valve: Wide-open regurgitation. Medications and IVs Current Medications Medications (Trade) Dose Ordered Sig/Yola Route Start Time Stop Time Status Last Admin (NS Flush) 2 ml UNSCH PRN IVF 05/13/16 04:15 (NS Flush) 2 ml BID IVF 05/13/16 09:00 05/23/16 09:44 (Tylenol) 650 mg Q6H PRN PO 05/13/16 04:15 (Peridex 0.12% Liq) 15 ml BID@08,20 MT 05/13/16 08:00 05/21/16 08:00 (Protonix Inj) 40 mg DAILY IV 05/13/16 09:00 05/23/16 09:44 Miscellaneous Information 1 Q361D XX 05/13/16 04:15 (Chlorhexidine 2% Cloth) Taper DAILY@04 TOP 05/14/16 04:00 05/10/17 03:59 05/15/16 04:00 (Chlorhexidine 2% Cloth) 3 pack UNSCH PRN TOP 05/13/16 04:15 (Zyloprim) 100 mg DAILY PO 05/13/16 09:00 05/23/16 09:43 (Cordarone) 200 mg DAILY PO 05/13/16 09:00 05/23/16 09:43 (Coreg) 6.25 mg BID PO 05/13/16 09:00 05/23/16 09:43 (Molt 5-325 Mg) 1 tab Q6H PRN PO 05/13/16 04:30 05/23/16 09:44 (Aldactone) 25 mg DAILY PO 05/13/16 09:00 05/23/16 09:43 (Synthroid) 100 mcg DAILY@06 PO 05/13/16 06:00 05/23/16 06:24 (Coumadin) 2.5 mg Fr@16 PO 05/19/16 16:00 Hold 05/19/16 19:09 Warfarin Sodium 5 mg 5 mg SuMoTuWeThSa@16 PO 05/13/16 16:00 Hold 05/18/16 16:08 (Coumadin Consult Pharmacy) 0 ml @ 0 mls/hr UNSCH OTHER 05/15/16 10:00 Nystatin 1 applic 1 applic Q8HR TOPICAL 05/16/16 14:00 05/23/16 14:00 (Bumex Inj) 100 ml @ 2 mls/hr CONTINUOUS IV 05/22/16 13:15 05/22/16 15:28 (Paxil) 10 mg DAILY PO 05/24/16 09:00 (Pill Splitter) 1 ea UNSCH PRN OTHER 05/23/16 18:00 (Albumin 25% Inj) 25 gm Q12H IV 05/23/16 18:00 05/23/16 19:54 A/P Problem List: (1) Acute hypoxemic respiratory failure ICD Code: J96.01 Status: Acute Plan: Currently on bipap - continue sp Solumedrol treatment - no wheezing at this time Pulmonary and ID Following. Patient sp Rx with Cefepime and Azithromycin. ID switched abx to Levaquin 250 mg po Q 3 days. Check CXR - shows bilateral effusions and cardiomegaly. Consider CT chest pending palliative care meeting with family. (2) Acute systolic congestive heart failure ICD Code: I50.21 Status: Resolved Plan: Patient bweing diuresed on Bumex 1 mg IV BID, patient with decreasing urine output and positive fluid balance. Will DC IV bumex and start in IV Bumex drip. Continue to monitor strict I's and O's. patient with decreased urine output, I will set the patient IV albumin. Follow-up nephrology recommendations. (3) Coag negative Staphylococcus bacteremia ICD Code: R78.81 Status: Acute Plan: fu ID recommendations Patient with Levaquin as per ID (4) Hyperglycemia ICD Code: R73.9 Status: Acute Plan: Blood sugars stable - Continue SSI with insulin (5) Fungal infection of skin ICD Code: B36.9 Status: Acute Plan: Continue nystatin- seems to be improved (6) JASON (acute kidney injury) ICD Code: N17.9 Status: Acute Plan: wosening JASON. Appreciate nephrology recommendations. Continue Bumex drip, continue IV fluids and monitor BUN/creatinine, strict I stenosis (7) Hypothyroid ICD Code: E03.9 Status: Acute Plan: continue levothyroxine Ayaan Chavez MD May 23, 2016 17:33
[2016-05-23] MEDS ORDERED: PILL SPLITTER OTHER PRN (18:00)
--- NOTE | 2016-05-23 19:51 | HHI.NPPN ---
Subjective History of Present Illness 80 year old with COPD/CHF ARF Review of Systems Respiratory Lungs: SOB Objective Data Data 05/22/16 05/23/16 19:00 07:00 Intake Total 704 ml 264 ml Output Total 350 ml 150 ml Balance 354 ml 114 ml Intake Oral 600 ml 240 ml IV Total 104 ml 24 ml Output Urine Total 350 ml 150 ml # Bowel Movements 0 0 Vital Signs Date Time Temp Pulse Resp B/P Pulse Ox O2 Delivery O2 Flow Rate FiO2 05/23/16 18:00 74 05/23/16 17:00 71 05/23/16 16:55 92 60 05/23/16 16:00 72 05/23/16 15:00 92 Bi-Pap 15.00 60 05/23/16 15:00 96.3 72 28 108/58 92 05/23/16 15:00 71 05/23/16 14:00 72 05/23/16 13:00 71 05/23/16 12:00 71 05/23/16 11:38 93 60 05/23/16 11:00 95.8 71 25 98/63 93 05/23/16 11:00 93 Bi-Pap 15.00 60 05/23/16 11:00 71 05/23/16 10:00 72 05/23/16 09:00 76 05/23/16 08:00 73 05/23/16 07:46 93 60 05/23/16 07:00 95.9 74 28 118/64 96 05/23/16 07:00 70 05/23/16 07:00 96 Bi-Pap 15.00 60 05/23/16 06:13 70 05/23/16 05:00 69 05/23/16 04:50 92 60 05/23/16 04:08 88 05/23/16 03:37 95 Bi-Pap 15.00 60 05/23/16 03:00 97.6 70 30 105/87 93 05/23/16 03:00 71 05/23/16 02:00 70 05/23/16 01:00 68 05/23/16 00:42 92 60 05/23/16 00:00 69 05/22/16 23:02 70 05/22/16 23:00 97.8 70 26 101/65 93 05/22/16 23:00 95 Bi-Pap 15.00 60 05/22/16 22:00 89 05/22/16 21:00 72 05/22/16 20:55 95 BiPAP 60 05/22/16 20:55 95 60 05/22/16 20:00 95 Bi-Pap 15.00 60 05/22/16 20:00 71 05/22/16 20:00 97.8 71 26 118/69 95 -: 05/23/16 0515 05/23/16 0515 Physical Exam General Appearance: Well Developed, Obese Neck Neck Exam: Neck Supple Pulmonary Resp Exam: Rhonchi, Decreased Bases Cardiology CV Exam: Arrhythmia Gastrointestinal/Abdomen GI Exam: Soft, Distended Extremeties Extremities Exam: Moderate Edema Assessment/Plan Problem List: (1) JASON (acute kidney injury) Plan: she has renal dysfunction, UOP remained low I ordered Diamox 500 mg IV she is having edema (2) Acute systolic congestive heart failure Plan: 35% EF (3) Coag negative Staphylococcus bacteremia Plan: ID following Levaquin (4) COPD Plan: On O2 (5) CHF (congestive heart failure) Plan: EF 35% Problem Qualifiers (1) CHF (congestive heart failure): Qualified Code: I50.9 - Acute on chronic congestive heart failure, unspecified congestive heart failure type Jennifer Young MD May 23, 2016 19:51
[2016-05-23] MEDS: ALBUMIN HUMAN 25% 25 GM/100 ML BAGP IV SCH (19:54)
[2016-05-24] VITALS (35 sets, daily range): BP systolic 92–116; BP diastolic 53–68; PULSE 65–80; RESP 22–28; TEMP 96.9–97.7; O2SAT 90–99
[2016-05-24] MEDS: CHLORHEXIDINE GLUCONATE 2 % 1 PACK (2 CLOTHS) TOP SCH (04:00)
[2016-05-24] MEDS: NYSTATIN 100,000 U/GM PWD 15 GM BTL TOPICAL SCH ×3 (06:00→21:55)
[2016-05-24 06:23] LABS: AUTOMATED NEUTROPHIL # 7.9 TH/MM3 (1.8-7.7); BASOPHIL % 0.4 % (0.0-2.0); EOSINOPHIL # 0.1 TH/MM3 (0-0.4); EOSINOPHIL % 1.2 % (0.0-4.0); HEMATOCRIT 42.2 % (35.0-46.0); HEMO FLAGS DIFF FINAL; LYMPHOCYTE # 0.6 TH/MM3 (1.0-4.8); MEAN CELL VOLUME 100.1 FL (80.0-100.0); MEAN CORPUSCULAR HEMOGLOBIN 32.1 PG (27.0-34.0); MONO % 8.6 % (0.0-8.0); NEUT % 83.8 % (16.0-70.0); PLATELET COUNT 177 TH/MM3 (150-450); RED BLOOD COUNT 4.21 MIL/MM3 (4.00-5.30); RED CELL DISTRIBUTION WIDTH 16.1 % (11.6-17.2); WHITE BLOOD COUNT 9.4 TH/MM3 (4.0-11.0)
[2016-05-24] MEDS: ALBUMIN HUMAN 25% 25 GM/100 ML BAGP IV SCH ×2 (06:27→18:30)
[2016-05-24] MEDS: INSULIN ASPART SUPPLEMENTAL SCALE SQ SCH ×4 (06:30→21:00)
[2016-05-24] MEDS: LEVOTHYROXINE SODIUM 100 MCG TAB PO SCH (06:30)
[2016-05-24 06:31] LABS: INTERNATIONAL NORMALIZED RATIO 3.2 RATIO; PROTHROMBIN TIME - PATIENT 36.9 SEC (9.8-11.6)
[2016-05-24 06:37] LABS: ALKALINE PHOSPHATASE 42 U/L (45-117); ALT (GPT) 21 U/L (10-53); ANION GAP 14 MEQ/L (5-15); AST (GOT) 15 U/L (15-37); BLOOD UREA NITROGEN 95 MG/DL (7-18); CHLORIDE 94 MEQ/L (98-107); GLOMERULAR FILTRATION RATE 15 ML/MIN (>89); POTASSIUM 4.6 MEQ/L (3.5-5.1); SODIUM (NA) 137 MEQ/L (136-145); TOTAL BILIRUBIN ADULT 0.8 MG/DL (0.2-1.0)
[2016-05-24] MEDS: CHLORHEXIDINE 0.12% (ORAL KIT) 15 ML CUP MT SCH ×2 (08:47→20:00)
[2016-05-24] MEDS: CARVEDILOL 6.25 MG TAB PO SCH ×2 (08:48→21:55)
[2016-05-24] MEDS: PANTOPRAZOLE SODIUM 40 MG VIAL IV SCH (08:48)
[2016-05-24] MEDS: AMIODARONE 200 MG TAB PO SCH (08:49)
[2016-05-24] MEDS: SPIRONOLACTONE 25 MG TAB PO SCH (08:49)
[2016-05-24] MEDS: ALLOPURINOL 100 MG TAB PO SCH (08:49)
[2016-05-24] MEDS: SODIUM CHLORIDE 0.9% FLUSH 5 ML FLUSH IVF SCH ×2 (08:49→21:00)
[2016-05-24] MEDS: PARoxetine HCL 20 MG TAB PO SCH (09:00)
--- NOTE | 2016-05-24 12:08 | HHI.NPPN ---
Subjective History of Present Illness 80 year old with COPD/CHF ARF Review of Systems Respiratory Lungs: SOB Objective Data Data 05/23/16 05/24/16 19:00 07:00 Intake Total 744 ml 174 ml Output Total 200 ml 150 ml Balance 544 ml 24 ml Intake Oral 720 ml 150 ml IV Total 24 ml 24 ml Output Urine Total 200 ml 150 ml # Bowel Movements 0 0 Vital Signs Date Time Temp Pulse Resp B/P Pulse Ox O2 Delivery O2 Flow Rate FiO2 05/24/16 10:35 99 60 05/24/16 08:15 97.7 80 22 116/68 94 05/24/16 08:15 94 Bi-Pap 15.00 60 05/24/16 07:33 96 60 05/24/16 06:00 68 05/24/16 05:03 68 05/24/16 04:51 90 60 05/24/16 04:00 92 Bi-Pap 15.00 60 05/24/16 04:00 97.7 69 25 112/67 93 05/24/16 04:00 70 05/24/16 03:00 70 05/24/16 02:04 66 05/24/16 01:08 94 60 05/24/16 01:05 69 05/24/16 00:02 67 25 93/58 92 05/24/16 00:01 68 05/23/16 23:59 95 Bi-Pap 15.00 60 05/23/16 23:00 97.6 68 25 116/70 93 05/23/16 23:00 71 05/23/16 22:25 94 60 05/23/16 22:00 73 05/23/16 21:00 71 05/23/16 20:15 90 60 05/23/16 20:00 95 Bi-Pap 15.00 60 05/23/16 20:00 97.6 73 30 101/55 92 05/23/16 20:00 71 05/23/16 19:00 76 05/23/16 18:00 74 05/23/16 17:00 71 05/23/16 16:55 92 60 05/23/16 16:00 72 05/23/16 15:00 92 Bi-Pap 15.00 60 05/23/16 15:00 96.3 72 28 108/58 92 05/23/16 15:00 71 05/23/16 14:00 72 05/23/16 13:00 71 -: 05/24/16 0544 05/24/16 0544 Physical Exam General Appearance: Well Developed, Obese Neck Neck Exam: Neck Supple Pulmonary Resp Exam: Rhonchi, Decreased Bases Cardiology CV Exam: Arrhythmia Gastrointestinal/Abdomen GI Exam: Soft, Distended Extremeties Extremities Exam: Moderate Edema Assessment/Plan Problem List: (1) JASON (acute kidney injury) Plan: she has renal dysfunction, UOP remained low reorder Diamox 500 mg IV daily on Bumex drip at 0.5 mg/hr she has higher creatinine she is having edema may increase Bumex to 1mg /hr (2) Acute systolic congestive heart failure Plan: 35% EF (3) Coag negative Staphylococcus bacteremia Plan: ID following Levaquin (4) COPD Plan: On O2 (5) CHF (congestive heart failure) Plan: EF 35% Problem Qualifiers (1) CHF (congestive heart failure): Qualified Code: I50.9 - Acute on chronic congestive heart failure, unspecified congestive heart failure type Jennifer Young MD May 24, 2016 12:08
--- NOTE | 2016-05-24 13:59 | HHI.PR ---
Subjective Remarks on BiPAP 60% she currently denies any pain Objective Vitals Vital Signs Date Time Temp Pulse Resp B/P Pulse Ox O2 Delivery O2 Flow Rate FiO2 05/24/16 11:00 92 Bi-Pap 15.00 60 05/24/16 11:00 97.2 72 24 112/61 92 05/24/16 10:35 99 60 05/24/16 08:15 97.7 80 22 116/68 94 05/24/16 08:15 94 Bi-Pap 15.00 60 05/24/16 07:33 96 60 05/24/16 06:00 68 05/24/16 05:03 68 05/24/16 04:51 90 60 05/24/16 04:00 92 Bi-Pap 15.00 60 05/24/16 04:00 97.7 69 25 112/67 93 05/24/16 04:00 70 05/24/16 03:00 70 05/24/16 02:04 66 05/24/16 01:08 94 60 05/24/16 01:05 69 05/24/16 00:02 67 25 93/58 92 05/24/16 00:01 68 05/23/16 23:59 95 Bi-Pap 15.00 60 05/23/16 23:00 97.6 68 25 116/70 93 05/23/16 23:00 71 05/23/16 22:25 94 60 05/23/16 22:00 73 05/23/16 21:00 71 05/23/16 20:15 90 60 05/23/16 20:00 95 Bi-Pap 15.00 60 05/23/16 20:00 97.6 73 30 101/55 92 05/23/16 20:00 71 05/23/16 19:00 76 05/23/16 18:00 74 05/23/16 17:00 71 05/23/16 16:55 92 60 05/23/16 16:00 72 05/23/16 15:00 92 Bi-Pap 15.00 60 05/23/16 15:00 96.3 72 28 108/58 92 05/23/16 15:00 71 05/23/16 14:00 72 I/O 05/23/16 05/23/16 05/23/16 05/24/16 05/24/16 05/24/16 07:00 15:00 23:00 07:00 15:00 23:00 Intake Total 264 ml 744 ml 174 ml Output Total 150 ml 200 ml 150 ml Balance 114 ml 544 ml 24 ml Intake Oral 240 ml 720 ml 150 ml IV Total 24 ml 24 ml 24 ml Output Urine Total 150 ml 200 ml 150 ml # Bowel Movements 0 0 0 Result Diagram: 05/24/16 0544 05/24/16 0544 Imaging Last Impressions Renal Ultrasound 05/22/16 0000 Signed Impressions: Service Date/Time: Sunday, May 22, 2016 20:51 - CONCLUSION: 1. Hyperechoic kidneys characteristic of medical renal disease. No hydronephrosis. Cyrus Espinoza MD Chest X-Ray 05/22/16 0000 Signed Impressions: Service Date/Time: Sunday, May 22, 2016 13:22 - CONCLUSION: 1. Cardiomegaly with mild congestive failure. 2. Consolidative changes left base. Luis Miguel Russell MD FACR Objective Remarks awake and alert on BiPAP awake anicteric no nuchal rigidity decreased breath sounds, no rales regular rhythm abdomen- flabby soft larson in place + edema moves all extremities limited Procedures Echocardiogram 05/15/2016 SUMMARY - Left ventricle: The cavity size was mildly dilated. Wall thickness was increased in a pattern of mild LVH. Systolic function was moderately reduced. The estimated ejection fraction was 35%. Wall motion was normal; there were no regional wall motion abnormalities. - Aortic valve: Mildly calcified annulus. Trileaflet; mildly thickened, mildly calcified leaflets. Mild regurgitation. 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 - Left atrium: The atrium was mildly dilated. - Right ventricle: The cavity size was severely dilated. Wall thickness was normal. - Right atrium: The atrium was dilated. - Tricuspid valve: Wide-open regurgitation. Urinary Catheter: Yes Assessment to: Continue Larson insert reason: Prolonged Immobilization A/P Assessment and Plan Acute hypoxemic respiratory failure ICD Code: J96.01 Status: Acute Plan: Currently on bipap - continue sp Solumedrol treatment - no wheezing at this time on BiPap. Pulmonary ff (2) Acute systolic congestive heart failure- EF 30%. Moderate Mitral valve stenosis ICD Code: I50.21 Status: on Bumex drip. amiodarone, Coreg. Aldactone On coumadin . INR 3.2- on hold. Cardiology ff (3) Coag negative Staphylococcus bacteremia ICD Code: R78.81 Status: Acute Plan: fu ID recommendations S/P Levaquin as per ID (4) Hyperglycemia ICD Code: R73.9 Status: Acute Plan: Blood sugars stable - Continue SSI with insulin (5) Fungal infection of skin ICD Code: B36.9 Status: Acute Plan: Continue nystatin- seems to be improved (6) JASON (acute kidney injury) ICD Code: N17.9 Status: Acute Plan: worsening JASON. Oliguric Appreciate nephrology recommendations. Continue Bumex drip, (7) Hypothyroid ICD Code: E03.9 Status: Acute Plan: continue levothyroxine Lovenox/PPI for prophylaxis Akhil Stout MD May 24, 2016 13:59 (5) Fungal infection of skin ICD Code: B36.9 Status: Acute Plan: Continue nystatin- seems to be improved (6) JASON (acute kidney injury) ICD Code: N17.9 Status: Acute Plan: worsening JASON. Oliguric Appreciate nephrology recommendations. Continue Bumex drip, (7) Hypothyroid ICD Code: E03.9 Status: Acute Plan: continue levothyroxine Lovenox/PPI for prophylaxis Akhil Stout MD May 24, 2016 13:59
--- NOTE | 2016-05-24 15:01 | HHI.HCPN ---
Reason for visit a. To assist with evaluation and management of symptoms including: Dyspnea, anxiety, chronic pain b. To assist medical decision maker(s) with: better understanding of current medical conditions; weighing benefits/burdens of medical treatment options; making medical treatment decisions. Subjective/Interval History Pt seen today to follow up on anxiety/comfort, goals of treatment. She has remained in ICU, on bipap 60% fio2, only removing it for sips of fluid and medication. Has not been able to obtain CT chest due to unable to tolerate laying flat for. Has remained on Bumex drip, renal functions continue to elevate BUN 95/creatinine 2.96. Urine output remains low, decreasing. Nephrology added Diamox. Patient seen in room no visitors present. She is on BiPAP which significantly limits her conversation. She appears more lethargic today seems very fatigue much less conversation.Discussed with her as best as possible while still on BiPAP. Review with her past few days of events, addition of Bumex, the current therapies are maximized and we are not seeing clinical improvement. She agrees and seems to understand that she is not getting better. I gently explore with her that I am concerned given current maximized therapies and lack of improvement thus far that she may continue to experience clinical decline leading to mechanical ventilation. Again review intubation/CODE STATUS with her and ask her if she would desire to be placed on mechanical vent. Alternatively explore that If she continued to have clinical deterioration then she would also have the option to forego further aggressive/invasive treatments and elect comfort/hospice treatments. She tells me she doesn't know. She does endorse that I may call her niece Bela today. Discussed with primary nurse. Following exam call to hardik Cramer, voicemail left. . Family/friend interactions Call back later from niece--> spoke with her at length on phone discussion included: * Palliative care role * Patient cognitive and functional status in the months to weeks prior to this admission--niece details that in the weeks to months prior to this patient had been having significant decline though patient would deny any need for increased assistance etc. She had counseling aging visits a few times a week as well as other aids and assistants who helped her in her adult apartment complex. * Patient and/or family understanding of current medical conditions prognosis treatment options and treatments--review with niece at length patient's multiple medical conditions most significant at this point cardiac, renal, pulmonary; review high risk for further deterioration, limited treatment options at this time. Alternatively review with her that patient has option to transition to comfort focus if no further aggressive/invasive treatments are desired * Overall condition, prognosis * CODE STATUS[] review with her that patient has elected full code at this point * Palliative care contact information provided; she is going to try to arrange a flight from [place] in the coming days but needs to make work family etc. arrangements once ongoing updates from palliative until that time. . Advance Directives Living Will: Completed, but not made available Health Care Surrogate: Completed, but not made available (completed new healthcare surrogate today 05/22 naming hardik Cramer) Advance Directive Specifics Date completed: 05/22/16 Health Care Surrogate(s): completed new healthcare surrogate 05/22 naming hardik Cramer Objective Vital Signs Date Time Temp Pulse Resp B/P Pulse Ox O2 Delivery O2 Flow Rate FiO2 05/24/16 11:00 92 Bi-Pap 15.00 60 05/24/16 11:00 97.2 72 24 112/61 92 05/24/16 10:35 99 60 05/24/16 08:15 97.7 80 22 116/68 94 05/24/16 08:15 94 Bi-Pap 15.00 60 05/24/16 07:33 96 60 05/24/16 06:00 68 05/24/16 05:03 68 05/24/16 04:51 90 60 05/24/16 04:00 92 Bi-Pap 15.00 60 05/24/16 04:00 97.7 69 25 112/67 93 05/24/16 04:00 70 05/24/16 03:00 70 05/24/16 02:04 66 05/24/16 01:08 94 60 05/24/16 01:05 69 05/24/16 00:02 67 25 93/58 92 05/24/16 00:01 68 05/23/16 23:59 95 Bi-Pap 15.00 60 05/23/16 23:00 97.6 68 25 116/70 93 05/23/16 23:00 71 05/23/16 22:25 94 60 05/23/16 22:00 73 05/23/16 21:00 71 05/23/16 20:15 90 60 05/23/16 20:00 95 Bi-Pap 15.00 60 05/23/16 20:00 97.6 73 30 101/55 92 05/23/16 20:00 71 05/23/16 19:00 76 05/23/16 18:00 74 05/23/16 17:00 71 05/23/16 16:55 92 60 05/23/16 16:00 72 05/23/16 15:00 92 Bi-Pap 15.00 60 05/23/16 15:00 96.3 72 28 108/58 92 05/23/16 15:00 71 Intake & Output 05/24/16 05/24/16 07:00 19:00 Intake Total 174 ml Output Total 150 ml Balance 24 ml Intake Oral 150 ml IV Total 24 ml Output Urine Total 150 ml # Bowel Movements 0 Physical Exam CONSTITUTIONAL/GENERAL: This is an obese patient, in ICU, on specialty bed, tachypneic, fatigues easily TUBES/LINES/DRAINS: Peripheral IV right forearm, Tavares catheter, specialty air bed, bIPAP mask CARDIOVASCULAR: Irregular rate and rhythm, heart sounds difficult to auscultate over breath sounds. Peripheral pulses symmetric. + General edema to peripheral. RESPIRATORY/CHEST: Symmetric, mildly labored respirations on BiPAP. Tachypneic. Course air movement throughout, decreased breath sounds to bases, though no wheezes or crackles heard. Breath sounds equal bilaterally. GASTROINTESTINAL: Abdomen soft, obese, nontender, nondistended. No hepato- splenomegaly, or palpable masses. No guarding. Bowel sounds present. GENITOURINARY: Without palpable bladder distension. Tavares catheter in place clear concentrated yellow urine. NEUROLOGICAL: Lethargic today. Partially oriented difficult to fully assess due to limited verbalization/conversation due to BiPAP mask. Cooperative. Moves all 4 extremities with generalized weakness. PSYCHIATRIC: + Obvious tachypnea. No apparent hallucinations or other psychotic thought process. Diagnostic Tests Laboratory Laboratory Tests Test 05/22/16 05/23/16 05/24/16 07:30 05:15 05:44 Prothrombin Time 35.8 SEC 37.5 SEC 36.9 SEC (9.8-11.6) (9.8-11.6) (9.8-11.6) Prothromb Time International 3.1 RATIO 3.2 RATIO 3.2 RATIO Ratio White Blood Count 9.6 TH/MM3 9.4 TH/MM3 (4.0-11.0) (4.0-11.0) Red Blood Count 4.23 MIL/MM3 4.21 MIL/MM3 (4.00-5.30) (4.00-5.30) Hemoglobin 13.7 GM/DL 13.5 GM/DL (11.6-15.3) (11.6-15.3) Hematocrit 41.0 % 42.2 % (35.0-46.0) (35.0-46.0) Mean Corpuscular Volume 97.0 FL 100.1 FL (80.0-100.0) (80.0-100.0) Mean Corpuscular Hemoglobin 32.4 PG 32.1 PG (27.0-34.0) (27.0-34.0) Mean Corpuscular Hemoglobin 33.4 % 32.0 % Concent (32.0-36.0) (32.0-36.0) Red Cell Distribution Width 15.7 % 16.1 % (11.6-17.2) (11.6-17.2) Platelet Count 145 TH/MM3 177 TH/MM3 (150-450) (150-450) Mean Platelet Volume 11.0 FL 10.7 FL (7.0-11.0) (7.0-11.0) Neutrophils (%) (Auto) 83.7 % 83.8 % (16.0-70.0) (16.0-70.0) Lymphocytes (%) (Auto) 5.4 % 6.0 % (9.0-44.0) (9.0-44.0) Monocytes (%) (Auto) 8.9 % (0.0-8.0) 8.6 % (0.0-8.0) Eosinophils (%) (Auto) 1.3 % (0.0-4.0) 1.2 % (0.0-4.0) Basophils (%) (Auto) 0.7 % (0.0-2.0) 0.4 % (0.0-2.0) Neutrophils # (Auto) 8.0 TH/MM3 7.9 TH/MM3 (1.8-7.7) (1.8-7.7) Lymphocytes # (Auto) 0.5 TH/MM3 0.6 TH/MM3 (1.0-4.8) (1.0-4.8) Monocytes # (Auto) 0.8 TH/MM3 0.8 TH/MM3 (0-0.9) (0-0.9) Eosinophils # (Auto) 0.1 TH/MM3 0.1 TH/MM3 (0-0.4) (0-0.4) Basophils # (Auto) 0.1 TH/MM3 0.0 TH/MM3 (0-0.2) (0-0.2) CBC Comment DIFF FINAL DIFF FINAL Differential Comment Hematology Comments Sodium Level 139 MEQ/L 137 MEQ/L (136-145) (136-145) Potassium Level 4.5 MEQ/L 4.6 MEQ/L (3.5-5.1) (3.5-5.1) Chloride Level 98 MEQ/L 94 MEQ/L (98-107) (98-107) Carbon Dioxide Level 31.1 MEQ/L 29.0 MEQ/L (21.0-32.0) (21.0-32.0) Anion Gap 10 MEQ/L (5-15) 14 MEQ/L (5-15) Blood Urea Nitrogen 89 MG/DL (7-18) 95 MG/DL (7-18) Creatinine 2.45 MG/DL 2.96 MG/DL (0.50-1.00) (0.50-1.00) Estimat Glomerular Filtration 19 ML/MIN (>89) 15 ML/MIN (>89) Rate Random Glucose 136 MG/DL 152 MG/DL (74-106) (74-106) Calcium Level 8.7 MG/DL 9.1 MG/DL (8.5-10.1) (8.5-10.1) Phosphorus Level 3.9 MG/DL (2.5-4.9) Total Protein 6.1 GM/DL 6.6 GM/DL (6.0-7.6) (6.4-8.2) Albumin 3.39 GM/DL 3.3 GM/DL (3.50-5.00) (3.4-5.0) Albumin/Globulin Ratio 1.25 (1.39-2.23) Rjvvv-4-Elxkwdmwj 0.27 GM/DL (0.11-0.29) Xmawq-8-Shjtozmcm 0.97 GM/DL (0.22-1.00) Beta Globulins 0.75 GM/DL (0.53-1.03) Gamma Globulins 0.71 GM/DL (0.50-1.39) Anti-Nuclear Antibody Screen NEG (NEG) Total Bilirubin 0.8 MG/DL (0.2-1.0) Aspartate Amino Transf 15 U/L (15-37) (AST/SGOT) Alanine Aminotransferase 21 U/L (10-53) (ALT/SGPT) Alkaline Phosphatase 42 U/L (45-117) Result Diagram: 05/24/16 0544 05/24/16 0544 Imaging Last Impressions Renal Ultrasound 05/22/16 0000 Signed Impressions: Service Date/Time: Sunday, May 22, 2016 20:51 - CONCLUSION: 1. Hyperechoic kidneys characteristic of medical renal disease. No hydronephrosis. Cyrus Espinoza MD Chest X-Ray 05/22/16 0000 Signed Impressions: Service Date/Time: Sunday, May 22, 2016 13:22 - CONCLUSION: 1. Cardiomegaly with mild congestive failure. 2. Consolidative changes left base. Luis Miguel Russell MD FACR Assessment and Plan Disease Oriented Problem List: (1) Pulmonary infiltrate (2) Atrial fibrillation (3) CHF (congestive heart failure) (4) COPD (5) Acute respiratory failure (6) Hypothyroid (7) Acute on chronic kidney failure (8) Coag negative Staphylococcus bacteremia Symptom Scale: (1) Anxiety 0-10 Scale: Unable to quantify (2) Dyspnea 0-10 Scale: Unable to quantify (3) Pain 0-10 Scale: Unable to quantify Pertinent Non-Medical Issues Psychosocial: . Lives in an adult senior apartment building. Supported by her niece Bela. Spiritual: Does not desire professor of philosophy support. Legal:Patient is currently able to participate and make her own decisions. She does have healthcare surrogate documents at home unable to access those at this time. Completed new designation today 05/22 naming her niece Bela as healthcare surrogate. Ethical issues impacting care: Important Contacts Hardik Mead [phone] . Prognosis This patient was admitted for CHF exacerbation, systolic heart failure. Respiratory status has fluctuated requiring BiPAP alternating with high FiO2 (60 %). On chronic O2 at home. Remains high risk for further complications and respiratory setback including intubation. May be appropriate for hospice if goals compatible. . Code Status: Full Code Plan * Legal decision maker: Patient currently capacitated and able to make her own decisions, though this may be deteriorating as patient's respiratory status deteriorates. Has designated her niece Bela as HCS. * Goals: Goals are currently aggressive, patient wishes to continue to maximize medical treatments available to return to prior state. She does with to avoid intubation however is in agreement with a trial of mechanical ventilation if her condition requires. She is not certain how long she would want to continue the ventilator course if required. 05/24/16--I spoke with patient at bedside, I attempted to review CODE STATUS with her she is more lethargic today with limited participation. Not sure if she would proceed with intubation at this time. I did review with her comfort measures she says she doesn't know what she wants to do. Spoke with her niece at length today via phone, she seems to understand severity of current condition and overall prognosis. She is going to make arrangements to come to [place] from [place] in the coming days though needs to get her own affairs in order before she can travel here. She wishes to remain in contact with palliative daily until this occurs. She wishes to talk further with her aunt regarding comfort focus measures, she feels her aunt has had significant decline in the past few months and should seek comfort treatment only. * CODE STATUS: Full code * SYMPTOMS: --Anxiety-multifactorial, likely related to COPD, worsening respiratory failure during acute hospitalization requiring BiPAP. Noted patient on Paxil regularly at home. Patient allergies reported as all benzodiazepines, Valium. Not sure if this is true allergy?//Reaction is rapid heartbeat. Could consider low-dose opiates ie 0.25mg hydromorphone Q 6-8 hours PRN to treat tachypnea, decrease respiratory drive which may in turn decrease associated anxiety.Home paxil has been continued-- > consider increasing dose to 20 mg, though this will not offer any relief in the short term -- tachypnea: Multifactorial, patient with acute heart failure,+ COPD. Ongoing Tachypnea/anxiety. Continue maximize medical treatment, Bumex drip being added today by medical attending. on BIPAP FiO2 60%. Could consider low- dose opiates prn in lieu of benzodiazepine. (See above). CT chest pending-- pt unable to tolerate lying flat currently. --Pain: History of arthritis, note does not report on any chronic pain medications. Reports chronic, generalized aches and pains. Has available prn [place]--sparing use 1-2 doses per day, will continue to monitor requirements/ effectiveness. Today during my exam endorses generalized pain though unable to reach or further qualify. Indicates pain pill effective. * Palliative care will continue to follow during hospital course as condition evolves, to assist patient/decision-maker with understanding of medical conditions, weighing benefits/burdens of treatment options, for clarification of goals of treatment. Additionally will assist with any symptoms of palliative concern Time Spent Total Floor Time (mins): 30 >50% Counseling/Coord of Care: Yes (discussed with RN) Attestation To help prompt me to consider important information that might be impacting today's encounter and assessment, information from prior notes written by myself or my colleagues may have been "brought forward" into today's note. My signature on this note, however, is an attestation that I personally performed the exam, history, and/or decision-making noted today, and, unless otherwise indicated, the interactions with patient, family, and staff as well as the review of records all occurred today. I also attest that the listed assessment and stated plan reflect my best clinical judgment today based on the combination of historical information, prior notes, and today's exam/ interactions. When time spent is documented, it refers only to time spent today by the signer, or if indicated, combined time spent today by collaborating physician/nurse practitioner. Debbie Rodríguez May 24, 2016 15:01
[2016-05-25] VITALS (28 sets, daily range): BP systolic 86–106; BP diastolic 51–58; PULSE 62–68; RESP 26–28; TEMP 97.2–97.8; O2SAT 92–96
[2016-05-25] MEDS: CHLORHEXIDINE GLUCONATE 2 % 1 PACK (2 CLOTHS) TOP SCH ×2 (04:00→22:01)
[2016-05-25] MEDS: INSULIN ASPART SUPPLEMENTAL SCALE SQ SCH ×4 (05:54→21:00)
[2016-05-25] MEDS: LEVOTHYROXINE SODIUM 100 MCG TAB PO SCH (05:54)
[2016-05-25] MEDS: NYSTATIN 100,000 U/GM PWD 15 GM BTL TOPICAL SCH ×3 (05:54→22:01)
[2016-05-25] MEDS: ALBUMIN HUMAN 25% 25 GM/100 ML BAGP IV SCH ×2 (05:56→17:38)
[2016-05-25 07:16] LABS: INTERNATIONAL NORMALIZED RATIO 3.4 RATIO; PROTHROMBIN TIME - PATIENT 39.5 SEC (9.8-11.6)
[2016-05-25 07:27] LABS: BICARBONATE 28.3 MEQ/L (21.0-32.0); POTASSIUM 4.6 MEQ/L (3.5-5.1)
[2016-05-25] MEDS: CHLORHEXIDINE 0.12% (ORAL KIT) 15 ML CUP MT SCH ×2 (08:00→20:00)
[2016-05-25] MEDS: AMIODARONE 200 MG TAB PO SCH (09:36)
[2016-05-25] MEDS: CARVEDILOL 6.25 MG TAB PO SCH ×2 (09:36→22:01)
[2016-05-25] MEDS: ALLOPURINOL 100 MG TAB PO SCH (09:36)
[2016-05-25] MEDS: PANTOPRAZOLE SODIUM 40 MG VIAL IV SCH (09:36)
[2016-05-25] MEDS: PARoxetine HCL 20 MG TAB PO SCH (09:36)
[2016-05-25] MEDS: SPIRONOLACTONE 25 MG TAB PO SCH (09:36)
--- NOTE | 2016-05-25 10:05 | HHI.NPPN ---
Subjective History of Present Illness 80 year old with COPD/CHF ARF Review of Systems Respiratory Lungs: SOB Objective Data Data 05/24/16 05/25/16 19:00 07:00 Intake Total 359 ml 567 ml Output Total 150 ml 125 ml Balance 209 ml 442 ml Intake Oral 240 ml 480 ml IV Total 119 ml 87 ml Output Urine Total 150 ml 125 ml # Bowel Movements 0 1 Vital Signs Date Time Temp Pulse Resp B/P Pulse Ox O2 Delivery O2 Flow Rate FiO2 05/25/16 08:00 93 Bi-Pap 15.00 60 05/25/16 07:36 94 BiPAP 60 05/25/16 07:34 94 60 05/25/16 06:00 63 05/25/16 05:00 65 05/25/16 04:00 66 05/25/16 04:00 93 60 05/25/16 03:00 97.4 66 27 105/53 93 05/25/16 03:00 93 Bi-Pap 15.00 60 05/25/16 03:00 66 05/25/16 02:16 66 05/25/16 01:30 96 60 05/25/16 01:00 66 05/25/16 00:00 67 05/24/16 23:00 94 Bi-Pap 15.00 60 05/24/16 23:00 67 05/24/16 23:00 96.9 66 25 109/54 94 05/24/16 22:38 97 60 05/24/16 22:00 67 05/24/16 21:00 66 05/24/16 20:37 21 05/24/16 20:00 67 05/24/16 19:46 97 60 05/24/16 19:00 97.2 67 28 106/56 95 05/24/16 19:00 95 Bi-Pap 15.00 60 05/24/16 19:00 65 05/24/16 17:49 94 60 05/24/16 17:00 66 05/24/16 16:13 66 05/24/16 16:00 97.0 65 24 92/53 93 05/24/16 15:00 65 05/24/16 15:00 92 Bi-Pap 15.00 60 05/24/16 14:44 90 60 05/24/16 14:00 66 05/24/16 13:00 68 05/24/16 12:07 69 05/24/16 12:00 68 05/24/16 11:00 70 05/24/16 11:00 92 Bi-Pap 15.00 60 05/24/16 11:00 97.2 72 24 112/61 92 05/24/16 10:35 99 60 -: 05/24/16 0544 05/25/16 0650 Physical Exam General Appearance: Well Developed, Obese Neck Neck Exam: Neck Supple Pulmonary Resp Exam: Rhonchi, Decreased Bases Cardiology CV Exam: Arrhythmia Gastrointestinal/Abdomen GI Exam: Soft, Distended Extremeties Extremities Exam: Moderate Edema Assessment/Plan Problem List: (1) JASON (acute kidney injury) Plan: she has renal failure which is worse, UOP remained low reorder Diamox 500 mg IV daily on Bumex drip at 1 mg/hr patient refused dialysis consider palliative care d/w staff doing poorly respiratory failure/CHF/RF poor prognosis she was told about dialysis and complications, possible intubation and she is refusing it 1330 pm d/w Dr. Stout staff DNR per patient wishes BP dropping poor prognosis poor out come stop Bumex drip comfort measures (2) Acute systolic congestive heart failure Plan: 35% EF (3) Coag negative Staphylococcus bacteremia Plan: ID following (4) COPD Plan: On O2 (5) CHF (congestive heart failure) Plan: EF 35% Problem Qualifiers (1) CHF (congestive heart failure): Qualified Code: I50.9 - Acute on chronic congestive heart failure, unspecified congestive heart failure type Jennifer Young MD May 25, 2016 10:05
[2016-05-25] MEDS: SODIUM CHLORIDE 0.9% FLUSH 5 ML FLUSH IVF SCH ×2 (10:08→22:01)
--- NOTE | 2016-05-25 11:21 | HHI.HCPN ---
Reason for visit a. To assist with evaluation and management of symptoms including: Dyspnea, anxiety, chronic pain b. To assist medical decision maker(s) with: better understanding of current medical conditions; weighing benefits/burdens of medical treatment options; making medical treatment decisions. Subjective/Interval History Pt seen today to follow up on anxiety/comfort, goals of treatment. Patient seen in ICU, remains on BiPAP 60% FiO2 breathing at a rate of 35-40 BPM. Has not been able to obtain CT chest due to unable to tolerate laying flat for. Lethargic, opening eyes to voice and following some simple commands. Cyanotic lips noted. Patient answering to yes/no questions by nodding her head. Briefly opening eyes with questions. Nodded head "no" when asked about pain or discomfort. Worsening renal function despite Bumex drip and Diamox, BUN/creat 112/3.40 from 95/2.96 yesterday. Now oliguric with UO of 350ml/24h yesterday. Nephrology following. No visitors or family at bedside during my visit. Placed telephone call to [facility] -hardik Cramer and left message in . Palliative care to f/u. 14:40. TC to patient's hardik Cramer. She tells me that she has already spoken to with Palliative care and that she is in agreement with NO CODE status and no SECURITY INCIDENT RESPONSE SPECIALIST. [place] traveling today and is expected to arrive sometime tomorrow morning. Hardik appreciative of our f/u call. . Advance Directives Living Will: Completed, but not made available Health Care Surrogate: Completed, but not made available (completed new healthcare surrogate today 05/22 naming hardik Cramer) Advance Directive Specifics Date completed: 05/22/16 Health Care Surrogate(s): completed new healthcare surrogate 05/22 naming hardik Cramer Significant change in goals: FULL CODE. Pending f/u discussion with hardik Cramer. Objective Vital Signs Date Time Temp Pulse Resp B/P Pulse Ox O2 Delivery O2 Flow Rate FiO2 05/25/16 10:04 92 60 05/25/16 08:00 93 Bi-Pap 15.00 60 05/25/16 08:00 97.8 65 26 106/57 94 05/25/16 07:36 94 BiPAP 60 05/25/16 07:34 94 60 05/25/16 06:00 63 05/25/16 05:00 65 05/25/16 04:00 66 05/25/16 04:00 93 60 05/25/16 03:00 97.4 66 27 105/53 93 05/25/16 03:00 93 Bi-Pap 15.00 60 05/25/16 03:00 66 05/25/16 02:16 66 05/25/16 01:30 96 60 05/25/16 01:00 66 05/25/16 00:00 67 05/24/16 23:00 94 Bi-Pap 15.00 60 05/24/16 23:00 67 05/24/16 23:00 96.9 66 25 109/54 94 05/24/16 22:38 97 60 05/24/16 22:00 67 05/24/16 21:00 66 05/24/16 20:37 21 05/24/16 20:00 67 05/24/16 19:46 97 60 05/24/16 19:00 97.2 67 28 106/56 95 05/24/16 19:00 95 Bi-Pap 15.00 60 05/24/16 19:00 65 05/24/16 17:49 94 60 05/24/16 17:00 66 05/24/16 16:13 66 05/24/16 16:00 97.0 65 24 92/53 93 05/24/16 15:00 65 05/24/16 15:00 92 Bi-Pap 15.00 60 05/24/16 14:44 90 60 05/24/16 14:00 66 05/24/16 13:00 68 05/24/16 12:07 69 05/24/16 12:00 68 05/24/16 11:00 70 05/24/16 11:00 92 Bi-Pap 15.00 60 05/24/16 11:00 97.2 72 24 112/61 92 Intake & Output 05/25/16 05/25/16 07:00 19:00 Intake Total 567 ml Output Total 125 ml Balance 442 ml Intake Oral 480 ml IV Total 87 ml Output Urine Total 125 ml # Bowel Movements 1 Physical Exam CONSTITUTIONAL/GENERAL: This is an obese patient, in ICU, on specialty bed, tachypneic and lethargic, on BiPAP. TUBES/LINES/DRAINS: Peripheral IV right forearm, Tavares catheter, specialty air bed, BiPAP mask HEENT: pupils equal and reactive. Cyanotic lips. SKIN: Scattered ecchymosis to BUE. CARDIOVASCULAR: Irregular rate and rhythm, heart sounds difficult to auscultate over breath sounds. Peripheral pulses symmetric. + General edema to peripheral. RESPIRATORY/CHEST: Symmetric, mildly labored respirations on BiPAP. Tachypneic. Decreased breath sounds to bases, though no wheezes or crackles heard. Abdominal breathing noted. GASTROINTESTINAL: Abdomen soft, obese, nontender, nondistended. Unable to assess for hepato-splenomegaly secondary to body habitus. No guarding. Bowel sounds present. GENITOURINARY: Without palpable bladder distension. Tavares catheter in place. NEUROLOGICAL: Lethargic today. Briefly opening eyes to voice. Fllowing some simple commands. 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 PSYCHIATRIC: difficult to assess secondary to clinical condition, lethargy. . Diagnostic Tests Laboratory Laboratory Tests Test 05/23/16 05/24/16 05/24/16 05/25/16 05:15 05:44 12:12 06:50 White Blood Count 9.6 TH/MM3 9.4 TH/MM3 (4.0-11.0) (4.0-11.0) Red Blood Count 4.23 MIL/MM3 4.21 MIL/MM3 (4.00-5.30) (4.00-5.30) Hemoglobin 13.7 GM/DL 13.5 GM/DL (11.6-15.3) (11.6-15.3) Hematocrit 41.0 % 42.2 % (35.0-46.0) (35.0-46.0) Mean Corpuscular Volume 97.0 FL 100.1 FL (80.0-100.0) (80.0-100.0) Mean Corpuscular Hemoglobin 32.4 PG 32.1 PG (27.0-34.0) (27.0-34.0) Mean Corpuscular Hemoglobin 33.4 % 32.0 % Concent (32.0-36.0) (32.0-36.0) Red Cell Distribution Width 15.7 % 16.1 % (11.6-17.2) (11.6-17.2) Platelet Count 145 TH/MM3 177 TH/MM3 (150-450) (150-450) Mean Platelet Volume 11.0 FL 10.7 FL (7.0-11.0) (7.0-11.0) Neutrophils (%) (Auto) 83.7 % 83.8 % (16.0-70.0) (16.0-70.0) Lymphocytes (%) (Auto) 5.4 % 6.0 % (9.0-44.0) (9.0-44.0) Monocytes (%) (Auto) 8.9 % (0.0-8.0) 8.6 % (0.0-8.0) Eosinophils (%) (Auto) 1.3 % (0.0-4.0) 1.2 % (0.0-4.0) Basophils (%) (Auto) 0.7 % (0.0-2.0) 0.4 % (0.0-2.0) Neutrophils # (Auto) 8.0 TH/MM3 7.9 TH/MM3 (1.8-7.7) (1.8-7.7) Lymphocytes # (Auto) 0.5 TH/MM3 0.6 TH/MM3 (1.0-4.8) (1.0-4.8) Monocytes # (Auto) 0.8 TH/MM3 0.8 TH/MM3 (0-0.9) (0-0.9) Eosinophils # (Auto) 0.1 TH/MM3 0.1 TH/MM3 (0-0.4) (0-0.4) Basophils # (Auto) 0.1 TH/MM3 0.0 TH/MM3 (0-0.2) (0-0.2) CBC Comment DIFF FINAL DIFF FINAL Differential Comment Hematology Comments Prothrombin Time 37.5 SEC 36.9 SEC 39.5 SEC (9.8-11.6) (9.8-11.6) (9.8-11.6) Prothromb Time International 3.2 RATIO 3.2 RATIO 3.4 RATIO Ratio Sodium Level 139 MEQ/L 137 MEQ/L 136 MEQ/L (136-145) (136-145) (136-145) Potassium Level 4.5 MEQ/L 4.6 MEQ/L 4.6 MEQ/L (3.5-5.1) (3.5-5.1) (3.5-5.1) Chloride Level 98 MEQ/L 94 MEQ/L 97 MEQ/L (98-107) (98-107) (98-107) Carbon Dioxide Level 31.1 MEQ/L 29.0 MEQ/L 28.3 MEQ/L (21.0-32.0) (21.0-32.0) (21.0-32.0) Blood Urea Nitrogen 89 MG/DL (7-18) 95 MG/DL (7-18) 112 MG/DL (7-18) Creatinine 2.45 MG/DL 2.96 MG/DL 3.40 MG/DL (0.50-1.00) (0.50-1.00) (0.50-1.00) Random Glucose 136 MG/DL 152 MG/DL 140 MG/DL (74-106) (74-106) (74-106) Calcium Level 8.7 MG/DL 9.1 MG/DL 8.9 MG/DL (8.5-10.1) (8.5-10.1) (8.5-10.1) Phosphorus Level 3.9 MG/DL (2.5-4.9) Anion Gap 10 MEQ/L (5-15) 14 MEQ/L (5-15) 11 MEQ/L (5-15) Estimat Glomerular Filtration 19 ML/MIN (>89) 15 ML/MIN (>89) 13 ML/MIN (>89) Rate Total Protein 6.1 GM/DL 6.6 GM/DL (6.0-7.6) (6.4-8.2) Albumin 3.39 GM/DL 3.3 GM/DL (3.50-5.00) (3.4-5.0) Albumin/Globulin Ratio 1.25 (1.39-2.23) Ximkd-7-Mpoavusgb 0.27 GM/DL (0.11-0.29) Gjjqs-0-Kzxxudxho 0.97 GM/DL (0.22-1.00) Beta Globulins 0.75 GM/DL (0.53-1.03) Gamma Globulins 0.71 GM/DL (0.50-1.39) Electrophoresis Pathologist Comment Anti-Nuclear Antibody Screen NEG (NEG) Total Bilirubin 0.8 MG/DL (0.2-1.0) Aspartate Amino Transf 15 U/L (15-37) (AST/SGOT) Alanine Aminotransferase 21 U/L (10-53) (ALT/SGPT) Alkaline Phosphatase 42 U/L (45-117) Urine Random Creatinine 116 MG/DL (27-300) Urine Random Total Protein 62 MG/DL (0-11.8) Urine Random Sodium 14 MEQ/L Urine Protein/Creatinine Ratio 0.53 (0.00-0.14) Result Diagram: 05/24/16 0544 05/25/16 0624 Assessment and Plan Disease Oriented Problem List: (1) Acute respiratory failure (2) COPD (3) CHF (congestive heart failure) (4) Acute on chronic kidney failure (5) Pulmonary infiltrate (6) Atrial fibrillation (7) Hypothyroid (8) Coag negative Staphylococcus bacteremia Symptom Scale: (1) Dyspnea 0-10 Scale: Unable to quantify Comment: Worsening, remains on BiPAP. (2) Anxiety 0-10 Scale: Unable to quantify (3) Pain 0-10 Scale: Unable to quantify Pertinent Non-Medical Issues Psychosocial: . Lives in an adult senior apartment building. Supported by her niece Bela. Spiritual: Does not desire doll repairer support. Legal:Patient is currently able to participate and make her own decisions. She does have healthcare surrogate documents at home unable to access those at this time. Completed new designation today 05/22 naming her niece Bela as healthcare surrogate. Ethical issues impacting care: Important Contacts Hardik Mead [phone] . Prognosis This patient was admitted for CHF exacerbation, systolic heart failure. Respiratory status has fluctuated requiring BiPAP alternating with high FiO2 (60 %). On chronic O2 at home. Remains high risk for further complications and respiratory setback including intubation. May be appropriate for hospice if goals compatible. . Code Status: No Code Plan * Legal decision maker: Patient currently capacitated and able to make her own decisions, though this may be deteriorating as patient's respiratory status deteriorates. Has designated her niece Bela as HCS. * Goals: Goals: 05/25/16. Patient electing for NO CODE and declining SECURITY INCIDENT RESPONSE SPECIALIST. Niece - HCS Bela in agreement with this. Hardik is en route to [place] and is expected to arrive tomorrow morning. * CODE STATUS: No code. * SYMPTOMS: --Anxiety-multifactorial, likely related to COPD, worsening respiratory failure during acute hospitalization requiring BiPAP. Noted patient on Paxil regularly at home. Patient allergies reported as all benzodiazepines, Valium. Not sure if this is true allergy?//Reaction is rapid heartbeat. Could consider low-dose opiates ie 0.25mg hydromorphone Q 6-8 hours PRN to treat tachypnea, decrease respiratory drive which may in turn decrease associated anxiety. Home Paxil has been continued-- > consider increasing dose to 20 mg, though this will not offer any relief in the short term -- Tachypnea: Multifactorial, patient with acute heart failure,+ COPD. Ongoing Tachypnea/anxiety. Continue maximize medical treatment, Bumex drip being added today by medical attending. on BIPAP FiO2 60%. Could consider low- dose opiates prn in lieu of benzodiazepine. (See above). CT chest pending-- pt unable to tolerate lying flat currently. --Pain: History of arthritis, note does not report on any chronic pain medications. Reports chronic, generalized aches and pains. Has available prn [place]--sparing use 1-2 doses per day, will continue to monitor requirements/ effectiveness. Today during my exam endorses generalized pain though unable to reach or further qualify. Indicates pain pill effective. * Palliative care will continue to follow during hospital course as condition evolves, to assist patient/decision-maker with understanding of medical conditions, weighing benefits/burdens of treatment options, for clarification of goals of treatment. Additionally will assist with any symptoms of palliative concern. . Time Spent >50% Counseling/Coord of Care: Yes Attestation To help prompt me to consider important information that might be impacting today's encounter and assessment, information from prior notes written by myself or my colleagues may have been "brought forward" into today's note. My signature on this note, however, is an attestation that I personally performed the exam, history, and/or decision-making noted today, and, unless otherwise indicated, the interactions with patient, family, and staff as well as the review of records all occurred today. I also attest that the listed assessment and stated plan reflect my best clinical judgment today based on the combination of historical information, prior notes, and today's exam/ interactions. When time spent is documented, it refers only to time spent today by the signer, or if indicated, combined time spent today by collaborating physician/nurse practitioner. Katherine Fagan May 25, 2016 11:21 combination of historical information, prior notes, and today's exam/ interactions. When time spent is documented, it refers only to time spent today by the signer, or if indicated, combined time spent today by collaborating physician/nurse practitioner. Katherine Fagan May 25, 2016 11:21
--- NOTE | 2016-05-25 13:26 | HHI.PR ---
Subjective Remarks patient is seen with staff nurse- refused Hemodialysis- confirmed with Dr. Young discuss about CPR and ventilator if continues to compensate- patient refuses patient on BiPAP ff all commands and responds to questions and moves all extremities Objective Vitals Vital Signs Date Time Temp Pulse Resp B/P Pulse Ox O2 Delivery O2 Flow Rate FiO2 05/25/16 10:04 92 60 05/25/16 08:00 93 Bi-Pap 15.00 60 05/25/16 08:00 97.8 65 26 106/57 94 05/25/16 07:36 94 BiPAP 60 05/25/16 07:34 94 60 05/25/16 06:00 63 05/25/16 05:00 65 05/25/16 04:00 66 05/25/16 04:00 93 60 05/25/16 03:00 97.4 66 27 105/53 93 05/25/16 03:00 93 Bi-Pap 15.00 60 05/25/16 03:00 66 05/25/16 02:16 66 05/25/16 01:30 96 60 05/25/16 01:00 66 05/25/16 00:00 67 05/24/16 23:00 94 Bi-Pap 15.00 60 05/24/16 23:00 67 05/24/16 23:00 96.9 66 25 109/54 94 05/24/16 22:38 97 60 05/24/16 22:00 67 05/24/16 21:00 66 05/24/16 20:37 21 05/24/16 20:00 67 05/24/16 19:46 97 60 05/24/16 19:00 97.2 67 28 106/56 95 05/24/16 19:00 95 Bi-Pap 15.00 60 05/24/16 19:00 65 05/24/16 17:49 94 60 05/24/16 17:00 66 05/24/16 16:13 66 05/24/16 16:00 97.0 65 24 92/53 93 05/24/16 15:00 65 05/24/16 15:00 92 Bi-Pap 15.00 60 05/24/16 14:44 90 60 05/24/16 14:00 66 I/O 05/24/16 05/24/16 05/24/16 05/25/16 05/25/1605/25/17 07:00 15:00 23:00 07:00 15:00 23:00 Intake Total 174 ml 359 ml 567 ml Output Total 150 ml 150 ml 125 ml Balance 24 ml 209 ml 442 ml Intake Oral 150 ml 240 ml 480 ml IV Total 24 ml 119 ml 87 ml Output Urine Total 150 ml 150 ml 125 ml # Bowel Movements 0 0 1 Result Diagram: 05/24/16 0544 05/25/16 0650 Objective Remarks awake and alert on BiPAP awake anicteric no nuchal rigidity decreased breath sounds, no rales regular rhythm abdomen- flabby soft larson in place + edema moves all extremities limited Procedures Echocardiogram 05/15/2016 SUMMARY - Left ventricle: The cavity size was mildly dilated. Wall thickness was increased in a pattern of mild LVH. Systolic function was moderately reduced. The estimated ejection fraction was 35%. Wall motion was normal; there were no regional wall motion abnormalities. - Aortic valve: Mildly calcified annulus. Trileaflet; mildly thickened, mildly calcified leaflets. Mild regurgitation. 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 - Left atrium: The atrium was mildly dilated. - Right ventricle: The cavity size was severely dilated. Wall thickness was normal. - Right atrium: The atrium was dilated. - Tricuspid valve: Wide-open regurgitation. A/P Assessment and Plan Acute hypoxemic respiratory failure ICD Code: J96.01 Status: Acute Plan: Currently on bipap - continue sp Solumedrol treatment - no wheezing at this time on BiPap. Pulmonary ff Acute systolic congestive heart failure- EF 30%. Moderate Mitral valve stenosis ICD Code: I50.21 Status: on amiodarone, Coreg. Aldactone On coumadin . INR 3.2- on hold. Cardiology ff JASON (acute kidney injury) ICD Code: N17.9 Status: Acute Plan: worsening renal functions. Oliguric Appreciate nephrology recommendations. Dr. Young ff needs hemodialysis- patient refuses Coag negative Staphylococcus bacteremia ICD Code: R78.81 Status: Acute Plan: fu ID recommendations S/P Levaquin as per ID Hyperglycemia ICD Code: R73.9 Status: Acute Plan: Blood sugars stable - Continue SSI with insulin Fungal infection of skin ICD Code: B36.9 Status: Acute Plan: Continue nystatin- seems to be improved Hypothyroid ICD Code: E03.9 Status: Acute Plan: continue levothyroxine Lovenox/PPI for prophylaxis clinical status worsening- if intubated will be difficult extubation- likely will end up with tracheostomy on d/w patient- she adamantly refused HD, and when d/w about code status- DNR- but we will have palliative care confirm this too d/w with Dr. Osman- he will ask one of our Palliative care team to come up and see patient Akhil Stout MD May 25, 2016 13:26 Status: Acute Plan: worsening JASON. Oliguric Appreciate nephrology recommendations. Continue Bumex drip, (7) Hypothyroid ICD Code: E03.9 Status: Acute Plan: continue levothyroxine Lovenox/PPI for prophylaxis Akhil Stout MD May 25, 2016 13:26
[2016-05-25] MEDS ORDERED: HYDROmorphone HCL PF 1 MG/ML VIAL IV PUSH ONE (13:45)
--- NOTE | 2016-05-25 13:58 | HHI.HCPN ---
11am: Met with patient at bedside. Discussed with nurse, Cherie who reports patient told Dr. Young she does not want dialysis earlier today. Patient awakens easily though is lethargic. I spoke with patient, she is able to nod yes or no appropriately, but has difficulty speaking due to shortness of breath on BiPAP. She remembers MIKE Randolph in Palliative care from prior visits. Reviewed her medical condition and she confirms that she does not want dialysis twice during my visit. She says"no." She nods yes when I asked if she wants me to call her niece. I advised her that the niece is on the way expected to arrive in the coming day or so. She does not want to make a decision regarding CODE STATUS until her niece arrives. 2:00pm: Call from Dr. Stout to request palliative care reevaluate goals of care with patient. I spoke with patient again she again confirms by nodding that she does not want dialysis. She nods no to "chest compressions, shock, ACLS or intubation." She nods yes to being allowed to pass peacefully without compressions, tubes or machines. She nods yes when asked if I can call and update her niece/ HCS, Bela. Called Bela ([facility]) to provide medical update. She also endorses comfort focused care with continued BiPAP until she arrives on 05/26/16. She does not want her to suffer. She elects NO CODE and reports she and patient had conversations with patient 3 weeks prior to admission that patient would not want life prolonging measures if she were dying. Bela tells me "I know she is not getting better this time and I do not want her to suffer." She hopes she can make it to see her before she dies and again anticipated arrival 05/26/16 she has a 12-[address] ahead of her, plans to drive overnight. She thanks me for the update and has palliative care number. Will consider hospice if pt survives until she arrives. Code Status: Full Code Plan * Legal decision maker: Patient currently capacitated and able to make her own decisions, though this may be deteriorating as patient's respiratory status deteriorates. Has designated her niece Bela as [facility]. * Patient elects NO CODE and DOES NOT want dialysis. Not ready to consider hospice until niece arrives 05/26/16. Bela Perla supports patient decisions. Patient appears to be clinically declining. * NO CODE. * SYMPTOMS: Anxiety-multifactorial, likely related to COPD, worsening respiratory failure during acute hospitalization requiring BiPAP. Noted patient on Paxil regularly at home. Patient allergies reported as all benzodiazepines, Valium. Not sure if this is true allergy? Reaction is rapid heartbeat. Will add low-dose opiate 0.25mg -0.5mg hydromorphone Q 3 hours PRN to treat tachypnea, dyspnea to decrease respiratory drive which may in turn decrease associated anxiety. Tachypnea: Multifactorial, patient with acute heart failure,+ COPD. Ongoing Tachypnea/anxiety. Hypotension: Recommend DC Bumex drip. Pain: History of arthritis, note does not report on any chronic pain medications. Reports chronic, generalized aches and pains. Unable to swallow [place]. Will add Dilaudid as above. * Palliative care will continue to follow during hospital course as condition evolves, to assist patient/decision-maker with understanding of medical conditions, weighing benefits/burdens of treatment options, for clarification of goals of treatment. Additionally will assist with any symptoms of palliative concern JAYC DURAND May 25, 2016 13:58
[2016-05-25] MEDS ORDERED: HYDROmorphone HCL PF 1 MG/ML VIAL IV PUSH PRN ×2 (16:30)
[2016-05-26] VITALS (24 sets, daily range): BP systolic 103–116; BP diastolic 50–71; PULSE 58–89; RESP 20–38; TEMP 97–97.6; O2SAT 88–93
[2016-05-26 05:13] LABS: INTERNATIONAL NORMALIZED RATIO 2.7 RATIO
[2016-05-26] MEDS: LEVOTHYROXINE SODIUM 100 MCG TAB PO SCH (06:08)
[2016-05-26] MEDS: ALBUMIN HUMAN 25% 25 GM/100 ML BAGP IV SCH ×2 (06:08→18:00)
[2016-05-26] MEDS: NYSTATIN 100,000 U/GM PWD 15 GM BTL TOPICAL SCH ×2 (06:10→14:00)
[2016-05-26] MEDS: INSULIN ASPART SUPPLEMENTAL SCALE SQ SCH ×3 (06:10→16:00)
[2016-05-26] MEDS: CHLORHEXIDINE 0.12% (ORAL KIT) 15 ML CUP MT SCH (08:00)
[2016-05-26] MEDS: PARoxetine HCL 20 MG TAB PO SCH (08:38)
[2016-05-26] MEDS: SODIUM CHLORIDE 0.9% FLUSH 5 ML FLUSH IVF SCH (08:38)
[2016-05-26] MEDS: CARVEDILOL 6.25 MG TAB PO SCH (08:39)
[2016-05-26] MEDS: SPIRONOLACTONE 25 MG TAB PO SCH (08:40)
[2016-05-26] MEDS: AMIODARONE 200 MG TAB PO SCH (08:40)
[2016-05-26] MEDS: PANTOPRAZOLE SODIUM 40 MG VIAL IV SCH (08:40)
[2016-05-26] MEDS: ALLOPURINOL 100 MG TAB PO SCH (09:00)
--- NOTE | 2016-05-26 11:54 | HHI.HCPN ---
Reason for visit a. To assist with evaluation and management of symptoms including: Dyspnea, anxiety, chronic pain b. To assist medical decision maker(s) with: better understanding of current medical conditions; weighing benefits/burdens of medical treatment options; making medical treatment decisions. Subjective/Interval History Pt seen today to follow up on anxiety/comfort, goals of treatment. Patient seen in ICU, remains on BiPAP 60% FiO2. No new labs today the renal functions continue to elevate yesterday. Minimal urine output, Bumex drip has been DC'd. Patient yesterday elected not to proceed with dialysis. Palliative has been in communication with [facility] who is traveling here to see patient -- she has called and advised she would be here around 1pm today. pt seen in room, no family present. She is awake, very limited communication due to bipap mask, tachypnea. She remembers me from previous visits. Explained her niece is in town and will be coming to see her soon. She nods yes. Briefly explore that her conditions have not improved and that we have no further treatment options and it is my understanding that she does not want mechanical vent or other invasive measures, she nods in agreement with this. Gently explore that at this point comfort is a reasonable option she nods in agreement. She is really unable to speak any other than nodding yes or no. She does indicate she has pain she is not able to tell me where. She would like pain medication. Notified nurse. Call to hardik rCamer , she indicates that she is in town however she is trying to attend to paying patient's bills and bank account before the [facility] close and will be back here in another hour or so to meet with patient and palliative. She will call me when she arrived here at the hospital. Notified patient she will be here in a little while, notified nursing. . Advance Directives Living Will: Completed, but not made available Health Care Surrogate: Completed, but not made available (completed new healthcare surrogate today 05/22 naming hardik Cramer) Advance Directive Specifics Date completed: 05/22/16 Health Care Surrogate(s): completed new healthcare surrogate 05/22 naming hardik Cramer Objective Vital Signs Date Time Temp Pulse Resp B/P Pulse Ox O2 Delivery O2 Flow Rate FiO2 05/26/16 11:07 93 60 05/26/16 10:00 66 05/26/16 09:00 64 05/26/16 08:00 65 05/26/16 07:29 93 60 05/26/16 07:00 97.6 65 38 116/54 91 05/26/16 07:00 91 Bi-Pap 15.00 60 05/26/16 06:00 65 05/26/16 05:00 65 05/26/16 04:25 92 60 05/26/16 04:00 64 05/26/16 03:00 64 05/26/16 03:00 97.5 65 24 103/50 92 05/26/16 03:00 92 Bi-Pap 15.00 60 05/26/16 02:00 64 05/26/16 01:00 64 05/26/16 00:00 63 05/25/16 23:30 92 60 05/25/16 23:00 92 Bi-Pap 15.00 60 05/25/16 23:00 64 05/25/16 23:00 97.4 66 26 100/51 92 05/25/16 22:00 66 05/25/16 21:00 67 05/25/16 20:00 66 05/25/16 19:48 93 60 05/25/16 19:00 94 Bi-Pap 15.00 60 05/25/16 19:00 65 05/25/16 19:00 97.3 66 28 92/55 94 05/25/16 18:16 92 60 05/25/16 17:46 97.2 62 26 95/53 92 05/25/16 15:29 93 Bi-Pap 15.00 60 05/25/16 15:00 62 05/25/16 13:49 93 60 05/25/16 13:00 66 05/25/16 12:00 97.7 66 27 86/58 92 Intake & Output 05/26/16 05/26/16 07:00 19:00 Intake Total 480 ml Output Total 365 ml Balance 115 ml Intake Oral 480 ml Output Urine Total 365 ml Physical Exam CONSTITUTIONAL/GENERAL: This is an obese patient, in ICU, on specialty bed, tachypneic and lethargic, on BiPAP. TUBES/LINES/DRAINS: Peripheral IV right forearm, Tavares catheter, specialty air bed, BiPAP mask HEENT: pupils equal and reactive. Cyanotic lips. SKIN: Scattered ecchymosis to BUE. CARDIOVASCULAR: Irregular rate and rhythm, heart sounds difficult to auscultate over breath sounds. Peripheral pulses symmetric. + General edema to peripheral. RESPIRATORY/CHEST: Symmetric, mildly labored respirations on BiPAP. Tachypneic. Decreased breath sounds to bases, though no wheezes or crackles heard. Abdominal breathing noted. GASTROINTESTINAL: Abdomen soft, obese, nontender, nondistended. Unable to assess for hepato-splenomegaly secondary to body habitus. No guarding. Bowel sounds present. GENITOURINARY: Without palpable bladder distension. Tavares catheter in place. NEUROLOGICAL: Lethargic today. Briefly opening eyes to voice. Fllowing some simple commands. 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 PSYCHIATRIC: difficult to assess secondary to clinical condition, lethargy. . Diagnostic Tests Laboratory Laboratory Tests Test 05/24/16 05/24/16 05/25/16 05/26/16 05:44 12:12 06:50 04:12 White Blood Count 9.4 TH/MM3 (4.0-11.0) Red Blood Count 4.21 MIL/MM3 (4.00-5.30) Hemoglobin 13.5 GM/DL (11.6-15.3) Hematocrit 42.2 % (35.0-46.0) Mean Corpuscular Volume 100.1 FL (80.0-100.0) Mean Corpuscular Hemoglobin 32.1 PG (27.0-34.0) Mean Corpuscular Hemoglobin 32.0 % Concent (32.0-36.0) Red Cell Distribution Width 16.1 % (11.6-17.2) Platelet Count 177 TH/MM3 (150-450) Mean Platelet Volume 10.7 FL (7.0-11.0) Neutrophils (%) (Auto) 83.8 % (16.0-70.0) Lymphocytes (%) (Auto) 6.0 % (9.0-44.0) Monocytes (%) (Auto) 8.6 % (0.0-8.0) Eosinophils (%) (Auto) 1.2 % (0.0-4.0) Basophils (%) (Auto) 0.4 % (0.0-2.0) Neutrophils # (Auto) 7.9 TH/MM3 (1.8-7.7) Lymphocytes # (Auto) 0.6 TH/MM3 (1.0-4.8) Monocytes # (Auto) 0.8 TH/MM3 (0-0.9) Eosinophils # (Auto) 0.1 TH/MM3 (0-0.4) Basophils # (Auto) 0.0 TH/MM3 (0-0.2) CBC Comment DIFF FINAL Differential Comment Prothrombin Time 36.9 SEC 39.5 SEC 31.0 SEC (9.8-11.6) (9.8-11.6) (9.8-11.6) Prothromb Time International 3.2 RATIO 3.4 RATIO 2.7 RATIO Ratio Sodium Level 137 MEQ/L 136 MEQ/L (136-145) (136-145) Potassium Level 4.6 MEQ/L 4.6 MEQ/L (3.5-5.1) (3.5-5.1) Chloride Level 94 MEQ/L 97 MEQ/L (98-107) (98-107) Carbon Dioxide Level 29.0 MEQ/L 28.3 MEQ/L (21.0-32.0) (21.0-32.0) Anion Gap 14 MEQ/L (5-15) 11 MEQ/L (5-15) Blood Urea Nitrogen 95 MG/DL (7-18) 112 MG/DL (7-18) Creatinine 2.96 MG/DL 3.40 MG/DL (0.50-1.00) (0.50-1.00) Estimat Glomerular Filtration 15 ML/MIN (>89) 13 ML/MIN (>89) Rate Random Glucose 152 MG/DL 140 MG/DL (74-106) (74-106) Calcium Level 9.1 MG/DL 8.9 MG/DL (8.5-10.1) (8.5-10.1) Total Bilirubin 0.8 MG/DL (0.2-1.0) Aspartate Amino Transf 15 U/L (15-37) (AST/SGOT) Alanine Aminotransferase 21 U/L (10-53) (ALT/SGPT) Alkaline Phosphatase 42 U/L (45-117) Total Protein 6.6 GM/DL (6.4-8.2) Albumin 3.3 GM/DL (3.4-5.0) Urine Random Creatinine 116 MG/DL (27-300) Urine Random Total Protein 62 MG/DL (0-11.8) Urine Random Sodium 14 MEQ/L Urine Protein/Creatinine Ratio 0.53 (0.00-0.14) Result Diagram: 05/24/16 0544 05/25/16 0650 Imaging Last Impressions Renal Ultrasound 05/22/16 0000 Signed Impressions: Service Date/Time: Sunday, May 22, 2016 20:51 - CONCLUSION: 1. Hyperechoic kidneys characteristic of medical renal disease. No hydronephrosis. Cyrus Espinoza MD Chest X-Ray 05/22/16 0000 Signed Impressions: Service Date/Time: Sunday, May 22, 2016 13:22 - CONCLUSION: 1. Cardiomegaly with mild congestive failure. 2. Consolidative changes left base. Luis Miguel Russell MD FACR Assessment and Plan Disease Oriented Problem List: (1) Acute respiratory failure (2) COPD (3) CHF (congestive heart failure) (4) Acute on chronic kidney failure (5) Pulmonary infiltrate (6) Atrial fibrillation (7) Hypothyroid (8) Coag negative Staphylococcus bacteremia Symptom Scale: (1) Dyspnea 0-10 Scale: Unable to quantify Comment: Worsening, remains on BiPAP. (2) Anxiety 0-10 Scale: Unable to quantify (3) Pain 0-10 Scale: Unable to quantify Pertinent Non-Medical Issues Psychosocial: . Lives in an adult senior apartment building. Supported by her niece Bela. 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 Legal:Patient is currently able to participate and make her own decisions. She does have healthcare surrogate documents at home unable to access those at this time. Completed new designation today 05/22 naming her niece Bela as healthcare surrogate. Ethical issues impacting care: Important Contacts Hardik Cramer [facility] [phone] . Prognosis This patient was admitted for CHF exacerbation, systolic heart failure. Respiratory status has fluctuated requiring BiPAP alternating with high FiO2 (60 %). On chronic O2 at home. Remains high risk for further complications and respiratory setback including intubation. May be appropriate for hospice if goals compatible. . Code Status: No Code Plan * Legal decision maker: Patient's ability to make decisions may be deteriorating due to her respiratory status though she still appears able to participate, likely best supported in decision-making, as patient's respiratory status deteriorates. Has designated her niece Bela as HCS. * Goals: Goals: 05/25/16. 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 Niece - [facility] Bela in agreement with this. 05/26/16 Niece is now in [place] and plans to be at the hospital and to meet with palliative, patient later today. Plan to discuss limited options, comfort/ hospice option when she arrives. [id number]------met w [facility] @ bedside, pt lethargic, SOB, minimally able to participate. [facility] elects [facility]. would like care center if possible. Orders for hospice placed. d/w RN-- cont giving PRN as needed. Indigent burial info given to Bela [facility]. Call to hospice admissions. * CODE STATUS: No code. * SYMPTOMS: --Anxiety-multifactorial, likely related to COPD, worsening respiratory failure during acute hospitalization requiring BiPAP. Noted patient on Paxil regularly at home. Patient allergies reported as all benzodiazepines, Valium. Not sure if this is true allergy?//Reaction is rapid heartbeat. PRN 0.25mg- 0.5,g hydromorphone Q 6-8 has been added. none utilized yet. -- Tachypnea: Multifactorial, patient with acute heart failure,+ COPD. Ongoing Tachypnea/anxiety. Continue maximize medical treatment, Bumex drip d/ c. on BIPAP FiO2 60%. PRN 0.25mg-0.5,g hydromorphone has been added. none utilized yet. --Pain: History of arthritis, note does not report on any chronic pain medications. Reports chronic, generalized aches and pains. Has available prn [place]--sparing use 1-2 doses per day, will continue to monitor requirements/ effectiveness. Today during my exam endorses generalized pain though unable to further qualify. PRN 0.25mg-0.5,g hydromorphone has been added. none utilized yet- notified nsg of pain reported today, she will provide prn * Palliative care will continue to follow during hospital course as condition evolves, to assist patient/decision-maker with understanding of medical conditions, weighing benefits/burdens of treatment options, for clarification of goals of treatment. Additionally will assist with any symptoms of palliative concern. . Attestation To help prompt me to consider important information that might be impacting today's encounter and assessment, information from prior notes written by myself or my colleagues may have been "brought forward" into today's note. My signature on this note, however, is an attestation that I personally performed the exam, history, and/or decision-making noted today, and, unless otherwise indicated, the interactions with patient, family, and staff as well as the review of records all occurred today. I also attest that the listed assessment and stated plan reflect my best clinical judgment today based on the combination of historical information, prior notes, and today's exam/ interactions. When time spent is documented, it refers only to time spent today by the signer, or if indicated, combined time spent today by collaborating physician/nurse practitioner. Debbie Rdoríguez May 26, 2016 11:54
--- NOTE | 2016-05-26 12:41 | HHI.NPPN ---
Subjective History of Present Illness 80 year old with COPD/CHF ARF Review of Systems Respiratory Lungs: SOB Objective Data Data 05/25/16 05/26/16 19:00 07:00 Intake Total 50 ml 480 ml Output Total 365 ml Balance 50 ml 115 ml Intake Oral 50 ml 480 ml Output Urine Total 365 ml Vital Signs Date Time Temp Pulse Resp B/P Pulse Ox O2 Delivery O2 Flow Rate FiO2 05/26/16 12:00 64 05/26/16 11:07 93 60 05/26/16 11:00 91 Bi-Pap 15.00 60 05/26/16 11:00 97.0 89 31 111/71 89 05/26/16 10:00 66 05/26/16 09:00 64 05/26/16 08:00 65 05/26/16 07:29 93 60 05/26/16 07:00 97.6 65 38 116/54 91 05/26/16 07:00 91 Bi-Pap 15.00 60 05/26/16 06:00 65 05/26/16 05:00 65 05/26/16 04:25 92 60 05/26/16 04:00 64 05/26/16 03:00 64 05/26/16 03:00 97.5 65 24 103/50 92 05/26/16 03:00 92 Bi-Pap 15.00 60 05/26/16 02:00 64 05/26/16 01:00 64 05/26/16 00:00 63 05/25/16 23:30 92 60 05/25/16 23:00 92 Bi-Pap 15.00 60 05/25/16 23:00 64 05/25/16 23:00 97.4 66 26 100/51 92 05/25/16 22:00 66 05/25/16 21:00 67 05/25/16 20:00 66 05/25/16 19:48 93 60 05/25/16 19:00 94 Bi-Pap 15.00 60 05/25/16 19:00 65 05/25/16 19:00 97.3 66 28 92/55 94 05/25/16 18:16 92 60 05/25/16 17:46 97.2 62 26 95/53 92 05/25/16 15:29 93 Bi-Pap 15.00 60 05/25/16 15:00 62 05/25/16 13:49 93 60 05/25/16 13:00 66 -: 05/24/16 0544 05/25/16 0650 Physical Exam General Appearance: Well Developed, Obese Neck Neck Exam: Neck Supple Pulmonary Resp Exam: Rhonchi, Decreased Bases Cardiology CV Exam: Arrhythmia Gastrointestinal/Abdomen GI Exam: Soft, Distended Extremeties Extremities Exam: Moderate Edema Assessment/Plan Problem List: (1) JASON (acute kidney injury) Plan: she has renal failure which is worse, UOP remained low, refused dialysis DNR per patient wishes BP dropping poor prognosis poor out come comfort measures call Nephrology if need my services Palliative care to take over today for comfort measures (2) Acute systolic congestive heart failure Plan: 35% EF (3) Coag negative Staphylococcus bacteremia Plan: ID following (4) COPD Plan: On O2 (5) CHF (congestive heart failure) Plan: EF 35% Problem Qualifiers (1) CHF (congestive heart failure): Qualified Code: I50.9 - Acute on chronic congestive heart failure, unspecified congestive heart failure type Jennifer Young MD May 26, 2016 12:40
[2016-05-26] MEDS ORDERED: WARFARIN SOD 2 MG TAB PO SCH (16:00)
--- NOTE | 2016-05-26 16:26 | HHI.PR ---
Subjective Remarks weak, high fi-2 requirement oliguric Objective Vitals Vital Signs Date Time Temp Pulse Resp B/P Pulse Ox O2 Delivery O2 Flow Rate FiO2 05/26/16 13:18 63 05/26/16 12:00 64 05/26/16 11:07 93 60 05/26/16 11:00 91 Bi-Pap 15.00 60 05/26/16 11:00 97.0 89 31 111/71 89 05/26/16 10:00 66 05/26/16 09:00 64 05/26/16 08:00 65 05/26/16 07:29 93 60 05/26/16 07:00 97.6 65 38 116/54 91 05/26/16 07:00 91 Bi-Pap 15.00 60 05/26/16 06:00 65 05/26/16 05:00 65 05/26/16 04:25 92 60 05/26/16 04:00 64 05/26/16 03:00 64 05/26/16 03:00 97.5 65 24 103/50 92 05/26/16 03:00 92 Bi-Pap 15.00 60 05/26/16 02:00 64 05/26/16 01:00 64 05/26/16 00:00 63 05/25/16 23:30 92 60 05/25/16 23:00 92 Bi-Pap 15.00 60 05/25/16 23:00 64 05/25/16 23:00 97.4 66 26 100/51 92 05/25/16 22:00 66 05/25/16 21:00 67 05/25/16 20:00 66 05/25/16 19:48 93 60 05/25/16 19:00 94 Bi-Pap 15.00 60 05/25/16 19:00 65 05/25/16 19:00 97.3 66 28 92/55 94 05/25/16 18:16 92 60 05/25/16 17:46 97.2 62 26 95/53 92 I/O 05/25/16 05/25/16 05/25/16 05/26/16 05/26/16 05/26/16 07:00 15:00 23:00 07:00 15:00 23:00 Intake Total 567 ml 50 ml 480 ml Output Total 125 ml 365 ml Balance 442 ml 50 ml 115 ml Intake Oral 480 ml 50 ml 480 ml IV Total 87 ml Output Urine Total 125 ml 365 ml # Bowel Movements 1 Result Diagram: 05/24/16 0544 05/25/16 0650 Imaging Last Impressions Renal Ultrasound 05/22/16 0000 Signed Impressions: Service Date/Time: Sunday, May 22, 2016 20:51 - CONCLUSION: 1. Hyperechoic kidneys characteristic of medical renal disease. No hydronephrosis. Cyrus Espinoza MD Chest X-Ray 05/22/16 0000 Signed Impressions: Service Date/Time: Sunday, May 22, 2016 13:22 - CONCLUSION: 1. Cardiomegaly with mild congestive failure. 2. Consolidative changes left base. Luis Miguel Russell MD FACR Objective Remarks BiPAP awake anicteric no nuchal rigidity decreased breath sounds, no rales regular rhythm abdomen- flabby soft larson in place + edema moves all extremities limited Procedures Echocardiogram 05/15/2016 SUMMARY - Left ventricle: The cavity size was mildly dilated. Wall thickness was increased in a pattern of mild LVH. Systolic function was moderately reduced. The estimated ejection fraction was 35%. Wall motion was normal; there were no regional wall motion abnormalities. - Aortic valve: Mildly calcified annulus. Trileaflet; mildly thickened, mildly calcified leaflets. Mild regurgitation. 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 - Left atrium: The atrium was mildly dilated. - Right ventricle: The cavity size was severely dilated. Wall thickness was normal. - Right atrium: The atrium was dilated. - Tricuspid valve: Wide-open regurgitation. A/P Problem List: (1) Acute hypoxemic respiratory failure ICD Code: J96.01 Status: Acute (2) Acute systolic congestive heart failure ICD Code: I50.21 Status: Resolved (3) Coag negative Staphylococcus bacteremia ICD Code: R78.81 Status: Acute (4) Hyperglycemia ICD Code: R73.9 Status: Acute (5) Fungal infection of skin ICD Code: B36.9 Status: Acute (6) JASON (acute kidney injury) ICD Code: N17.9 Status: Acute (7) Hypothyroid ICD Code: E03.9 Status: Acute Assessment and Plan Acute hypoxemic respiratory failure ICD Code: J96.01 Status: Acute Plan: sp Solumedrol treatment - no wheezing at this time on BiPap. Pulmonary ff (2) Acute systolic congestive heart failure- EF 30%. Moderate Mitral valve stenosis ICD Code: I50.21 Status: on Bumex drip. amiodarone, Coreg. Aldactone On coumadin . INR 3.2- on hold. Cardiology ff (3) Coag negative Staphylococcus bacteremia ICD Code: R78.81 Status: Acute Plan: fu ID recommendations S/P Levaquin as per ID (4) Hyperglycemia ICD Code: R73.9 Status: Acute Plan: Blood sugars stable - Continue SSI with insulin (5) Fungal infection of skin ICD Code: B36.9 Status: Acute Plan: Continue nystatin- seems to be improved (6) JASON (acute kidney injury) ICD Code: N17.9 Status: Acute Plan: worsening JASON. Oliguric Appreciate nephrology recommendations. Continue Bumex drip, patient refused hemodialysis (7) Hypothyroid ICD Code: E03.9 Status: Acute Plan: continue levothyroxine Lovenox/PPI for prophylaxis NO code Family met with hospice today earlier and will be back this pm Akhil Stout MD May 26, 2016 16:26
[2016-05-26] MEDS ORDERED: LORazepam 2 MG/ML VIAL IV PUSH PRN ×2 (17:15)
[2016-05-26] MEDS ORDERED: HYDROmorphone HCL PF 1 MG/ML VIAL IV PUSH PRN ×2 (18:30)
[2016-05-27] MEDS ORDERED: WARFARIN SOD 4 MG TAB PO SCH (16:00)
--- NOTE | 2016-06-28 07:36 | HHI.DS ---
Discharge Summary Admission Date May 13, 2016 at 00:07 Discharge Date: May 26, 2016 Admitting Diagnosis CHF; exac copd (1) Acute hypoxemic respiratory failure ICD Code: J96.01 Diagnosis: Principal (2) Acute systolic congestive heart failure ICD Code: I50.21 Diagnosis: Principal (3) Coag negative Staphylococcus bacteremia ICD Code: R78.81 Diagnosis: Principal (4) Hyperglycemia ICD Code: R73.9 Diagnosis: Secondary (5) Fungal infection of skin ICD Code: B36.9 Diagnosis: Principal (6) JASON (acute kidney injury) ICD Code: N17.9 Diagnosis: Principal (7) Hypothyroid ICD Code: E03.9 Diagnosis: Secondary Procedures Echocardiogram 05/15/2016 SUMMARY - Left ventricle: The cavity size was mildly dilated. Wall thickness was increased in a pattern of mild LVH. Systolic function was moderately reduced. The estimated ejection fraction was 35%. Wall motion was normal; there were no regional wall motion abnormalities. - Aortic valve: Mildly calcified annulus. Trileaflet; mildly thickened, mildly calcified leaflets. Mild regurgitation. 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 - Left atrium: The atrium was mildly dilated. - Right ventricle: The cavity size was severely dilated. Wall thickness was normal. - Right atrium: The atrium was dilated. - Tricuspid valve: Wide-open regurgitation. Brief History - From Admission 80-year-old female presents to the emergency department by EMS transport from home for 6 hours of shortness of breath. Shortness of breath has been progressive. Patient has history of COPD and CHF. Patient uses supplemental oxygen 2 L per minute nasal cannula at all times at home. According to EMS her O2 saturations on 2 L/m nasal cannula was 86%. Patient was identified to have diffuse expiratory wheezes and diminished breath sounds and was placed on supplemental oxygen updraft treatments 2 and administer Solu-Medrol 125 mg. Patient's had no recent fever chills or productive cough. She denies chest pain. No report of referred neck jaw back shoulder arm or abdominal pain. No report of new lower from a pain or swelling. Patient is able to relay her history although does continue to complain of some shortness of breath. Patient was initiated on BiPAP. She was accepted by critical care medicine service for admission. When I evaluated the patient she was on BiPAP with full facemask. She had diuresed him 1 with Bumex. Stated that she is sleeping better. Denied any chest pain currently at the time of admission. Imaging Last Impressions Renal Ultrasound 05/22/16 0000 Signed Impressions: Service Date/Time: Sunday, May 22, 2016 20:51 - CONCLUSION: 1. Hyperechoic kidneys characteristic of medical renal disease. No hydronephrosis. Cyrus Espinoza MD Chest X-Ray 05/22/16 0000 Signed Impressions: Service Date/Time: Sunday, May 22, 2016 13:22 - CONCLUSION: 1. Cardiomegaly with mild congestive failure. 2. Consolidative changes left base. Luis Miguel Russell MD FACR PE at Discharge BiPAP awake anicteric no nuchal rigidity decreased breath sounds, no rales regular rhythm abdomen- flabby soft larson in place + edema moves all extremities limited Pt update on day of discharge patient on 02 condition guarded Hospital Course 1, Acute Respiratory Failure sp Solumedrol treatment - no wheezing at this time on BiPap. Pulmonary ff (2) Acute systolic congestive heart failure- EF 30%. Moderate Mitral valve stenosis ICD Code: I50.21 Status: on Bumex drip. amiodarone, Coreg. Aldactone On coumadin . INR 3.2- on hold. Cardiology ff (3) Coag negative Staphylococcus bacteremia ICD Code: R78.81 Status: Acute Plan: fu ID recommendations S/P Levaquin as per ID (4) Hyperglycemia ICD Code: R73.9 Status: Acute Plan: Blood sugars stable - Continue SSI with insulin (5) Fungal infection of skin ICD Code: B36.9 Status: Acute Plan: Continue nystatin- seems to be improved (6) JASON (acute kidney injury) ICD Code: N17.9 Status: Acute Plan: worsening JASON. Oliguric Appreciate nephrology recommendations. Continue Bumex drip, patient refused hemodialysis (7) Hypothyroid ICD Code: E03.9 Status: Acute Plan: continue levothyroxine Lovenox/PPI for prophylaxis NO code Family met with hospice today earlier and will be back this pm Pt Condition on Discharge: Guarded Discharge Disposition: Hospice/Med Facility Discharge Time: <= 30 minutes Discharge Instructions Activities you can perform: Regular-No Restrictions Follow up Referrals: PCP Follow-up Akhil Stout MD Jun 28, 2016 07:36
== END 2016-05-26 21:40 | disposition hospice, inpatient (51) | DRG 189 ==
LOC: NEPC 19:58 → NEDA 05-13 00:07 → NEDH 05-13 04:05 → HCVR 05-13 05:23 → HCPC 05-15 14:54
PROVIDERS: ADMIT Internal Medicine Critical Care Medicine; ATTEND Internal Medicine
PROC: 5A09557 Assistance with Respiratory Ventilation, Greater than 96 Consecutive Hours, Continuous Positive Airway Pressure (ICD-10-PCS; principal; 2016-05-12)
DX: J96.02 Acute respiratory failure with hypercapnia (principal); I50.23 Acute on chronic systolic (congestive) heart failure; N17.9 Acute kidney failure, unspecified; J18.9 Pneumonia, unspecified organism; I42.9 Cardiomyopathy, unspecified; R78.81 Bacteremia; Z68.42 Body mass index [BMI] 45.0-49.9, adult; B95.7 Other staphylococcus as the cause of diseases classified elsewhere; I13.0 Hypertensive heart and chronic kidney disease with heart failure and stage 1 through stage 4 chronic kidney disease, or unspecified chronic kidney disease; E66.2 Morbid (severe) obesity with alveolar hypoventilation; J44.1 Chronic obstructive pulmonary disease with (acute) exacerbation; T82.857A Stenosis of other cardiac prosthetic devices, implants and grafts, initial encounter; E11.22 Type 2 diabetes mellitus with diabetic chronic kidney disease; I48.2 Chronic atrial fibrillation; B36.9 Superficial mycosis, unspecified; E11.65 Type 2 diabetes mellitus with hyperglycemia; Z99.81 Dependence on supplemental oxygen; J96.01 Acute respiratory failure with hypoxia; N18.9 Chronic kidney disease, unspecified; G47.33 Obstructive sleep apnea (adult) (pediatric); M1A.9XX0 Chronic gout, unspecified, without tophus (tophi); Z51.5 Encounter for palliative care; E78.5 Hyperlipidemia, unspecified; F41.9 Anxiety disorder, unspecified; E87.5 Hyperkalemia; E03.9 Hypothyroidism, unspecified; Z85.048 Personal history of other malignant neoplasm of rectum, rectosigmoid junction, and anus; Z79.01 Long term (current) use of anticoagulants; Z87.891 Personal history of nicotine dependence; Z66 Do not resuscitate; Z95.1 Presence of aortocoronary bypass graft; Z88.1 Allergy status to other antibiotic agents; Z88.8 Allergy status to other drugs, medicaments and biological substances; Z23 Encounter for immunization
CPT/HCPCS: 36600; 51702; 71010; 71020; 76775; 76937; 80048; 80053; 80202; 81001; 82550; 82570; 82805; 82948; 83735; 83880; 84100; 84156; 84165; 84300; 84484; 85025; 85610; 85730; 86038; 86403; 87040; 87070; 87185; 87205; 87449; 90471; 90732; 93005; 93306; 94002; 94003; 94640; 94664; 96374; 96375; C9113; G0009; J0692; J1120; J1170; J1644; J1815; J1940; J2270; J2405; J2543; J2920; J2930; J3370; J7040; J7050; P9047